=== PATIENT | female | born 1945 | race Caucasian/White ===

== ENCOUNTER → 2016-11-06 | Outpatient (CLI) | payer MEDICARE, BC ==
[2016-11-06 14:58] LABS: Calcium 9.3 mg/dL (8.4-10.2); Potassium 4.6 mmol/L (3.5-5.1); Total Bilirubin 0.4 mg/dL (0.2-1.3); Total Protein 8.1 g/dL (6.3-8.2)
--- NOTE | 2016-11-06 15:29 | XR ---
EXAMINATION TYPE: XR chest 2V DATE OF EXAM: 11/06/2016 2:47 PM COMPARISON: 05/06/16 HISTORY: Shortness of breath TECHNIQUE: Frontal and lateral views of the chest are obtained. FINDINGS: Scattered senescent parenchymal changes noted. Hyperinflation compatible with COPD. No evidence for infiltrate. No evidence for atelectasis. Heart size is stable. Mediastinal structures are stable and grossly unremarkable. No evidence for hilar prominence. Degenerative changes dorsal spine. IMPRESSION: 1. No evidence for acute pulmonary disease.
== END | disposition home or self-care (01) ==
LOC: LABWHC1 14:01
PROVIDERS: ATTEND Urology
DX: C64.2 Malignant neoplasm of left kidney, except renal pelvis (principal)
CPT/HCPCS: 36415; 71020; 80053

== ENCOUNTER → 2017-05-05 | Outpatient (CLI) | payer MEDICARE, BC ==
--- NOTE | 2017-05-05 13:13 | XR ---
EXAMINATION TYPE: XR chest 2V DATE OF EXAM: 05/05/2017 COMPARISON: 11/06/2016 HISTORY: Shortness of breath TECHNIQUE: Frontal and lateral views of the chest are obtained. FINDINGS: Scattered senescent parenchymal changes noted. Hyperinflation compatible with COPD. No evidence for infiltrate. No evidence for atelectasis. Heart size is stable. Mediastinal structures are stable and grossly unremarkable. No evidence for hilar prominence. Degenerative changes dorsal spine. IMPRESSION: 1. No evidence for acute pulmonary disease.
--- NOTE | 2017-05-05 13:20 | CT ---
EXAMINATION TYPE: CT abdomen wo con DATE OF EXAM: 05/05/2017 COMPARISON: 05/01/2016 HISTORY: Neoplasm Lt Kidney CT DLP: 160.9 mGycm Automated exposure control for dose reduction was used. TECHNIQUE: Helical acquisition of images was performed from the lung bases through the top of iliac crest to include entire abdomen. CONTRAST: Performed without Oral Contrast and without IV contrast. FINDINGS: LUNG BASES: No significant abnormality is appreciated. LIVER/GB: No significant abnormality is appreciated. PANCREAS: No significant abnormality is seen. SPLEEN: No significant abnormality is seen. ADRENALS: No significant abnormality is seen. KIDNEYS: Left nephrectomy changes identified. Left renal fossa is free of mass or tumor recurrence. T he right kidney demonstrates mild compensatory hypertrophy. Nonobstructing 3 mm calculus mid pole rig ht kidney. Additional nonobstructing calculus 3 mm lower pole right kidney. No hydronephrosis or sebastien l mass identified. BOWEL: Visualized bowel loops are of normal caliber. No obstructive change. No evidence for inflamma tory process. LYMPH NODES: No significant abnormality is appreciated. OSSEOUS STRUCTURES: Mild degenerative changes noted. FREE AIR: No free air is visualized. OTHER: IMPRESSION: 1. LEFT-SIDED NEPHRECTOMY CHANGE WITHOUT EVIDENCE FOR TUMOR RECURRENCE OR RESIDUAL MASS. 2. NONOBSTRUCTING RIGHT-SIDED NEPHROLITHIASIS.
[2017-05-05 13:27] LABS: Calcium 9.8 mg/dL (8.4-10.2); Potassium 4.9 mmol/L (3.5-5.1); Total Bilirubin 0.3 mg/dL (0.2-1.3); Total Protein 7.7 g/dL (6.3-8.2)
== END | disposition home or self-care (01) ==
LOC: RADCTMAIN 12:37
PROVIDERS: ATTEND Urology
DX: C64.2 Malignant neoplasm of left kidney, except renal pelvis (principal); N20.0 Calculus of kidney; Z88.0 Allergy status to penicillin; Z88.1 Allergy status to other antibiotic agents; Z88.2 Allergy status to sulfonamides
CPT/HCPCS: 71020; 74150; 80053

== ENCOUNTER → 2017-05-12 | Outpatient (CLI) | payer MEDICARE, BC ==
[2017-05-12 14:41] LABS: Basophils % (A) 1 %; CH 29.8; CHCM 32.3; Eosinophils # (A) 0.1 k/uL (0-0.7); Eosinophils % (A) 2 %; Luc # (Auto) 0.19; Luc % (Auto) 2; Lymphocytes # (A) 2.1 k/uL (1.0-4.8); Lymphocytes % (A) 26 %; MCH 30.2 pg (25.0-35.0); MCHC 32.5 g/dL (31.0-37.0); MCV 92.7 fL (80.0-100.0); Mean Platelet Volume 7.5; Monocytes # (A) 0.5 k/uL (0-1.0); Monocytes % (A) 7 %; Neutrophils # (A) 5.2 k/uL (1.3-7.7); Neutrophils % (A) 64 %; RBC 4.64 m/uL (3.80-5.40); RDW 13.9 % (11.5-15.5); WBC 8.2 k/uL (3.8-10.6); WBC (Perox) 7.87
[2017-05-12 15:59] LABS: Erythrocyte Sedimentation Rate 15 mm/hr (0-20)
== END | disposition home or self-care (01) ==
LOC: LABWHC1 14:25
PROVIDERS: ATTEND Internal Medicine
DX: C64.1 Malignant neoplasm of right kidney, except renal pelvis (principal)
CPT/HCPCS: 36415; 85025; 85652

== ENCOUNTER → 2017-08-07 | Outpatient (CLI) | payer MEDICARE, BC ==
--- NOTE | 2017-08-07 15:21 | XR ---
EXAMINATION TYPE: XR KUB DATE OF EXAM: 08/07/2017 COMPARISON: NONE HISTORY: Pain, urinary tract infection TECHNIQUE: One view abdominal series FINDINGS: The osseous structures are intact. The bowel gas pattern is nonspecific. Extensive postsurgical mccarty ges are noted. Vascular calcification seen. Tiny calcification pelvis 2 small to characterize. Arthro melissa of the hips and hypertrophic change of the spine. Upper abdomen not included on the film and, t herefore, limited. IMPRESSION: 1. Nonspecific abdomen.
== END ==
LOC: RADXRMAIN 14:59
PROVIDERS: ATTEND Physician Assistant
DX: N20.0 Calculus of kidney (principal)
CPT/HCPCS: 74000

== ENCOUNTER → 2017-08-27 | Outpatient (CLI) | payer MEDICARE, BC ==
--- NOTE | 2017-08-28 08:39 | US ---
EXAMINATION TYPE: US pelvic complete DATE OF EXAM: 08/27/2017 COMPARISON: CLINICAL HISTORY: R10.9 Abdominal Pelvic Pain. Repeated UTI's. Left kidney removed April 2016. Uteru s removed . Patient states having both ovaries. TECHNIQUE: Transabdominal (TA) EXAM MEASUREMENTS: Uterus: Surgically absent cm Right Ovary: 1.9 x 1.7 x 1.5 cm Left Ovary: 2.1 x 1.5 x 1.3 cm Urinary bladder is sonolucent. The posterior wall is normal 1. Uterus: Surgically absent 2. Endometrium: Surgically absent 3. Right Ovary: Appears small in size, no masses or cysts seen 4. Left Ovary: Appears small in size, no masses or cysts seen Color doppler imaging shows good vascular flow within the ovaries; there is no evidence for ovarian torsion. 5. Bilateral Adnexa: wnl 6. Posterior cul-de-sac: no free fluid IMPRESSION: 1. Normal post hysterectomy pelvic ultrasound.
== END ==
LOC: RADUSWWP 14:38
PROVIDERS: ATTEND Internal Medicine
DX: R10.9 Unspecified abdominal pain (principal); Z90.5 Acquired absence of kidney
CPT/HCPCS: 76856

== ENCOUNTER → 2017-10-27 | Outpatient (CLI) | payer MEDICARE, BC ==
--- NOTE | 2017-10-27 14:05 | XR ---
EXAMINATION TYPE: XR chest 2V DATE OF EXAM: 10/27/2017 COMPARISON: 05/05/2017 TECHNIQUE: PA and lateral views submitted. HISTORY: Renal cancer FINDINGS: The lungs are clear and there is no pneumothorax, pleural effusion, or focal pneumonia. Surgical cl ips in the abdomen noted. Hyperinflation suggests COPD. Biapical pleural thickening. Hypertrophic and degenerative change of the spine. IMPRESSION: 1. No acute process.
== END ==
LOC: RADXRMAIN 13:42
PROVIDERS: ATTEND Urology
DX: C65.9 Malignant neoplasm of unspecified renal pelvis (principal)
CPT/HCPCS: 71046

== ENCOUNTER → 2017-10-27 | Outpatient (CLI) | payer MEDICARE, BC ==
[2017-10-27 14:32] LABS: Albumin 4.4 g/dL (3.5-5.0); Calcium 9.9 mg/dL (8.4-10.2); Potassium 4.9 mmol/L (3.5-5.1); Total Bilirubin 0.3 mg/dL (0.2-1.3)
== END | disposition home or self-care (01) ==
LOC: LABWHC1 13:29
PROVIDERS: ATTEND Urology
DX: C64.2 Malignant neoplasm of left kidney, except renal pelvis (principal)
CPT/HCPCS: 36415; 71046; 80053

== ENCOUNTER → 2017-11-23 | Outpatient (CLI) | payer MEDICARE, BC ==
--- NOTE | 2017-11-23 14:56 | MR ---
EXAMINATION TYPE: MR knee RT wo con DATE OF EXAM: 11/23/2017 COMPARISON: Outside right knee x-ray July 28, 2017 HISTORY: Right knee pain per order. Inner knee pain and swelling since [place] per patient. TECHNIQUE: Multiplanar, multisequence images of the knee is performed without IV contrast. FINDINGS: MEDIAL MENISCUS: Anterior horn is intact without tear. Oblique increased signal posterior horn is pre sent extending to inferior articular surface sagittal image 11. LATERAL MENISCUS: Anterior and posterior horns are intact without tear. CRUCIATE LIGAMENTS: The anterior and posterior cruciate ligaments are intact and unremarkable. COLLATERAL LIGAMENTS: The medial collateral ligament and lateral collateral ligament complex are inta ct and unremarkable. EXTENSOR MECHANISM: Visualized quadriceps and patellar tendons are intact. EFFUSION: Small to moderate size suprapatellar joint effusion. POPLITEAL CYST: No popliteal/raymond cyst. TRICOMPARTMENT SPACES: There is mild to moderate joint space loss patellofemoral compartment. There i s mild joint space loss laterally medial tibiofemoral compartments. No significant spurring is seen. CARTILAGE: There is chondromalacia patella with fissuring and cartilaginous loss likely posterior pat ellar pole. There is full-thickness loss noted superiorly. No reactive osseous changes are identified . Some fissuring and cartilaginous loss medial tibiofemoral compartment is noted. BONE MARROW SIGNAL: No focal abnormal marrow signal is appreciated. OTHER: No additional significant abnormality is appreciated. IMPRESSION: 1. Full-thickness tear posterior horn of medial meniscus. 2. Small to moderate size suprapatellar joint effusion. 3. Mild to moderate tricompartment degenerative changes with full-thickness chondromalacia patella no lissy superiorly. No reactive osseous changes identified.
== END | disposition home or self-care (01) ==
LOC: RADMRIMAIN 13:14
PROVIDERS: ATTEND Orthopaedic Surgery
DX: S83.241A Other tear of medial meniscus, current injury, right knee, initial encounter (principal); M22.41 Chondromalacia patellae, right knee

== ENCOUNTER → 2017-12-29 | Outpatient (CLI) | payer MEDICARE, BC ==
[2017-12-29 14:20] LABS: Basophils % (A) 1 %; Eosinophils # (A) 0.1 k/uL (0-0.7); Eosinophils % (A) 2 %; HCT 43.5 % (34.0-46.0); HGB 13.9 gm/dL (11.4-16.0); Lymphocytes # (A) 2.3 k/uL (1.0-4.8); Lymphocytes % (A) 29 %; MCH 29.5 pg (25.0-35.0); MCV 92.2 fL (80.0-100.0); Mean Platelet Volume 6.8; Monocytes # (A) 0.5 k/uL (0-1.0); Monocytes % (A) 6 %; Neutrophils # (A) 4.8 k/uL (1.3-7.7); Neutrophils % (A) 60 %; Platelet Count 315 k/uL (150-450); RBC 4.72 m/uL (3.80-5.40)
[2017-12-29 14:36] LABS: Potassium 4.8 mmol/L (3.5-5.1)
== END | disposition home or self-care (01) ==
LOC: LABPAT 13:41
PROVIDERS: ATTEND Orthopaedic Surgery
DX: Z01.812 Encounter for preprocedural laboratory examination (principal); Z01.818 Encounter for other preprocedural examination; M23.91 Unspecified internal derangement of right knee
CPT/HCPCS: 36415; 80051; 85025; 93005

== ENCOUNTER → 2018-01-12 | Outpatient (CLI) | payer MEDICARE, BC ==
[~2018-01-12] MED LIST: ONDANSETRON 4 MG/2 ML VIAL ONE
== END | disposition home or self-care (01) ==
LOC: LABWHC1 14:07
PROVIDERS: ATTEND Urology
DX: C64.2 Malignant neoplasm of left kidney, except renal pelvis (principal)
CPT/HCPCS: 36415; 82565; 84520

== ENCOUNTER → 2018-01-14 | Day surgery (SDC) | payer MEDICARE, BC ==
[2018-01-12 10:04] VITALS: BMI 24.5
--- NOTE | 2018-01-13 14:56 | HP ---
HISTORY AND PHYSICAL REASON FOR ADMISSION: Surgery scheduled for 01/14/2018 HISTORY OF PRESENT ILLNESS: Donna Holland is a 72-year-old patient seen with progressive right knee pain. We discussed treatment options. She elected to proceed with right knee arthroscopy. Consent was obtained. PAST MEDICAL HISTORY: Hypertension. PAST SURGICAL HISTORY: Cataract surgery, hysterectomy. MEDICATIONS: Daily medications include: Inderal, Tylenol. ALLERGIES: PENICILLIN, SULFA, ERYTHROMYCINS, DILANTIN. SOCIAL HISTORY: Patient denies tobacco use. PHYSICAL EXAMINATION: Evaluation right knee range of motion 0 to 130 degrees. Mild effusion. Tenderness along the medial joint line. Positive medial Dustin's. Medial crepitus with range of motion. Ligaments stable. Hip rotation without pain. Distal neurovascular exam intact. RADIOGRAPHS: Radiographs of the right knee revealed moderate osteoarthritis. MRI of the right knee revealed a medial meniscal tear. IMPRESSION: 1. Internal derangement right knee with medial meniscal tear. 2. Right knee osteoarthritis. 3. Hypertension. PLAN: Right knee arthroscopy with partial meniscectomy and debridement. Surgery scheduled for 01/14/18. MMODL / IJN: [id number] /
[~2018-01-14] MED LIST changes: +BUPIVACAINE (PF) 0.25% 30 ML VIAL SQ ONE; +CLINDAMYCIN 900 MG in DEXTROSE 5% IN WATER 50 ML IVPB ONE; +DEXAMETHASONE SOD PHOSPHATE 10 MG/ML 1 ML VIAL IV ONE; +HYDROcodone/APAP 5-325MG 1 EACH TAB PO ONE; +HYDROmorphone 0.5 MG/0.5 ML SYRINGE IVP PRN; +LACTATED RINGERS 1,000 ML IV SCH; +LIDOCAINE 1% 20 ML VIAL (10MG/ML) FOR IV START INTRADERMA PRN; +LIDOCAINE 1% INJ 10MG/ML (20 ML MDV) ONE; +MIDAZOLAM 2 MG/2 ML VIAL IV PRN; +MIDAZOLAM 2 MG/2 ML VIAL ONE; +MORPHINE SULFATE 2 MG/ML SYRINGE IV PRN; +ONDANSETRON 4 MG/2 ML VIAL IVP ONE; -ONDANSETRON 4 MG/2 ML VIAL ONE; +PROPOFOL 10 MG/ML 20 ML VIAL IV ONE; +SCOPOLAMINE 1.5MG/72HR PATCH TRANSDERM ONE; +SUCCINYLCHOLINE CHLORIDE 100 MG/5 ML SYR IV ONE; +fentaNYL (PF) 50 MCG/ML 2 ML AMP IV PRN; +fentaNYL (PF) 50 MCG/ML 2 ML AMP ONE
[2018-01-14 06:59] LABS: Glucose,Whole Blood 74 mg/dL (75-99)
[2018-01-14 08:21] VITALS: RESP 16; TEMP 97.2
--- NOTE | 2018-01-14 08:22 | P.OP ---
Date of Procedure: 01/14/18 Preoperative Diagnosis: Internal derangement right knee Postoperative Diagnosis: 1. Tear medial and lateral meniscus right knee 2. Grade 3 chondromalacia medial femoral condyle right knee 3. Grade 3 chondromalacia patella right knee 4. Reactive synovitis medial and suprapatellar compartments right knee Procedure(s) Performed: 1. Arthroscopic partial medial and lateral meniscectomy right knee 2. Arthroscopic chondroplasty medial femoral condyle right knee 3. Arthroscopic chondroplasty patella right knee 4. Arthroscopic partial synovectomy medial and suprapatellar compartments right knee Anesthesia: NATHALIEA, local Surgeon: Joe Pendleton Estimated Blood Loss (ml): 9 Pathology: none sent Condition: stable Disposition: PACU Indications for Procedure: 72-year-old patient seen with progressive right knee pain. After having treatment options discussed, she elected to proceed with arthroscopy. Operative Findings: see description of procedure Description of Procedure: Patient was taken to the operative suite. Patient underwent a general anesthetic by the department of anesthesia. Patient was given preoperative antibiotics. The right lower extremity was placed in a well-padded arthroscopic leg martin. The right leg was prepped and draped in the normal sterile orthopedic fashion. A lateral parapatellar and suprapatellar incision was made. Trochars were inserted. Arthroscopy was initiated. Suprapatellar pouch revealed diffuse thick reactive synovitis. The patellofemoral joint appeared to articulate congruently. There was grade 3 chondromalacia with osteochondral tears involving both the medial and lateral facets.. The scope was guided into the medial gutter. No loose bodies or plica were identified. The scope was then guided into the medial compartment. A medial parapatellar incision was made. Trocar inserted followed by probe. There was a complex tear posterior horn medial meniscus. There were grade 3 chondromalacia changes medial femoral condyle with osteochondral tears. There was reactive synovitis anteriorly. I performed a partial medial meniscectomy down to stable tissue. I performed a chondroplasty of the femoral condyle and partial synovectomy. The residual meniscus and osteochondral surface were stable. Scope and probe were then guided into the intercondylar notch. Cruciates were identified, probed and found to be stable. The scope and probe were then guided into lateral compartment. There was a small radial tear mid body lateral meniscus. Mild grade 1 chondromalacia changes of the tibial plateau with no osteochondral tears. No reactive synovitis or loose bodies. I performed a partial lateral meniscectomy down to stable tissue. The residual meniscus was stable. The scope was in guided back into the suprapatellar compartment. I introduced a motorized shaver into the suprapatellar compartment. I debrided some piecemeal fragments of meniscus I encountered. I performed a partial synovectomy. I performed a chondroplasty of the patella down to stable tissue. The residual osteochondral surface of patella was probed and found to be stable. I took one more look around the entire knee, no residual debris. Instruments were now removed from the joint. The joint was infiltrated with .25% Marcaine. Steri- Strips were applied to the portal sites. Sterile dressings were applied. The patient was placed into a REJI hose. No tourniquet was utilized. The patient was awakened, transferred to a bed and taken to recovery stable satisfactory condition.
[2018-01-14 09:37] VITALS: BP 143/79; PULSE 74
== END | disposition home or self-care (01) ==
LOC: OR 06:13
PROVIDERS: ATTEND Orthopaedic Surgery
DX: S83.231A Complex tear of medial meniscus, current injury, right knee, initial encounter (principal); S83.281A Other tear of lateral meniscus, current injury, right knee, initial encounter; X58.XXXA Exposure to other specified factors, initial encounter; M94.261 Chondromalacia, right knee; M22.41 Chondromalacia patellae, right knee; M65.861 Other synovitis and tenosynovitis, right lower leg; M25.461 Effusion, right knee; M24.851 Other specific joint derangements of right hip, not elsewhere classified; M17.11 Unilateral primary osteoarthritis, right knee; I10 Essential (primary) hypertension; R56.9 Unspecified convulsions; R25.1 Tremor, unspecified; Z90.5 Acquired absence of kidney; Z79.82 Long term (current) use of aspirin; Z79.899 Other long term (current) drug therapy; Z88.1 Allergy status to other antibiotic agents; Z88.0 Allergy status to penicillin; Z88.2 Allergy status to sulfonamides; Z88.8 Allergy status to other drugs, medicaments and biological substances; Z88.7 Allergy status to serum and vaccine
CPT/HCPCS: 29880; J2250; J1100; J2405; J2001; J3010; J0330; J2704

== ENCOUNTER → 2018-02-09 | Outpatient (CLI) | payer MEDICARE, BC ==
[2018-02-09 15:57] LABS: HGB 13.6 gm/dL (11.4-16.0); MCH 29.8 pg (25.0-35.0); MCHC 32.4 g/dL (31.0-37.0); Mean Platelet Volume 6.3; Platelet Count 316 k/uL (150-450); RBC 4.56 m/uL (3.80-5.40); WBC 7.7 k/uL (3.8-10.6)
[2018-02-09 16:14] LABS: Albumin 4.3 g/dL (3.5-5.0); Calcium 9.4 mg/dL (8.4-10.2); Potassium 4.4 mmol/L (3.5-5.1); Total Bilirubin 0.3 mg/dL (0.2-1.3); Total Protein 7.2 g/dL (6.3-8.2)
[2018-02-09 19:25] LABS: Erythrocyte Sedimentation Rate 13 mm/hr (0-20)
== END | disposition home or self-care (01) ==
LOC: LABWHC1 14:53
PROVIDERS: ATTEND Internal Medicine
DX: M25.50 Pain in unspecified joint (principal); I10 Essential (primary) hypertension; E78.2 Mixed hyperlipidemia; J44.9 Chronic obstructive pulmonary disease, unspecified
CPT/HCPCS: 36415; 80053; 84443; 85027; 85652; 86038

== ENCOUNTER → 2018-04-26 | Outpatient (CLI) | payer MEDICARE, BC ==
--- NOTE | 2018-04-26 15:27 | XR ---
EXAMINATION TYPE: XR chest 2V DATE OF EXAM: 04/26/2018 COMPARISON: NONE HISTORY: Renal cell carcinoma. Surveillance. TECHNIQUE: Frontal and lateral views of the chest are obtained. FINDINGS: There is no focal air space opacity, pleural effusion, or pneumothorax seen. Pulmonary hyp erinflation with biapical lucency again suggest underlying COPD. The cardiac silhouette size is withi n normal limits. Mild multilevel degenerative changes of the thoracic spine are noted. The osseous s tructures are intact. There are postsurgical changes in the upper abdomen. IMPRESSION: No acute cardiopulmonary process. Radiographic sequela of COPD.
--- NOTE | 2018-04-26 16:59 | CT ---
EXAMINATION TYPE: CT abdomen wo con DATE OF EXAM: 04/26/2018 COMPARISON: 05/05/2017 HISTORY: 72-year-old female follow-up renal cell cancer and left nephrectomy. TECHNIQUE: Contiguous axial scanning of the abdomen without IV contrast. Coronal and sagittal reconst ructions performed. CT DLP: 213.9 mGycm Automated exposure control for dose reduction was used. FINDINGS: Heart normal size without pericardial effusion. Strandy atelectasis or scarring at the left base. No pleural effusion. Noncontrast appearance of the liver, gallbladder, right adrenal gland, spleen, and pancreas shows no gross abnormality. A few punctate 2 mm calculi in the right kidney. No hydronephrosis. Status post left nephrectomy with surgical clips in the nephrectomy bed. No suspicious soft tissue or nodularity within the nephrectomy bed. The left adrenal gland is difficult to clearly delineate due to the vessels coursing through this region and surgical material. Couple additional surgical clips i n the left para-aortic region. Moderate atherosclerotic calcifications throughout the abdominal aorta and proximal iliac arteries. No mesenteric or retroperitoneal lymphadenopathy seen. No dilated small bowel, free fluid, or free air. No significant stool burden or pericolonic inflammat ory change seen in the upper abdomen. Bones: Mild degenerative disc disease throughout the lumbar spine. Facet arthropathy lower lumbar spi ne. IMPRESSION: 1. STATUS POST LEFT NEPHRECTOMY. NO EVIDENCE FOR LOCOREGIONAL RECURRENCE OR METASTATIC DISEASE ON THI S NONCONTRAST CT. 2. STABLE NONOBSTRUCTIVE PUNCTATE 2 MM RIGHT RENAL CALCULI.
== END | disposition home or self-care (01) ==
LOC: RADCTMAIN 14:48
PROVIDERS: ATTEND Urology
DX: N20.0 Calculus of kidney (principal); J44.9 Chronic obstructive pulmonary disease, unspecified; Z85.528 Personal history of other malignant neoplasm of kidney; Z90.5 Acquired absence of kidney
CPT/HCPCS: 71046; 74150

== ENCOUNTER → 2018-05-18 | Outpatient (CLI) | payer MEDICARE, BC ==
--- NOTE | 2018-05-19 12:11 | MM ---
Reason for exam: screening (asymptomatic). Last mammogram was performed 1 year and 8 months ago. History: Patient is postmenopausal and has history of other cancer at age 70. Implant Removal of both breasts, 1998. Took estrogen for 1 year beginning at age 50. Physical Findings: A clinical breast exam by your physician is recommended on an annual basis and results should be correlated with mammographic findings. MG 3D Screening Mammo W/Cad Bilateral CC and MLO view(s) were taken. Prior study comparison: September 22, 2016, bilateral MG 3d screening mammo w/cad. April 06, 2015, bilateral MG screening mammo w CAD. The breast tissue is heterogeneously dense. This may lower the sensitivity of mammography. No suspicious abnormality. No significant changes when compared with prior studies. ASSESSMENT: Negative, BI-RAD 1 RECOMMENDATION: Routine screening mammogram of both breasts in 1 year.
== END | disposition home or self-care (01) ==
LOC: RADMAMWWP 13:07
PROVIDERS: ATTEND Internal Medicine
DX: Z12.31 Encounter for screening mammogram for malignant neoplasm of breast (principal)
CPT/HCPCS: 77063; 77067

== ENCOUNTER → 2018-08-10 | Outpatient (CLI) | payer MEDICARE, BC ==
[2018-08-10 15:18] LABS: HCT 42.6 % (34.0-46.0); MCH 31.1 pg (25.0-35.0); MCHC 32.8 g/dL (31.0-37.0); MCV 94.7 fL (80.0-100.0); Mean Platelet Volume 6.8; Platelet Count 305 k/uL (150-450); WBC 6.9 k/uL (3.8-10.6)
[2018-08-10 17:38] LABS: Erythrocyte Sedimentation Rate 6 mm/hr (0-20)
== END | disposition home or self-care (01) ==
LOC: LABWHC1 14:10
PROVIDERS: ATTEND Internal Medicine
DX: Z48.816 Encounter for surgical aftercare following surgery on the genitourinary system (principal); Z90.5 Acquired absence of kidney
CPT/HCPCS: 36415; 82565; 84520; 85027; 85652

== ENCOUNTER 2019-01-24 12:49 | Observation (INO) | payer MEDICARE, BC ==
[2019-01-24] MEDS ORDERED: SODIUM CHLORIDE 0.9% 1,000 ML IV STA ×2 (13:03)
--- NOTE | 2019-01-24 13:20 | ED ---
Chest Pain HPI - General Chief Complaint: Chest Pain Stated Complaint: palpitations Time Seen by Provider: 01/24/19 13:03 Source: patient Mode of arrival: ambulatory Limitations: no limitations - Related Data Home Medications Medication Instructions Recorded Confirmed Aspirin 81 mg PO DAILY 11/20/14 01/24/19 PHENobarbital [Phenobarbital] 32.4 mg PO BID 11/20/14 01/24/19 Metoprolol Succinate (ER) [Toprol 50 mg PO DAILY 01/12/18 01/24/19 Xl] Multivitamins, Thera [Multivitamin 1 tab PO DAILY 01/12/18 01/24/19 (formulary)] Acetaminophen [Tylenol] 650 mg PO Q4H PRN 01/24/19 01/24/19 Allergies Allergy/AdvReac Type Severity Reaction Status Date / Time benoxinate HCl [From Fluress] Allergy Unknown Verified 01/24/19 14:52 erythromycin base Allergy Wheezing Verified 01/24/19 14:52 fluorescein sodium Allergy Unknown Verified 01/24/19 14:52 [From Fluress] Influenza Virus Vaccines Allergy tremors,muscle Verified 01/24/19 14:52 weakness Penicillins Allergy TONGUE Verified 01/24/19 14:52 SWELLING phenytoin sodium Allergy HIGH FEVER Verified 01/24/19 14:52 [From Dilantin] phenytoin sodium extended Allergy HIGH FEVER Verified 01/24/19 14:52 [From Dilantin] Sulfa (Sulfonamide AdvReac Wheezing Verified 01/24/19 14:52 Antibiotics) Review of Systems ROS Statement: Those systems with pertinent positive or pertinent negative responses have been documented in the HPI. ROS Other: All systems not noted in ROS Statement are negative. EKG Findings - EKG Comments: EKG Findings:: EKG shows sinus rhythm rate of 89, NC 136, QRS 72, QTc 406 Past Medical History Past Medical History: Cancer, Eye Disorder, Hyperlipidemia, Hypertension, Osteoarthritis (OA), Seizure Disorder Additional Past Medical History / Comment(s): two seizures in 1970's, varicose veins, left kidney mass, hiatal hernia, kidney cancer History of Any Multi-Drug Resistant Organisms: None Reported Past Surgical History: Hysterectomy, Tonsillectomy Additional Past Surgical History / Comment(s): CYSTOCELE repair,VEIN STRIPPING, left cataract Past Anesthesia/Blood Transfusion Reactions: Motion Sickness, Postoperative Nausea & Vomiting (PONV) Additional Past Anesthesia/Blood Transfusion Reaction / Comment(s): HAD SEVERE TREMORS POST SPINAL ANESTHESIA Past Psychological History: No Psychological Hx Reported Smoking Status: Former smoker Past Alcohol Use History: None Reported Past Drug Use History: None Reported - Past Family History Mother Family Medical History: Coronary Artery Disease (CAD), Hypertension Additional Family Medical History / Comment(s): CABG Father Family Medical History: Cancer Additional Family Medical History / Comment(s): COLON Sister(s) Family Medical History: Cancer Additional Family Medical History / Comment(s): OVARIAN General Exam Limitations: no limitations General appearance: alert, in no apparent distress Head exam: Present: atraumatic, normocephalic, normal inspection Eye exam: Present: normal appearance, PERRL, EOMI. Absent: scleral icterus, conjunctival injection, periorbital swelling ENT exam: Present: normal exam, mucous membranes moist Neck exam: Present: normal inspection. Absent: tenderness, meningismus, lymphadenopathy Respiratory exam: Present: normal lung sounds bilaterally. Absent: respiratory distress, wheezes, rales, rhonchi, stridor Cardiovascular Exam: Present: regular rate, normal rhythm, normal heart sounds. Absent: systolic murmur, diastolic murmur, rubs, gallop, clicks GI/Abdominal exam: Present: soft, normal bowel sounds. Absent: distended, tenderness, guarding, rebound, rigid Extremities exam: Present: normal inspection, full ROM, normal capillary refill. Absent: tenderness, pedal edema, joint swelling, calf tenderness Back exam: Present: normal inspection Neurological exam: Present: alert, oriented X3, CN II-XII intact Psychiatric exam: Present: normal affect, normal mood Skin exam: Present: warm, dry, intact, normal color. Absent: rash Course Vital Signs 01/24/19 01/24/19 01/24/19 12:53 13:12 14:33 Temperature 98.2 F Pulse Rate 148 H 92 76 Respiratory 20 18 18 Rate Blood Pressure 176/112 175/92 165/81 O2 Sat by Pulse 96 98 100 Oximetry - Reevaluation(s) Reevaluation #1: 01/24/19 15:23 Medical record reviewed Reevaluation #2: 01/24/19 15:23 she remains in normal sinus rhythm here in the ER Reevaluation #3: 01/24/19 15:24 Patient explained at length regarding findings, need for cardiology evaluation and admission Chest Pain MDM - MDM 73 female to ED for palpitations, arrhythmia. Patient is no longer arrhythmia she converted being brought back to the room. Patient be admitted for cardiology evaluation Disposition Clinical Impression: Atypical chest pain, Arrhythmia, Tachycardia Disposition: ADMITTED IP TO THIS HOSP Condition: Fair Is patient prescribed a controlled substance at d/c from ED?: No
[2019-01-24 13:41] LABS: Basophils # (A) 0.1 k/uL (0-0.2); Basophils % (A) 1 %; Eosinophils # (A) 0.2 k/uL (0-0.7); Eosinophils % (A) 2 %; HCT 45.3 % (34.0-46.0); HGB 14.7 gm/dL (11.4-16.0); Lymphocytes # (A) 2.3 k/uL (1.0-4.8); Lymphocytes % (A) 30 %; MCH 29.6 pg (25.0-35.0); MCHC 32.5 g/dL (31.0-37.0); MCV 91.2 fL (80.0-100.0); Mean Platelet Volume 6.6; Monocytes # (A) 0.6 k/uL (0-1.0); Monocytes % (A) 8 %; Neutrophils # (A) 4.4 k/uL (1.3-7.7); Neutrophils % (A) 57 %; Platelet Count 302 k/uL (150-450); RBC 4.97 m/uL (3.80-5.40); WBC 7.7 k/uL (3.8-10.6)
--- NOTE | 2019-01-24 13:44 | XR ---
EXAMINATION TYPE: XR chest 2V DATE OF EXAM: 01/24/2019 COMPARISON: Prior chest x-ray 04/26/2018 HISTORY: Chest pain TECHNIQUE: Frontal and lateral views of the chest are obtained. FINDINGS: There is no focal air space opacity, pleural effusion, or pneumothorax seen. The cardiac silhouette size is within normal limits. There are overlying cardiac leads. The aorta is dense. Surgi janene clips present in the upper abdomen. Prominent lung volume may be indicative of underlying COPD. T he osseous structures are intact. IMPRESSION: No acute cardiopulmonary process.
[2019-01-24 13:47] LABS: Albumin 4.6 g/dL (3.5-5.0); Calcium 9.9 mg/dL (8.4-10.2); Magnesium 2.2 mg/dL (1.6-2.3); Potassium 4.5 mmol/L (3.5-5.1); Total Bilirubin 0.4 mg/dL (0.2-1.3); Total Protein 8.2 g/dL (6.3-8.2)
[2019-01-24 13:54] LABS: INR 0.9 (<1.2); Partial Thromboplastin Time 24.3 sec (22.0-30.0); Prothrombin Time 9.8 sec (9.0-12.0)
[2019-01-24] MEDS ORDERED: HEPARIN SODIUM,PORCINE 5,000 UNIT/ML 1 ML VIAL IV PRN (14:01)
[2019-01-24] MEDS ORDERED: HEPARIN SODIUM,PORCINE 5,000 UNIT/ML 1 ML VIAL IV ONE (14:01)
[2019-01-24] MEDS ORDERED: NITROGLYCERIN SL TABS 0.4 MG TAB SUBLINGUAL PRN (14:01)
[2019-01-24] MEDS ORDERED: HEPARIN SOD,PORK IN 0.45% NACL 25,000 UNIT in 0.45% NACL 1 250ML.BAG IV SCH (14:15)
--- NOTE | 2019-01-24 15:32 | P.HPIM ---
History of Present Illness H&P Date: 01/24/19 Chief Complaint: Heart palpitations This is a 73-year-old female, patient of Dr. Oliver. She has a known past medical history of hypertension, hyperlipidemia, any cancer with a left nephrectomy, seizure disorder last seizure was in . Patient reports this morning she could feel palpitations on the left side of her chest she felt that her heart was pounding. Also having a burning sensation on the left side of her chest. She reports the symptoms were behind the left breast. She took her vitals at home she reports that her pulse was running between the 140s to 150s. She reports taking her metoprolol home and not skipping any dosages. She admits to feeling a little nauseated and fatigued. She denies any actual chest pain. She denies any vomiting, bowel movement changes or urinary symptoms. Denies any abdominal pain. Denies any cough fever chills or sweats. She denies any history of cardiac arrhythmias. Her last stress test was about 6 years ago and she reports that being normal. She denies any thyroid abnormality. Thyroid level will be checked. Magnesium is 2.2. Chest x-ray negative. EKG showing a normal sinus rhythm. She is currently on IV heparin. Her initial heart rate on admission was 148 is down to 76. Blood pressure was 176/112 and is now 165/81. Satting at 100% on 2 L. First troponin is negative. She does have a mildly stephen vated lipase of 404. Denies any alcohol history. Denies any history of pancreatitis. Denies any abdominal pain. Patient seen and examined in the ER Review of Systems Please refer to HPI otherwise unremarkable Past Medical History Past Medical History: Cancer, Eye Disorder, Hyperlipidemia, Hypertension, Osteoarthritis (OA), Seizure Disorder Additional Past Medical History / Comment(s): two seizures in , varicose veins, left kidney mass, hiatal hernia, kidney cancer History of Any Multi-Drug Resistant Organisms: None Reported Past Surgical History: Hysterectomy, Tonsillectomy Additional Past Surgical History / Comment(s): CYSTOCELE repair,VEIN STRIPPING, left cataract Past Anesthesia/Blood Transfusion Reactions: Motion Sickness, Postoperative Nausea & Vomiting (PONV) Additional Past Anesthesia/Blood Transfusion Reaction / Comment(s): HAD SEVERE TREMORS POST SPINAL ANESTHESIA Past Psychological History: No Psychological Hx Reported Smoking Status: Former smoker Past Alcohol Use History: None Reported Past Drug Use History: None Reported - Past Family History Mother Family Medical History: Coronary Artery Disease (CAD), Hypertension Additional Family Medical History / Comment(s): CABG Father Family Medical History: Cancer Additional Family Medical History / Comment(s): COLON Sister(s) Family Medical History: Cancer Additional Family Medical History / Comment(s): OVARIAN Medications and Allergies Home Medications Medication Instructions Recorded Confirmed Type Aspirin 81 mg PO DAILY 11/20/14 01/24/19 History PHENobarbital [Phenobarbital] 32.4 mg PO BID 11/20/14 01/24/19 History Metoprolol Succinate (ER) [Toprol 50 mg PO DAILY 01/12/18 01/24/19 History Xl] Multivitamins, Thera [Multivitamin 1 tab PO DAILY 01/12/18 01/24/19 History (formulary)] Acetaminophen [Tylenol] 650 mg PO Q4H PRN 01/24/19 01/24/19 History Allergies Allergy/AdvReac Type Severity Reaction Status Date / Time benoxinate HCl [From Fluress] Allergy Unknown Verified 01/24/19 14:52 erythromycin base Allergy Wheezing Verified 01/24/19 14:52 fluorescein sodium Allergy Unknown Verified 01/24/19 14:52 [From Fluress] Influenza Virus Vaccines Allergy tremors,muscle Verified 01/24/19 14:52 weakness Penicillins Allergy TONGUE Verified 01/24/19 14:52 SWELLING phenytoin sodium Allergy HIGH FEVER Verified 01/24/19 14:52 [From Dilantin] phenytoin sodium extended Allergy HIGH FEVER Verified 01/24/19 14:52 [From Dilantin] Sulfa (Sulfonamide AdvReac Wheezing Verified 01/24/19 14:52 Antibiotics) Physical Exam Vitals: Vital Signs Temp Pulse Resp BP Pulse Ox 01/24/19 14:33 76 18 165/81 100 01/24/19 13:12 92 18 175/92 98 01/24/19 12:53 98.2 F 148 H 20 176/112 96 Intake and Output 01/24/19 01/24/19 01/24/19 06:59 14:59 22:59 Other: Weight 68.039 kg Head normocephalic Neck supple Lungs clear to auscultation bilaterally no wheezing or crackles Heart regular rate and rhythm S1-S2, no rub or gallop Abdomen is soft nontender nondistended positive bowel sounds no hepatosplenomegaly Extremities no edema Neuro alert and orientated to 3 Results CBC & Chem 7: 01/24/19 13:14 01/24/19 13:14 Labs: Abnormal Lab Results - Last 24 Hours (Table) 01/24/19 Range/Units 13:14 Sodium 136 L (137-145) mmol/L BUN 22 H (7-17) mg/dL Creatinine 1.14 H (0.52-1.04) mg/dL Glucose 106 H (74-99) mg/dL Lipase 404 H (23-300) U/L Assessment and Plan Assessment: 1. Palpitations with tachycardia heart rate in the 140s on admission. Converted spontaneously back to a normal sinus rhythm. EKG normal sinus rhythm heart rate in the 70s. Patient started on IV heparin in the ER. Cardiology has been placed on consult. Magnesium normal at 2.2 potassium normal at 4.5. Check thyroid level. First troponin is negative. We'll resume metoprolol. Chest x- ray negative 2. Chest discomfort with burning sensation. Monitor cardiac enzymes. Await cardiology evaluation. Last stress test 5 years ago reported normal. 3. Elevated lipase 404. Repeat lipase in a.m. Denies abdominal pain, denies any alcohol use 4. History of kidney cancer with left nephrectomy 04/30/2016 5. History of seizure disorder continue the phenobarbital. Last seizure was in 1970s 6. Essential hypertension GI prophylaxis Protonix and DVT prophylaxis IV heparin Time with Patient: Greater than 30 (Greater than 50% of the total time spent in counseling and coordination of care.I performed an examination of the patient and discussed their management with the physician Dean For Student Affairs. I have reviewed the Physician Dean For Student Affairs's notes and agree with the documented findings and plan of care)
[2019-01-24] MEDS ORDERED: ACETAMINOPHEN TAB 325 MG TAB PO PRN (15:33)
[2019-01-24 23:07] LABS: T4, Free (Free Thyroxine) 0.75 ng/dL (0.78-2.19)
[2019-01-24] MEDS: PHENobarbital 32.4 MG TAB PO SCH (23:36)
[2019-01-25 00:43] LABS: Appearance,Urine Clear (Clear); Bacteria,Urine Many /hpf; Bilirubin,Urine Negative (Negative); Blood,Urine Negative (Negative); Color,Urine Yellow; Glucose,Urine (UA) Negative (Negative); Hyaline Casts,Urine 18 /lpf (0-2); Ketones,Urine Negative (Negative); Leukocyte Esterase,Urine Moderate (Negative); Mucus,Urine Rare /hpf; Nitrite,Urine Negative (Negative); PH, Urine 5.5 (5.0-8.0); Protein,Urine Negative (Negative); RBC,Urine <1 /hpf (0-5); Specific Gravity,Urine 1.018 (1.001-1.035); Squamous Epithelial Cell,Urine 5 /hpf (0-4); Urobilinogen,Urine <2.0 mg/dL (<2.0); WBC,Urine 20 /hpf (0-5)
[2019-01-25 05:04] LABS: Basophils % (A) 0 %; Eosinophils # (A) 0.2 k/uL (0-0.7); Eosinophils % (A) 2 %; HGB 13.7 gm/dL (11.4-16.0); Lymphocytes # (A) 2.8 k/uL (1.0-4.8); Lymphocytes % (A) 33 %; MCH 29.1 pg (25.0-35.0); MCHC 31.9 g/dL (31.0-37.0); MCV 91.3 fL (80.0-100.0); Mean Platelet Volume 6.6; Monocytes # (A) 0.6 k/uL (0-1.0); Monocytes % (A) 7 %; Neutrophils # (A) 4.8 k/uL (1.3-7.7); Neutrophils % (A) 56 %; Platelet Count 295 k/uL (150-450); RBC 4.71 m/uL (3.80-5.40); RDW 13.1 % (11.5-15.5); WBC 8.6 k/uL (3.8-10.6)
[2019-01-25 05:27] LABS: Albumin 3.9 g/dL (3.5-5.0); Calcium 9.3 mg/dL (8.4-10.2); Magnesium 2.1 mg/dL (1.6-2.3); Potassium 4.3 mmol/L (3.5-5.1); Total Bilirubin 0.3 mg/dL (0.2-1.3)
[2019-01-25 07:22] VITALS: RESP 18
[2019-01-25] MEDS ORDERED: PANTOPRAZOLE 40 MG TABLET PO SCH (07:30)
[2019-01-25] MEDS ORDERED: ATORVASTATIN 80 MG TAB PO SCH (09:00)
[2019-01-25] MEDS ORDERED: ASPIRIN 325 MG TAB PO SCH (09:00)
[2019-01-25] MEDS ORDERED: METOPROLOL SUCCINATE (ER) 50 MG TAB.ER.24H PO SCH (09:00)
--- NOTE | 2019-01-25 10:12 | US ---
EXAMINATION TYPE: US abdomen complete DATE OF EXAM: 01/25/2019 COMPARISON: CT CLINICAL HISTORY: nausae elev lipase. EXAM MEASUREMENTS: Liver Length: 13.3 cm Gallbladder Wall: 0.2 cm CBD: 0.4 cm Spleen: 9.4 cm Right Kidney: 11.1 x 3.9 x 5.9 cm Left Kidney: Surgically absent Pancreas: visualized portions wnl Liver: wnl Gallbladder: No stones seen Evidence for sonographic Cardenas's sign: No CBD: wnl Spleen: wnl Right Kidney: No hydronephrosis or masses seen Left Kidney: Surgically absent Upper IVC: wnl Abd Aorta: wnl The liver is homogenous. The intrahepatic portion of the IVC and proximal abdominal aorta are within normal limits. There is no evidence of cholelithiasis. Common bile duct is unremarkable. The visu alized portions of the pancreas are homogenous. The spleen is unremarkable. No renal lesions are s een. IMPRESSION: 1. No distinct abnormality seen. Left kidney is surgically absent.
[2019-01-25] MEDS: PHENobarbital 32.4 MG TAB PO SCH (10:31)
[2019-01-25 11:29] VITALS: BP 158/71; PULSE 77; TEMP 97.6
[2019-01-25] MEDS ORDERED: MULTIVITAMINS, THERA 1 EACH TAB PO SCH (12:00)
--- NOTE | 2019-01-25 12:52 | P.CRDCN ---
History of Present Illness History of present illness: this is a pleasant 73-year-old female past medical history significant for hypertension, dyslipidemia, renal carcinoma status post nephrectomy and former nicotine dependence. She denies history of coronary artery disease. We have been asked to see her in consultation secondary to chest discomfort. She states yesterday she was sitting down and she started feeling her heart flut tering in her chest. She states it was very irregular and rapid. Initially there was no chest pain just palpitations with some shortness of breath. She attempted to check her blood pressure and her machine was reading error, she check her pulse ox and it was reading a heart rate of 140 and irregular. She states upon arrival to the ED she was still feeling the fluttering. They documented an initial heart rate in triage of 148. However, as she was walking back to a room in ED the fluttering subsided and has not returned. Telemetry tracings and EKGs all indicated sinus mechanism with no ectopy. Chest xray is negative for an acute cardiopulmonary process. Since the fluttering has subsided she feels an ache in the left precoridal region that has been constant all night with no specific aggravating or alleviating factors. She denies any further shortness of breath. Laboratory data reviewed, WBC 8.6, hemoglobin 13.7, platelets 295, sodium 140, potassium 4.3, creatinine on admission 1.14 down to 0.94 this morning, magnesium 2.1, cardiac enzymes negative 3, NT proBNP 646, lipase 428, LDL 163, HDL 64, triglycerides 251, total cholesterol 163, TSH 4. 0.9 with a free T4 of 0.75. She is also noted to have a urinary tract infection. She does complain of urinary frequency and nausea over the previous few days. At the time of my exam: CONSTITUTIONAL: Denies fever. Denies chills. EYES: Denies blurred vision. Denies vision changes. Denies eye pain. EARS, NOSE, MOUTH & THROAT: Denies headache. Denies sore throat. Denies ear pain. CARDIOVASCULAR: Complains of chest pain. Denies shortness of breath. Denies orthopnea. Denies PND. Denies palpitations. RESPIRATORY: Denies cough. GASTROINTESTINAL: Denies abdominal pain. Denies diarrhea. Denies constipation. Complains of nausea. Denies vomiting. MUSCULOSKELETAL: Denies myalgias. INTEGUMENTARY: Denies pruitis. Denies rash. NEUROLOGIC: Denies numbness. Denies tingling. Denies weakness. PSYCHIATRIC: Denies anxiety. Denies depression. ENDOCRINE: Denies fatigue. Denies weight change. Denies polydipsia. Denies polyurina. GENITOURINARY: Complains of urinary frequency. HEMATOLOGIC: Denies history of anemia. Denies bleeding. Blood pressure 158/71 heart rate 77 afebrile maintaining oxygen saturation on room air GENERAL: This is a 73-year-old female in no apparent distress at the time of my examination. HEENT: Head is atraumatic, normocephalic. Pupils are equal, round. Sclerae anicteric. Conjunctivae are clear. Mucous membranes of the mouth are moist. Neck is supple. There is no jugular venous distention. No carotid bruit is heard. LUNGS: Clear to auscultation no wheezes, rales or rhonchi. No chest wall tenderness is noted on palpation or with deep breathing. HEART: Regular rate and rhythm without murmurs, rubs or gallops. S1 and S2 heard. ABDOMEN: Soft, non-tender. Bowel sounds are heard. No organomegaly noted. EXTREMITIES: No evidence of peripheral edema and no calf tenderness noted. VASCULAR: Radial and dorsalis pedis pulses palpated, no evidence of clubbing. NEUROLOGIC: Patient is awake, alert and oriented x3. ASSESSMENT Palpitations and fluttering in the chest suggestive of arrhythmia. Possible a- fib with irregularity described. Telemetry tracings have been unremarkable. Chest pain, atypical for angina. An acute event has been ruled out. Elevated lipase, unknown etiology. Denies alcohol use. No abdominal discomfort. Urinary tract infection Dyslipidemia Hypertension Chronic kidney disease History of renal cell carcinoma s/p nephrectomy PLAN An acute coronary event has been ruled out. Obtain ultrasound of the abdomen, specifically to assess the pancreas. Obtain 2D echocardiogram and doppler study to assess cardiac structure and function. Perform stress echocardiogram to assess for stress induced ischemia. Apply 30-day event monitor upon discharge to assess for arrhythmia. Advised her to take a statin for her elevated cholesterol, she states she has tried all statin medications and has significant muscle aches. Does not wish to try again. Her risk has been explained to her in detail. Follow up with Dr. Davila upon discharge. Thank you kindly for this consultation. Nurse Practitioner note has been reviewed, I agree with a documented findings and plan of care. Patient was seen and examined. Past Medical History Past Medical History: Cancer, Eye Disorder, Hyperlipidemia, Hypertension, Osteoarthritis (OA), Seizure Disorder Additional Past Medical History / Comment(s): two seizures in 1970s, varicose veins, left kidney mass, hiatal hernia, kidney cancer History of Any Multi-Drug Resistant Organisms: None Reported Past Surgical History: Hysterectomy, Tonsillectomy Additional Past Surgical History / Comment(s): CYSTOCELE repair,VEIN STRIPPING, left cataract Past Anesthesia/Blood Transfusion Reactions: Motion Sickness, Postoperative Nausea & Vomiting (PONV) Additional Past Anesthesia/Blood Transfusion Reaction / Comment(s): HAD SEVERE TREMORS POST SPINAL ANESTHESIA Past Psychological History: No Psychological Hx Reported Smoking Status: Former smoker Past Alcohol Use History: None Reported Additional Past Alcohol Use History / Comment(s): QUIT SMOKING APPROX 2002,SMOKE D FOR APPROX 40 YRS, < 1 PPD Past Drug Use History: None Reported - Past Family History Mother Family Medical History: Coronary Artery Disease (CAD), Hypertension Additional Family Medical History / Comment(s): CABG Father Family Medical History: Cancer Additional Family Medical History / Comment(s): COLON Sister(s) Family Medical History: Cancer Additional Family Medical History / Comment(s): OVARIAN Medications and Allergies Home Medications Medication Instructions Recorded Confirmed Type Aspirin 81 mg PO DAILY 11/20/14 01/24/19 History PHENobarbital [Phenobarbital] 32.4 mg PO BID 11/20/14 01/24/19 History Metoprolol Succinate (ER) [Toprol 50 mg PO DAILY 01/12/18 01/24/19 History Xl] Multivitamins, Thera [Multivitamin 1 tab PO DAILY 01/12/18 01/24/19 History (formulary)] Acetaminophen [Tylenol] 650 mg PO Q4H PRN 01/24/19 01/24/19 History Allergies Allergy/AdvReac Type Severity Reaction Status Date / Time benoxinate HCl [From Fluress] Allergy Unknown Verified 01/24/19 14:52 erythromycin base Allergy Wheezing Verified 01/24/19 14:52 fluorescein sodium Allergy Unknown Verified 01/24/19 14:52 [From Fluress] Influenza Virus Vaccines Allergy tremors,muscle Verified 01/24/19 14:52 weakness Penicillins Allergy TONGUE Verified 01/24/19 14:52 SWELLING phenytoin sodium Allergy HIGH FEVER Verified 01/24/19 14:52 [From Dilantin] phenytoin sodium extended Allergy HIGH FEVER Verified 01/24/19 14:52 [From Dilantin] Sulfa (Sulfonamide AdvReac Wheezing Verified 01/24/19 14:52 Antibiotics) Physical Exam Vitals: Vital Signs Temp Pulse Pulse Resp BP BP Pulse Ox 01/25/19 11:29 97.6 F 77 18 158/71 96 01/25/19 08:00 18 01/25/19 07:15 97.7 F 76 18 148/75 96 01/25/19 04:00 97.8 F 78 16 143/68 95 01/25/19 03:42 16 01/25/19 00:34 78 16 01/24/19 23:30 16 01/24/19 22:35 97.4 F L 78 16 166/71 98 01/24/19 22:04 97.4 F L 81 18 154/72 97 01/24/19 18:15 78 18 159/72 98 01/24/19 16:21 71 18 167/74 99 01/24/19 14:33 76 18 165/81 100 01/24/19 13:12 92 18 175/92 98 01/24/19 12:53 98.2 F 148 H 20 176/112 96 Intake and Output 01/24/19 01/25/19 01/25/19 22:59 06:59 14:59 Intake Total 60.421 52.958 Balance 60.421 52.958 Intake: Intake, IV Titration 60.421 52.958 Amount Heparin Sod,Pork in 0.45% 60.421 52.958 NaCl 25,000 unit In 0.45 % NaCl 1 250ml.bag @ 12 UNITS/KG/HR 8.165 mls/hr IV .Q24H [facility] Rx#: [id number] Other: Voiding Method Toilet Toilet # Voids 2 Weight 68.039 kg Results 01/25/19 04:14 01/25/19 04:14 Cardiac Enzymes 01/24/19 01/24/19 01/24/19 Range/Units 13:14 13:14 19:51 AST 28 (14-36) U/L Troponin I <0.012 0.013 (0.000-0.034) ng/mL 01/25/19 01/25/19 Range/Units 01:21 04:14 AST 23 (14-36) U/L Troponin I <0.012 (0.000-0.034) ng/mL Coagulation 01/24/19 01/24/19 01/25/19 Range/Units 13:14 19:51 04:14 PT 9.8 (9.0-12.0) sec APTT 24.3 78.8 H 38.5 H (22.0-30.0) sec Lipids 01/25/19 Range/Units 04:14 Triglycerides 121 (<150) mg/dL Cholesterol 251 H (<200) mg/dL HDL Cholesterol 64 H (40-60) mg/dL CBC 01/24/19 01/25/19 Range/Units 13:14 04:14 WBC 7.7 8.6 (3.8-10.6) k/uL RBC 4.97 4.71 (3.80-5.40) m/uL Hgb 14.7 13.7 (11.4-16.0) gm/dL Hct 45.3 43.0 (34.0-46.0) % Plt Count 302 295 (150-450) k/uL Comprehensive Metabolic Panel 01/24/19 01/25/19 Range/Units 13:14 04:14 Sodium 136 L 140 (137-145) mmol/L Potassium 4.5 4.3 (3.5-5.1) mmol/L Chloride 100 105 (98-107) mmol/L Carbon Dioxide 26 26 (22-30) mmol/L BUN 22 H 16 (7-17) mg/dL Creatinine 1.14 H 0.94 (0.52-1.04) mg/dL Glucose 106 H 95 (74-99) mg/dL Calcium 9.9 9.3 (8.4-10.2) mg/dL AST 28 23 (14-36) U/L ALT 33 24 (9-52) U/L Alkaline Phosphatase 106 102 (38-126) U/L Total Protein 8.2 7.0 (6.3-8.2) g/dL Albumin 4.6 3.9 (3.5-5.0) g/dL Current Medications Generic Name Dose Route Start Last Admin Trade Name Freq PRN Reason Stop Dose Admin Acetaminophen 650 mg 01/24/19 15:33 Tylenol Tab PO Q4H PRN Pain Aspirin 325 mg 01/25/19 09:00 01/25/19 10:32 Aspirin PO 325 mg DAILY [facility] Administration Atorvastatin Calcium 80 mg 01/25/19 09:00 01/25/19 10:26 Lipitor PO Not Given DAILY [facility] Heparin Sodium (Porcine) 0 unit 01/24/19 14:01 Heparin IV Q6HR PRN Low PTT Protocol Metoprolol Succinate 50 mg 01/25/19 09:00 01/25/19 10:31 Toprol Xl PO 50 mg DAILY [facility] Administration Multivitamins 1 each 01/25/19 12:00 01/25/19 10:32 Theragran PO 1 each 1200 [facility] Administration Nitroglycerin 0.4 mg 01/24/19 14:01 Nitrostat SUBLINGUAL Q5M PRN Chest Pain Pantoprazole Sodium 40 mg 01/25/19 07:30 01/25/19 10:32 Protonix PO 40 mg [id number] SAMM Administration Phenobarbital 32.4 mg 01/24/19 21:00 01/25/19 10:31 Luminal PO 32.4 mg BID SAM[facility] Administration Intake and Output 01/24/19 01/25/19 01/25/19 22:59 06:59 14:59 Intake Total 60.421 52.958 Balance 60.421 52.958 Intake: Intake, IV Titration 60.421 52.958 Amount Heparin Sod,Pork in 0.45% 60.421 52.958 NaCl 25,000 unit In 0.45 % NaCl 1 250ml.bag @ 12 UNITS/KG/HR 8.165 mls/hr IV .Q24H [facility] Rx#: [id number] Other: Voiding Method Toilet Toilet # Voids 2 Weight 68.039 kg Patient Weight 01/26/19 06:59 Weight 68.039 kg 01/25/19 04:14 01/25/19 04:14
--- NOTE | 2019-01-25 13:56 | ECHOS ---
STRESS ECHOCARDIOGRAM INDICATIONS: Palpitations. BASELINE HEART RATE: 76 BASELINE BLOOD PRESSURE: 163/76 MAXIMUM HEART RATE: 132 MAXIMUM BLOOD PRESSURE: 197/83 85% MPHR: 125 100% MPHR: 147 MAXIMUM STAGE REACHED: 2 TOTAL EXERCISE TIME: 4:07 CLINICAL INFORMATION: Patient was exercised for a total period of 4 minutes. Peak heart rate of 132 was achieved. Maximum blood pressure of 197/83 mmHg was noted. Resting EKG shows normal sinus rhythm with normal WI interval and QRS duration and normal ST-T waves. No ST- segment depression suggestive of ischemia was noted. No dysrhythmias were noted. The baseline echocardiographic images reveals a normal left ventricular chamber size with normal left ventricular systolic function in the immediate postexercise period. Normal increase in the wall thickness and contractility is noted. FINAL IMPRESSION: This stress echocardiographic study is negative for stress-induced ischemia. EKG portion of the stress test is not suggestive of ischemia. Patient's exercise tolerance is average. MMODL / IJN: [id number] /
--- NOTE | 2019-01-25 15:34 | P.DS ---
Providers Date of admission: 01/24/19 14:01 Expected date of discharge: 01/25/19 Attending physician: Edward Bonner Consults: 01/24/19 14:01 Consult Physician Urgent Consulting Provider: Blanca Tinoco Consult Reason/Comments: cp Do you want consulting provider notified?: Yes Primary care physician: Christofer Oliver [facility] Course: Disharge diagnosis 1. Palpitations with tachycardia heart rate in the 140s on admission. Converted spontaneously back to a normal sinus rhythm. EKG normal sinus rhythm heart rate in the 70s. Stress echo completed showing negative for stress- induced ischemia. Per cardiology and acute coronary event has been ruled out 2- D echo has been ordered patient to have 30 day event monitor upon discharge. She to follow-up with cardiology services upon discharge 2. Chest discomfort with burning sensation. Monitor cardiac enzymes. Await cardiology evaluation. Last stress test 5 years ago reported normal. 3. Elevated lipase 404. Repeat lipase in a.m. Denies abdominal pain, denies any alcohol use. Abdominal ultrasound completed showing no distinct abnormality seen. Left kidney is surgically absent 4. History of kidney cancer with left nephrectomy 04/30/2016 5. History of seizure disorder continue the phenobarbital. Last seizure was in 1970s 6. Essential hypertension 7. Hypothyroidism. Patient started on Synthroid 25 mics. TSH level 4.90 free T4 0.75. Recommend 6 week follow-up 8. Hyperlipidemia. Patient declined statin due muscle aches in the past. Cardiology has explained the risks to patient 9. Urinary tract infection. Patient will be DC'd on oral antibiotics for 5 days Hospital course This is a 73-year-old female, patient of Dr. Oliver. She has a known past medical history of hypertension, hyperlipidemia, any cancer with a left nephrectomy, seizure disorder last seizure was in 1970s. Patient reports this morning she could feel palpitations on the left side of her chest she felt that her heart was pounding. Also having a burning sensation on the left side of her chest. She reports the symptoms were behind the left breast. She took her vitals at home she reports that her pulse was running between the 140s to 150s. She reports taking her metoprolol home and not skipping any dosages. She admits to feeling a little nauseated and fatigued. She denies any actual chest pain. She denies any vomiting, bowel movement changes or urinary symptoms. Denies any abdominal pain. Denies any cough fever chills or sweats. She denies any history of cardiac arrhythmias. Her last stress test was about 6 years ago and she reports that being normal. She denies any thyroid abnormality. Thyroid level will be checked. Magnesium is 2.2. Chest x-ray negative. EKG showing a normal sinus rhythm. She is currently on IV heparin. Her initial heart rate on admission was 148 is down to 76. Blood pressure was 176/112 and is now 165/81. Satting at 100% on 2 L. First troponin is negative. She does have a mildly elevated lipase of 404. Denies any alcohol history. Denies any history of pancreatitis. Denies any abdominal pain. Patient seen and examined in the ER On 01/25/2019 patient's alert and oriented 3. Patient expresses that she is very eager to go home. Patient denies chest pain or shortness of breath. Patient denies nausea vomiting or diarrhea. Patient denies any urinary burning or frequency. Patient did have stress test completed and was negative. Patient will be DC'd event 30 day monitor and follow up with cardiology services. Patient also be treated for urinary tract infection. Patient started on Synthroid for hypothyroidism. Patient to follow-up with her PCP for further management Lipase level ordered for 2 days I performed an examination of the patient and discussed their management with the Nurse Practitioner. I have reviewed the Nurse Practitioner's notes and agree with the documented findings and plan of care Patient Condition at Discharge: Stable Plan - Discharge Summary Discharge Rx Participant: No New Discharge Prescriptions: No Action Aspirin 81 mg PO DAILY PHENobarbital [Phenobarbital] 32.4 mg PO BID Multivitamins, Thera [Multivitamin (formulary)] 1 tab PO DAILY Metoprolol Succinate (ER) [Toprol Xl] 50 mg PO DAILY Acetaminophen [Tylenol] 650 mg PO Q4H PRN PRN Reason: Pain Discharge Medication List Aspirin 81 mg PO DAILY 11/20/14 [History] PHENobarbital [Phenobarbital] 32.4 mg PO BID 11/20/14 [History] Metoprolol Succinate (ER) [Toprol Xl] 50 mg PO DAILY 01/12/18 [History] Multivitamins, Thera [Multivitamin (formulary)] 1 tab PO DAILY 01/12/18 [History] Acetaminophen [Tylenol] 650 mg PO Q4H PRN 01/24/19 [History] Follow up Appointment(s)/Referral(s): Christofer Oliver MD [Primary Care Provider] - 1-2 days Marlyn Davila MD [STAFF PHYSICIAN] - 02/25/19 2:45 pm (FOR EVENT MONITOR TURN IN)
--- NOTE | 2019-01-25 19:48 | ECHOF ---
Referral Reason:cp palpitations MEASUREMENTS -------- HEIGHT: 162.6 cm WEIGHT: 68.0 kg BP: 158/71 RVIDd: 3.3 cm (< 3.3) IVSd: 1.2 cm (0.6 - 1.1) LVIDd: 3.2 cm (3.9 - 5.3) LVPWd: 1.0 cm (0.6 - 1.1) IVSs: 1.5 cm LVIDs: 2.1 cm LVPWs: 1.5 cm LA Diam: 2.9 cm (2.7 - 3.8) LAESV Index (A-L): 19.31 ml/m Ao Diam: 3.0 cm (2.0 - 3.7) AV Cusp: 1.7 cm (1.5 - 2.6) MV EXCURSION: 11.106 mm (> 18.000) MV EF SLOPE: 72 mm/s (70 - 150) EPSS: 0.2 cm MV E Kirt: 0.77 m/s MV DecT: 257 ms MV A Kirt: 0.71 m/s MV E/A Ratio: 1.08 AR PHT: 629 ms RAP: 5.00 mmHg RVSP: 30.86 mmHg FINDINGS -------- Sinus rhythm. This was a technically good study. The left ventricular size is normal. Left ventricular wall thickness is normal. Overall left vent ricular systolic function is normal with, an EF between 60 - 65 %. The right ventricle is mildly enlarged. Normal LA size by volume 22+/-6 ml/m2. The right atrium is normal in size. There is mild aortic valve sclerosis. There is mild aortic regurgitation. There is trace mitral regurgitation. Mild tricuspid regurgitation present. Right ventricular systolic pressure is normal at < 35 mmHg. Trace/mild (physiologic) pulmonic regurgitation. The aortic root size is normal. Normal inferior vena cava with normal inspiratory collapse consistent with estimated right atrial pre ssure of 5 mmHg. There is no pericardial effusion. CONCLUSIONS -------- 1. Sinus rhythm. 2. This was a technically good study. 3. The left ventricular size is normal. 4. Left ventricular wall thickness is normal. 5. Overall left ventricular systolic function is normal with, an EF between 60 - 65 %. 6. The right ventricle is mildly enlarged. 7. Normal LA size by volume 22+/-6 ml/m2. 8. The right atrium is normal in size. 9. There is mild aortic valve sclerosis. 10. There is mild aortic regurgitation. 11. There is trace mitral regurgitation. 12. Mild tricuspid regurgitation present. 13. Right ventricular systolic pressure is normal at < 35 mmHg. 14. Trace/mild (physiologic) pulmonic regurgitation. 15. The aortic root size is normal. 16. Normal inferior vena cava with normal inspiratory collapse consistent with estimated right atrial pressure of 5 mmHg. 17. There is no pericardial effusion. ASSISTANT ADMINISTRATOR: Aida Koroma RDCS
[2019-01-26] MEDS ORDERED: LEVOTHYROXINE 25 MCG TAB PO SCH (06:30)
== END 2019-01-25 16:06 | disposition home or self-care (01) ==
LOC: EC 12:49 → 1SOBS 14:01
PROVIDERS: ADMIT Internal Medicine; ATTEND Internal Medicine
DX: R07.89 Other chest pain (principal); R00.0 Tachycardia, unspecified; N39.0 Urinary tract infection, site not specified; E03.9 Hypothyroidism, unspecified; N18.3 Chronic kidney disease, stage 3 (moderate); I12.9 Hypertensive chronic kidney disease with stage 1 through stage 4 chronic kidney disease, or unspecified chronic kidney disease; G40.909 Epilepsy, unspecified, not intractable, without status epilepticus; R74.8 Abnormal levels of other serum enzymes; E78.5 Hyperlipidemia, unspecified; M19.90 Unspecified osteoarthritis, unspecified site; K44.9 Diaphragmatic hernia without obstruction or gangrene; I83.90 Asymptomatic varicose veins of unspecified lower extremity; E78.00 Pure hypercholesterolemia, unspecified; Z79.82 Long term (current) use of aspirin; Z79.899 Other long term (current) drug therapy; Z88.0 Allergy status to penicillin; Z88.4 Allergy status to anesthetic agent; Z88.1 Allergy status to other antibiotic agents; Z88.2 Allergy status to sulfonamides; Z88.7 Allergy status to serum and vaccine; Z88.8 Allergy status to other drugs, medicaments and biological substances; Z85.528 Personal history of other malignant neoplasm of kidney; Z90.710 Acquired absence of both cervix and uterus; Z87.891 Personal history of nicotine dependence; Z98.42 Cataract extraction status, left eye; Z90.5 Acquired absence of kidney; Z82.49 Family history of ischemic heart disease and other diseases of the circulatory system; Z80.41 Family history of malignant neoplasm of ovary; Z80.0 Family history of malignant neoplasm of digestive organs
CPT/HCPCS: 96366 ×3; 96376; 96361; 96365; 99285; 36415; 93005; 93306; 93270; 93351; 84439; 83880; 80061; 80053 ×2; 84443; 83690 ×2; 83735 ×2; 84484 ×2; 85025 ×2; 85610; 85730 ×2; 81001; 87086; 87077; 87186; 71046; 76700; G0378 ×2; J1644 ×2

== ENCOUNTER → 2019-01-27 | Outpatient (CLI) | payer MEDICARE, BC | LOC: LABWHC1 12:31 | PROVIDERS: ATTEND Nurse Practitioner | DX: R74.8 Abnormal levels of other serum enzymes (principal) | CPT/HCPCS: 36415; 83690 ==

== ENCOUNTER → 2019-05-19 | Outpatient (CLI) | payer MEDICARE, BC ==
[2019-05-19 19:03] LABS: African American GFR (CKD) 57.7 (60.0-200.0); Albumin 4.5 g/dL (3.80-4.90); Albumin/Globulin Ratio 1.8 (1.60-3.17); Anion Gap 7.9 mmol/L (4.00-12.00); BUN/Creat Ratio 16.36 Ratio (12.00-20.00); Calcium 9.5 mg/dL (8.7-10.3); Carbon Dioxide 28.1 mmol/L (21.6-31.8); Globulin 2.5 g/dL (1.6-3.3); Non-African American GFR(CKD) 49.8 (60.0-200.0); Potassium 4.9 mmol/L (3.5-5.5); Total Bilirubin 0.3 mg/dL (0.2-1.2)
== END | disposition home or self-care (01) ==
LOC: LABWHC1 12:29
PROVIDERS: ATTEND Urology
DX: C64.2 Malignant neoplasm of left kidney, except renal pelvis (principal)
CPT/HCPCS: 36415; 80053

== ENCOUNTER → 2019-05-25 | Outpatient (CLI) | payer MEDICARE, BC ==
--- NOTE | 2019-05-25 13:52 | XR ---
EXAMINATION TYPE: XR chest 2V DATE OF EXAM: 05/25/2019 COMPARISON: 01/24/2019 HISTORY: Renal cell carcinoma TECHNIQUE: Frontal and lateral views of the chest are obtained. FINDINGS: There is no focal air space opacity, pleural effusion, or pneumothorax seen. Bandlike scar ring is seen at the left lung base in the retrocardiac airspace. Pulmonary hyperinflation and biapica l lucency represent underlying COPD. The cardiac silhouette size is within normal limits. The osseo us structures are intact. Diffuse osseous demineralization is seen with mild multilevel degenerative changes of the spine. Surgical clips in the left mid abdomen are likely from prior nephrectomy. IMPRESSION: 1. No acute cardiac pulmonary process. 2. Linear family pleural parenchymal scarring of the left lung base. 3. Sequela of COPD.
--- NOTE | 2019-05-25 17:50 | CT ---
EXAMINATION TYPE: CT abdomen wo con DATE OF EXAM: 05/25/2019 COMPARISON: 04/26/2018 INDICATION: Follow up to renal CA, recent RUQ pain DLP: 292.6 mGycm, Automated exposure control for dose reduction was used. CONTRAST: 0 mL of Isovue 300. Study performed with Oral Contrast TECHNIQUE: Axial images were obtained from above the diaphragm to the iliac crests in the axial plane at 5 mm thick sections. Reconstructed images are reviewed on the computer in the coronal plane. FINDINGS: Limited CT sections are obtained the lung bases. The lung bases are clear. CT ABDOMEN: Liver: Normal Spleen: Normal Pancreas: Normal Adrenal glands: The adrenal glands are normal. Gallbladder: Normal Right Kidney: No masses are evident. No hydronephrosis is present. No cysts are present. Several n onobstructing renal stones are present measuring 0.3, 0.3, 0.2 cm in size. Left kidney is surgically absent. Aorta: Vascular calcification is within the aorta. Inferior vena cava: Normal. IMPRESSIONS: 1. Stable punctate nonobstructing renal stones right kidney. 2. Status post left nephrectomy. No suspicious changes in the left renal bed are evident.
== END | disposition home or self-care (01) ==
LOC: RADCTMAIN 12:35
PROVIDERS: ATTEND Urology
DX: J44.9 Chronic obstructive pulmonary disease, unspecified (principal); N20.0 Calculus of kidney; C64.2 Malignant neoplasm of left kidney, except renal pelvis; Z90.5 Acquired absence of kidney; Z88.8 Allergy status to other drugs, medicaments and biological substances; Z88.0 Allergy status to penicillin; Z88.1 Allergy status to other antibiotic agents
CPT/HCPCS: 71046; 74150

== ENCOUNTER → 2019-06-13 | Outpatient (CLI) | payer MEDICARE, BC ==
--- NOTE | 2019-06-13 16:11 | US ---
EXAMINATION TYPE: US venous doppler duplex LE RT DATE OF EXAM: 06/13/2019 3:58 PM COMPARISON: NONE CLINICAL HISTORY: M79.661 pain in rt. lower limb. Pain SIDE PERFORMED: Right TECHNIQUE: The lower extremity deep venous system is examined utilizing real time linear array sonog jose with graded compression, doppler sonography and color-flow sonography. VESSELS IMAGED: External Iliac Vein (EIV) Common Femoral Vein Deep Femoral Vein Greater Saphenous Vein * Femoral Vein Popliteal Vein Small Saphenous Vein * Proximal Calf Veins (* superficial vessels) Right Leg: Negative for DVT No evidence of DVT right leg. IMPRESSION: 1. Right lower extremity ultrasound negative for deep venous thrombosis.
[2019-06-13 17:02] LABS: T4, Free (Free Thyroxine) 0.75 ng/dL (0.78-2.19)
== END | disposition home or self-care (01) ==
LOC: RADUSWWP 15:22
PROVIDERS: ATTEND Internal Medicine
DX: M79.661 Pain in right lower leg (principal); E03.9 Hypothyroidism, unspecified
CPT/HCPCS: 36415; 84439; 84443; 84481

== ENCOUNTER → 2019-07-13 | Outpatient (CLI) | payer MEDICARE, BC ==
--- NOTE | 2019-07-15 13:35 | MM ---
Reason for exam: screening (asymptomatic). Last mammogram was performed 1 year and 2 months ago. History: Patient is postmenopausal and has history of other cancer at age 70. Implant Removal of both breasts, 1998. Took estrogen for 1 year beginning at age 50. Physical Findings: A clinical breast exam by your physician is recommended on an annual basis and results should be correlated with mammographic findings. MG 3D Screening Mammo W/Cad Bilateral CC and MLO view(s) were taken. Prior study comparison: May 18, 2018, bilateral MG 3d screening mammo w/cad. September 22, 2016, bilateral MG 3d screening mammo w/cad. The breast tissue is heterogeneously dense. This may lower the sensitivity of mammography. No significant changes when compared with prior studies. ASSESSMENT: Benign, BI-RAD 2 RECOMMENDATION: Routine screening mammogram of both breasts in 1 year.
== END | disposition home or self-care (01) ==
LOC: RADMAMWWP 13:05
PROVIDERS: ATTEND Internal Medicine
DX: Z12.31 Encounter for screening mammogram for malignant neoplasm of breast (principal)
CPT/HCPCS: 77063; 77067

== ENCOUNTER → 2020-06-04 | Outpatient (CLI) | payer MEDICARE, BC ==
[2020-06-04 15:44] LABS: Albumin 4.1 g/dL (3.5-5.0); Calcium 9.4 mg/dL (8.4-10.2); Potassium 4.5 mmol/L (3.5-5.1); Total Bilirubin 0.2 mg/dL (0.2-1.3)
--- NOTE | 2020-06-04 19:35 | XR ---
EXAMINATION TYPE: XR chest 2V DATE OF EXAM: 06/04/2020 COMPARISON: 05/25/2019 HISTORY: 74-year-old female C64.2, 2016 left nephrectomy. TECHNIQUE: Frontal and lateral views FINDINGS: Heart normal size. Atherosclerotic arch calcifications. Hyperinflation with flattening of the hemidia phragms. No consolidation or pleural effusion seen. IMPRESSION: COPD without acute cardiopulmonary process.
== END | disposition home or self-care (01) ==
LOC: RADXRMAIN 13:43
PROVIDERS: ATTEND Urology
DX: J44.9 Chronic obstructive pulmonary disease, unspecified (principal); C64.2 Malignant neoplasm of left kidney, except renal pelvis
CPT/HCPCS: 71046; 80053

== ENCOUNTER → 2020-08-01 | Outpatient (CLI) | payer MEDICARE, BC ==
[2020-08-02 03:56] LABS: African American GFR (CKD) 63.8 (60.0-200.0); Non-African American GFR(CKD) 55.1 (60.0-200.0)
[2020-08-02 04:09] LABS: T4, Free (Free Thyroxine) 0.8 ng/dL (0.80-1.80)
== END | disposition home or self-care (01) ==
LOC: LABWHC1 13:34
PROVIDERS: ATTEND Internal Medicine
DX: R00.2 Palpitations (principal); R53.83 Other fatigue
CPT/HCPCS: 36415; 82565; 84439; 84443; 84481; 84520

== ENCOUNTER 2020-09-20 07:26 | Day surgery (SDC) | payer MEDICARE, BC ==
[2020-09-20 07:55] VITALS: TEMP 97
[2020-09-20] MEDS ORDERED: DEXAMETHASONE SOD PHOSPHATE 10 MG/ML 1 ML VIAL ONE (08:25)
[2020-09-20] MEDS ORDERED: IOPAMIDOL M200 10 ML VIAL ONE (08:25)
--- NOTE | 2020-09-20 08:41 | P.PCN ---
Date of Procedure: 09/20/20 Description of Procedure: PREOPERATIVE DIAGNOSIS: Lumbar radiculopathy POSTOPERATIVE DIAGNOSIS: Lumbar radiculopathy Attending physician: Beau Santana M.D. PROCEDURE 1. Transforaminal epidural steroid injection under fluoroscopic guidance L level, L5-S1side 2. Lumbar epidurogram ANESTHESIA: Local with 1% lidocaine 3 ml ; PROCEDURE INDICATION: The patient with low back pain and radiculopathy symptoms unresponsive to conservative treatment. Fluoroscopy was used for the procedure and fluoroscopic images were saved to the radiology portion of patient's chart. PROCEDURE DESCRIPTION / TECHNIQUE: The patient was seen and identified in the preoperative area. Risks, benefits, complications, and alternatives were discussed with the patient. The patient agreed to proceed with the procedure and signed the consent. IV was started, and vital signs were stable. Patient was taken to the OR and time out was completed. The patient was placed in the prone position on procedure table and a pillow was placed under the abdomen to reduce lumbar lordosis. The lumbosacral area was prepped and draped in the usual sterile fashion. Vital signs were closely monitored during the procedure. Conscious sedation was used. Using oblique fluoroscopy, the chin of the ``Anthony dog and the skin and de eper tissues just below was localized with 1% lidocaine. Subsequently, a 22- gauge 3.5-inch spinal needle was advanced under a tunneled view fluoroscopic guidance just underneath the chin of the ``Anthony dog . Under lateral fluoroscopy, the needle was then advanced to the posterior border of the foramen. After negative aspiration of CSF and blood and with no paresthesias, 1 mL of Isovue-200 contrast dye was injected under live fluoroscopy and there was no evidence of intravascular injection. The injectate solution consisting of 10 mg of dexamethasone with 1 mL of 1% lidocaine was then delivered. The needle was withdrawn intact. At the end of the procedure, skin was cleansed, and bandages were applied. COMPLICATIONS: None COMMENTS: DISPOSITION / PLANS: The patient was placed in a supine position and transferred to the recovery area in a stable condition for observation. There was no evidence of lower extremity motor or sensory deficit after the procedure. Patient was discharged from the recovery room after meeting discharge criteria. Home discharge instructions were given to the patient by the staff. The patient will follow up procedure in 2-4 weeks.
[2020-09-20 09:17] VITALS: BP 173/66; PULSE 79; RESP 18
--- NOTE | 2020-09-20 09:42 | FL ---
Fluoroscopy HISTORY: Pain 9 seconds fluoroscopy time supplied to the referring clinician. 1 intraoperative C-arm images docume nt the procedure. See dictated report from anesthesia.
== END 2020-09-20 09:25 | disposition home or self-care (01) ==
LOC: ORPAIN 07:26
PROVIDERS: ATTEND Anesthesiology
DX: M54.16 Radiculopathy, lumbar region (principal); Z88.0 Allergy status to penicillin; Z90.710 Acquired absence of both cervix and uterus
CPT/HCPCS: 64483; J1100; Q9966

== ENCOUNTER 2020-10-09 08:19 | Day surgery (SDC) | payer MEDICARE, BC ==
[2020-10-08 12:35] VITALS: BMI 26.2
[2020-10-09] MEDS ORDERED: IOPAMIDOL M200 10 ML VIAL ONE (08:47)
[2020-10-09] MEDS ORDERED: DEXAMETHASONE SOD PHOSPHATE 10 MG/ML 1 ML VIAL ONE (08:47)
[2020-10-09 08:48] VITALS: RESP 16; TEMP 97.6
--- NOTE | 2020-10-09 09:04 | P.PCN ---
Date of Procedure: 10/09/20 Description of Procedure: PREOPERATIVE DIAGNOSIS: Lumbar radiculopathy POSTOPERATIVE DIAGNOSIS: Lumbar radiculopathy PROCEDURE 1. Transforaminal epidural steroid injection under fluoroscopic guidance left L5-S1 2. Lumbar epidurogram IMAGING Fluoroscopy was used, images where saved to the medical record ANESTHESIA: Local with 1% lidocaine 5 ml PROCEDURE DESCRIPTION / TECHNIQUE: The patient was seen and identified in the preoperative area. Risks, benefits, complications, and alternatives were discussed with the patient. The patient agreed to proceed with the procedure and signed the consent, vital signs were stable prior to the procedure. Patient was taken to the OR and time out was completed. The patient was placed in the prone position on procedure table and a pillow was placed under the abdomen to reduce lumbar lordosis. The lumbosacral area was prepped and draped in the usual sterile fashion. Vital signs were closely monitored during the procedure. Conscious sedation was used. Using oblique fluoroscopy, the chin of the "Anthony dog" at the pedicle and the skin and deeper tissues just below was localized with 1% lidocaine. Subsequently, a 25-gauge 3.5-inch spinal needle was advanced under a tunneled view fluoroscopic guidance just underneath the chin of the "Anthony dog". Under lateral fluoroscopy, the needle was then advanced to the posterior border interforaminal space. After negative aspiration of CSF and blood and with no paresthesias, 1 mL of Omnipaque-240 contrast dye was injected excellent epidurogram. Subsequently, a solution totalling 2ml of dexamethasone and PFNS was injected after negative aspiration (total of 10mg of dexamethasone was used). The needle was removed intact. COMPLICATIONS: None DISPOSITION: The patient was placed in a supine position and transferred to the recovery area in a stable condition for observation. There was no evidence of lower extremity motor or sensory deficit after the procedure. Patient was discharged from the recovery room after meeting discharge criteria. Home discharge instructions were given to the patient by the staff. The patient was reexamined prior to discharge. I have asked the patient to follow-up in the clinic in 4 weeks. I've asked her to try and return to physical therapy if her pain is under better control.
[2020-10-09] MEDS ORDERED: LACTATED RINGERS 1,000 ML IV SCH (09:09)
[2020-10-09 09:19] VITALS: BP 166/73; PULSE 81
--- NOTE | 2020-10-09 09:49 | FL ---
Fluoroscopy HISTORY: Pain 4 seconds fluoroscopy time supplied to the referring clinician. 1 intraoperative C-arm images docume nt the procedure. See dictated report from anesthesia.
== END 2020-10-09 09:35 | disposition home or self-care (01) ==
LOC: ORPAIN 08:19
PROVIDERS: ATTEND Hospitalist
DX: M54.16 Radiculopathy, lumbar region (principal); Z90.710 Acquired absence of both cervix and uterus
CPT/HCPCS: 64483

== ENCOUNTER → 2020-11-05 | Outpatient (CLI) | payer MEDICARE, BC ==
[2020-11-05 11:06] VITALS: BP 133/71; PULSE 85; RESP 18; TEMP 98.2
--- NOTE | 2020-11-05 12:08 | P.PN ---
Progress Note - Text Progress Note Date: 11/05/20 75-year-old female presents for follow-up visit with chief complaint of low back pain and neck pain. Her initial 2 visits were lumbar epidural steroid injections the L5-S1 interspace. She notes 60-70% relief and improved ambulation. She still has residual pain in L5 nerve root distribution bilaterally. She has significant lumbar spinal stenosis and has classic neuro claudication symptoms. Her chief complaint today is pain in her cervical spine that radiates into her right shoulder and into her right wrist. She was initially having issues with range of motion of her cervical spine, particularly lateral rotation bilaterally. That has improved over the past few months. She is a patient of Dr. Page who suggested cervical epidural steroid injections versus facet joint injections of the cervical spine. Patient endorses some weakness with holding objects in her right hand, and bicep flexion. She denies any gait abnormalities or balance issues. VAS ranges from a 4-7 out of 10 in severity and cervical spine worse with activity and movement. She has difficulty mostly with her right side versus left. Patient's past social, medical, family, surgical history were reviewed from referral notes and unchanged. In addition to above, 13-point review of systems is also negative for chest pain, shortness of breath, changes in vision, changes in hearing, new onset weakness, abdominal pain, diarrhea, extreme fatigue, malaise, fever, skin changes, homicidal or suicidal ideation, or bowel or bladder incontinence. 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 Cervical Radiculopathy 2. Cervical spondylosis 3. Lumbar spondylosis 4. Lumbar radiculopathy I. Lumbar spinal stenosis Plan: 1. Explanation: Diagnoses, prognoses, and multiple treatment options including but not limited to physical therapy, interventional therapies, adjuvant medical therapies, narcotic medication therapies, and surgery were discussed with the patient and all questions were answered to the patient's satisfaction. 2. Opioid agreement: Not required 3. Counseling: Patient was counseled on exercises involving the cervical spine and range of motion. Specifically, the patient was instructed regarding the importance of smoking cessation, obesity, and exercise in the context of both chronic pain and overall health. 4. Procedures: Cervical epidural 5. Consultations: None 6. Investigations: None 7. Medications: None 8. Disposition: We'll schedule for cervical epidural steroid injection at C6- C7. Risks and benefits of the procedure were discussed in detail which include but are not limited to hematoma causing spinal cord compression, infection, and possible worsening pain PQRS measures: On separate sheet
== END | disposition home or self-care (01) ==
LOC: PNWHC3 10:51
PROVIDERS: ATTEND Anesthesiology
DX: M48.061 Spinal stenosis, lumbar region without neurogenic claudication (principal); M47.22 Other spondylosis with radiculopathy, cervical region; M47.26 Other spondylosis with radiculopathy, lumbar region
CPT/HCPCS: 99211

== ENCOUNTER 2020-11-20 07:20 | Day surgery (SDC) | payer MEDICARE, BC ==
[2020-11-16 15:58] VITALS: BMI 26.4
[2020-11-20 07:47] VITALS: RESP 16; TEMP 97
[2020-11-20] MEDS ORDERED: LACTATED RINGERS 1,000 ML IV ONE ×2 (07:53)
[2020-11-20] MEDS ORDERED: LIDOCAINE 1% (10MG/ML) FOR IV START INTRADERMA ONE (07:53)
[2020-11-20] MEDS ORDERED: fentaNYL (PF) 50 MCG/ML 2 ML AMP ONE (08:16)
[2020-11-20] MEDS ORDERED: IOPAMIDOL M200 10 ML VIAL ONE (08:16)
[2020-11-20] MEDS ORDERED: MIDAZOLAM 2 MG/2 ML VIAL ONE (08:16)
[2020-11-20] MEDS ORDERED: DEXAMETHASONE SOD PHOSPHATE 10 MG/ML 1 ML VIAL ONE (08:16)
--- NOTE | 2020-11-20 08:30 | P.PCN ---
Date of Procedure: 11/20/20 Description of Procedure: Diagnosis: Cervical radiculopathy Cervical degenerative disc disease POSTOPERATIVE DIAGNOSIS: Diagnoses: Cervical radiculopathy Cervical degenerative disc disease PROCEDURE Cervical Epidural steroid injection under fluoroscopic guidance at the C7-T1 interspace using right paramedian approach Cervical epidurogram ANESTHESIA: Local with 1% lidocaine 3 ml and IV sedation with Versed and fentanyl, sedation time 9 min Fluoroscopy was used for the procedure and images were saved in the radiology portion of the chart. EBL: Minimal PROCEDURE INDICATION: The patient presents with cervical radicular symptoms unresponsive to conservative treatment. This is the firstcervical epidural steroid injection. PROCEDURE DESCRIPTION / TECHNIQUE: The patient was seen and identified in the preoperative area. Risks, benefits, complications including but not limited to infections ,bleeding ,allergic reaction to the medications ,nerve damage and incomplete pain relief, and alternatives were discussed with the patient. The patient agreed to proceed with the procedure and signed the consent. IV was started, and vital signs were stable. Patient was taken to the OR and time out was completed. The patient was placed in the prone position on procedure table and a pillow was placed under the chest area. The cervical area was prepped and draped in the usual sterile fashion. Conscious sedation was used during the procedure to decrease patients anxiety. Vital signs was monitored during the entire procedure. Using anterior-posterior fluoroscopy, the C7-T1 interlaminar space was identified and the skin over this site was marked and then infiltrated with 1% lidocaine subcutaneously. Subsequently, a 20-gauge Tuohy epidural needle was inserted and advanced toward the epidural space using the loss of resistance technique and guided by AP and 50 oblique fluoroscopy. The correct needle position in the epidural space was verified. After negative aspiration for blood and CSF and in the absence of paresthesias, Isovue 200 2 mL's was injected under live fluoroscopy with good epidural spread. After negative aspiration, a 4 ml mixture containing 10 mg of dexamethasone, 3 mL of preservative free normal saline. Needle was withdrawn intact, skin was cleansed, and bandages were applied. COMPLICATIONS: None DISPOSITION / PLANS: The patient was placed in a supine position and transferred to the recovery area in a stable condition for observation. There was no e vidence of lower extremity motor or sensory deficit after the procedure. Patient was discharged from the recovery room after meeting discharge criteria. Home discharge instructions were given to the patient by the staff. The patient will follow up with Dr Evans. This is her third injection with steroid in the calendar year so we would like to prolong the 4th as long as possible..
[2020-11-20] MEDS ORDERED: IV FLUID CONTINUATION 600 ML IV ONE (08:39)
[2020-11-20 09:01] VITALS: BP 161/78; PULSE 75
--- NOTE | 2020-11-20 09:24 | FL ---
Fluoroscopy History: Cerv Epid Inj 11sec fluoro time,2 images scanned
== END 2020-11-20 09:17 | disposition home or self-care (01) ==
LOC: ORPAIN 07:20
PROVIDERS: ATTEND Anesthesiology
DX: M50.10 Cervical disc disorder with radiculopathy, unspecified cervical region (principal); Z88.0 Allergy status to penicillin; Z88.1 Allergy status to other antibiotic agents; Z88.8 Allergy status to other drugs, medicaments and biological substances
CPT/HCPCS: 62321; J2250; J1100; J3010; Q9966

== ENCOUNTER 2020-12-31 15:16 | Emergency (ER) | payer MEDICARE, BC ==
[2020-12-31] MEDS ORDERED: ALBUTEROL HFA INHALER INHALATION STA (16:03)
--- NOTE | 2020-12-31 16:17 | ED ---
General Adult HPI - General Chief complaint: Shortness of Breath Stated complaint: SOB,Sinus infection Time Seen by Provider: 12/31/20 15:20 Source: patient, RN notes reviewed, old records reviewed Mode of arrival: ambulatory Limitations: no limitations - History of Present Illness Initial comments: This is a 75-year-old female whose had recent exposure to cold. Patient states she's had symptoms for 6 days a cough and now the last day or 2 some shortness of breath. Patient states the shortness of breath is only noticeable last day or so Patient denies any fever. Patient denies any diarrhea but she states she does have some loose stools. Patient denies loss of taste or smell. Patient denies abdominal pain patient denies any headache patient denies numbness weakness. - Related Data Home Medications Medication Instructions Recorded Confirmed Aspirin 81 mg PO DAILY 11/20/14 12/31/20 PHENobarbital [Phenobarbital] 32.4 mg PO BID 11/20/14 12/31/20 Acetaminophen [Tylenol Arthritis] 1,300 mg PO HS 12/31/20 12/31/20 Acetaminophen [Tylenol Arthritis] 650 mg PO DAILY@1200 12/31/20 12/31/20 Acetaminophen [Tylenol Arthritis] 650 mg PO Q8H PRN 12/31/20 12/31/20 Azithromycin [Zithromax Z-pack (6 See Taper PO DIRECTED 12/31/20 12/31/20 tabs)] Budesonide/Formoterol Fumarate 2 puff INHALATION RT-BID 12/31/20 12/31/20 [Symbicort 160-4.5 Mcg Inhaler] Metoprolol Succinate [Toprol XL] 100 mg PO DAILY 12/31/20 12/31/20 Naproxen Sodium [Aleve] 220 mg PO DAILY 12/31/20 12/31/20 Previous Rx's Medication Instructions Recorded Dexamethasone [Decadron] 6 mg PO DAILY #9 tablet 12/31/20 Allergies Allergy/AdvReac Type Severity Reaction Status Date / Time benoxinate HCl [From Fluress] Allergy Unknown Verified 12/31/20 16:26 erythromycin base Allergy Wheezing Verified 12/31/20 16:26 fluorescein sodium Allergy Unknown Verified 12/31/20 16:26 [From Fluress] Influenza Virus Vaccines Allergy tremors,muscle Verified 12/31/20 16:26 weakness Penicillins Allergy TONGUE Verified 12/31/20 16:26 SWELLING phenytoin sodium Allergy HIGH FEVER Verified 12/31/20 16:26 [From Dilantin] phenytoin sodium extended Allergy HIGH FEVER Verified 12/31/20 16:26 [From Dilantin] Hmubqyk-Nfu-Qih Reductase AdvReac muscle pain Verified 12/31/20 16:26 Inhibitor Sulfa (Sulfonamide AdvReac Wheezing Verified 12/31/20 16:26 Antibiotics) Review of Systems ROS Statement: Those systems with pertinent positive or pertinent negative responses have been documented in the HPI. ROS Other: All systems not noted in ROS Statement are negative. Past Medical History Past Medical History: Cancer, COPD, Eye Disorder, Hyperlipidemia, Hypertension, Osteoarthritis (OA), Seizure Disorder Additional Past Medical History / Comment(s): two seizures in 1969's, varicose veins, hx left kidney mass R/T kidney renal cell cancer 2016. , Shoulder, neck and right wrist pain. History of Any Multi-Drug Resistant Organisms: None Reported Past Surgical History: Hysterectomy, Tonsillectomy Additional Past Surgical History / Comment(s): CYSTOCELE repair, VEIN STRIPPING, bilat cataract, Lt kidney removed, Pain procedure Past Anesthesia/Blood Transfusion Reactions: Motion Sickness, Postoperative Nausea & Vomiting (PONV) Additional Past Anesthesia/Blood Transfusion Reaction / Comment(s): HAD SEVERE TREMORS POST SPINAL ANESTHESIA Past Psychological History: No Psychological Hx Reported Smoking Status: Former smoker Past Alcohol Use History: None Reported Past Drug Use History: None Reported - Past Family History Mother Family Medical History: Coronary Artery Disease (CAD), Hypertension Additional Family Medical History / Comment(s): CABG Father Family Medical History: Cancer Additional Family Medical History / Comment(s): COLON Sister(s) Family Medical History: Cancer Additional Family Medical History / Comment(s): OVARIAN General Exam - General Exam Comments Initial Comments: GENERAL: Patient is well-developed and well-nourished. Patient is nontoxic and well-hyd rated and is in mild distress. ENT: Neck is soft and supple. No significant lymphadenopathy is noted. Oropharynx is clear. Moist mucous membranes. Neck has full range of motion without eliciting any pain. EYES: The sclera were anicteric and conjunctiva were pink and moist. Extraocular movements were intact and pupils were equal round and reactive to light. Eyelids were unremarkable. PULMONARY: Unlabored respirations. Good breath sounds bilaterally. Patient has expiratory wheezing with some crackles in the bilateral bases CARDIOVASCULAR: There is a regular rate and rhythm without any murmurs gallops or rubs. ABDOMEN: Soft and nontender with normal bowel sounds. SKIN: Skin is clear with no lesions or rashes and otherwise unremarkable. NEUROLOGIC: Patient is alert and oriented x3. Cranial nerves II through XII are grossly intact. Motor and sensory are also intact. Normal speech, volume and content. Symmetrical smile. . MUSCULOSKELETAL: Normal extremities with adequate strength and full range of motion. No lower extremity swelling or edema. No calf tenderness. LYMPHATICS: No significant lymphadenopathy is noted PSYCHIATRIC: Normal psychiatric evaluation. Limitations: no limitations Course Vital Signs 12/31/20 12/31/20 15:18 17:36 Temperature 98.5 F Pulse Rate 90 98 Respiratory 16 18 Rate Blood Pressure 135/66 152/72 O2 Sat by Pulse 93 L 93 L Oximetry Medical Decision Making - Medical Decision Making EKG shows normal sinus rhythm at 83 bpm TX interval is 148 QRS is 70 QT interval 362 QTC is 425. Patient's EKG shows no ST segment elevation or depression. Chest x-ray shows COVID Pneumonia. Patient elevated d-dimer. I did a CT chest to rule out PE patient had no pulmonary embolism but again showed COVID pneumonia. I patient was actually about 92% on room air sitting in a chair however she would drop down to about 88-89 if she walks and then when she sat down to come right back up to 92. Patient stated she did not want to stay overnight she wanted to go home and try the monoclonal antibodies and see if that helped. Patient understood the risks of going home and she understood she needs to come back immediately if her breathing gets any worse. Patient was given monoclonal antibodies. - Lab Data Result diagrams: 12/31/20 15:44 12/31/20 15:44 Lab Results 12/31/20 12/31/20 12/31/20 Range/Units 15:44 15:44 15:44 WBC 4.5 (3.8-10.6) k/uL RBC 4.48 (3.80-5.40) m/uL Hgb 12.1 (11.4-16.0) gm/dL Hct 37.8 (34.0-46.0) % MCV 84.2 (80.0-100.0) fL MCH 26.9 (25.0-35.0) pg MCHC 31.9 (31.0-37.0) g/dL RDW 14.0 (11.5-15.5) % Plt Count 240 (150-450) k/uL MPV 6.9 Neutrophils % 61 % Lymphocytes % 25 % Monocytes % 11 % Eosinophils % 0 % Basophils % 1 % Neutrophils # 2.8 (1.3-7.7) k/uL Lymphocytes # 1.1 (1.0-4.8) k/uL Monocytes # 0.5 (0-1.0) k/uL Eosinophils # 0.0 (0-0.7) k/uL Basophils # 0.0 (0-0.2) k/uL PT 9.9 (9.0-12.0) sec INR 0.9 (<1.2) APTT 27.3 (22.0-30.0) sec D-Dimer 1.38 H (<0.60) mg/L FEU Sodium 133 L (137-145) mmol/L Potassium 4.6 (3.5-5.1) mmol/L Chloride 101 (98-107) mmol/L Carbon Dioxide 22 (22-30) mmol/L Anion Gap 10 mmol/L BUN 16 (7-17) mg/dL Creatinine 0.94 (0.52-1.04) mg/dL Est GFR (CKD-EPI)AfAm 69 (>60 ml/min/1.73 sqM) Est GFR (CKD-EPI)NonAf 60 (>60 ml/min/1.73 sqM) Glucose 110 H (74-99) mg/dL Plasma Lactic Acid Joaquin (0.7-2.0) mmol/L Calcium 8.6 (8.4-10.2) mg/dL Magnesium 2.0 (1.6-2.3) mg/dL Total Bilirubin 0.3 (0.2-1.3) mg/dL AST 29 (14-36) U/L ALT 12 (4-34) U/L Alkaline Phosphatase 108 (38-126) U/L Lactate Dehydrogenase 641 H (313-618) U/L C-Reactive Protein 64.3 H (<10.0) mg/L Total Protein 7.1 (6.3-8.2) g/dL Albumin 4.0 (3.5-5.0) g/dL Coronavirus (PCR) (Not Detectd) 12/31/20 12/31/20 Range/Units 15:44 15:55 WBC (3.8-10.6) k/uL RBC (3.80-5.40) m/uL Hgb (11.4-16.0) gm/dL Hct (34.0-46.0) % MCV (80.0-100.0) fL MCH (25.0-35.0) pg MCHC (31.0-37.0) g/dL RDW (11.5-15.5) % Plt Count (150-450) k/uL MPV Neutrophils % % Lymphocytes % % Monocytes % % Eosinophils % % Basophils % % Neutrophils # (1.3-7.7) k/uL Lymphocytes # (1.0-4.8) k/uL Monocytes # (0-1.0) k/uL Eosinophils # (0-0.7) k/uL Basophils # (0-0.2) k/uL PT (9.0-12.0) sec INR (<1.2) APTT (22.0-30.0) sec D-Dimer (<0.60) mg/L FEU Sodium (137-145) mmol/L Potassium (3.5-5.1) mmol/L Chloride (98-107) mmol/L Carbon Dioxide (22-30) mmol/L Anion Gap mmol/L BUN (7-17) mg/dL Creatinine (0.52-1.04) mg/dL Est GFR (CKD-EPI)AfAm (>60 ml/min/1.73 sqM) Est GFR (CKD-EPI)NonAf (>60 ml/min/1.73 sqM) Glucose (74-99) mg/dL Plasma Lactic Acid Joaquin 1.3 (0.7-2.0) mmol/L Calcium (8.4-10.2) mg/dL Magnesium (1.6-2.3) mg/dL Total Bilirubin (0.2-1.3) mg/dL AST (14-36) U/L ALT (4-34) U/L Alkaline Phosphatase (38-126) U/L Lactate Dehydrogenase (313-618) U/L C-Reactive Protein (<10.0) mg/L Total Protein (6.3-8.2) g/dL Albumin (3.5-5.0) g/dL Coronavirus (PCR) Detected A (Not Detectd) Disposition Clinical Impression: Pneumonia due to COVID-19 virus Disposition: HOME SELF-CARE Instructions (If sedation given, give patient instructions): Coronavirus Disease 2019 (COVID-19) Prescriptions: Dexamethasone [Decadron] 6 mg PO DAILY #9 tablet Is patient prescribed a controlled substance at d/c from ED?: No Referrals: Christofer Oliver MD [Primary Care Provider] - 1-2 days Time of Disposition: 19:04
[2020-12-31 16:24] LABS: Basophils % (A) 1 %; Eosinophils % (A) 0 %; HCT 37.8 % (34.0-46.0); HGB 12.1 gm/dL (11.4-16.0); Lymphocytes # (A) 1.1 k/uL (1.0-4.8); Lymphocytes % (A) 25 %; MCH 26.9 pg (25.0-35.0); MCHC 31.9 g/dL (31.0-37.0); MCV 84.2 fL (80.0-100.0); Mean Platelet Volume 6.9; Monocytes # (A) 0.5 k/uL (0-1.0); Monocytes % (A) 11 %; Neutrophils # (A) 2.8 k/uL (1.3-7.7); Neutrophils % (A) 61 %; Platelet Count 240 k/uL (150-450); RBC 4.48 m/uL (3.80-5.40); WBC 4.5 k/uL (3.8-10.6)
--- NOTE | 2020-12-31 16:31 | XR ---
EXAMINATION TYPE: XR chest 1V portable DATE OF EXAM: 12/31/2020 COMPARISON: Chest x-ray June 04, 2020 HISTORY: Cough. TECHNIQUE: Single frontal view of the chest is obtained. FINDINGS: There is chronic parenchymal changes bilaterally with patchy mid to lower lung opacities o n current study. No pleural effusion or pneumothorax seen bilaterally. The cardiac silhouette size re alma within normal limits. The osseous structures are intact. IMPRESSION: New patchy mid to lower lung bilateral acute opacities worrisome for covid-19 infection on background chronic parenchymal changes.
[2020-12-31 16:36] LABS: C Reactive Protein 64.3 mg/L (<10.0); Calcium 8.6 mg/dL (8.4-10.2); Potassium 4.6 mmol/L (3.5-5.1); Total Bilirubin 0.3 mg/dL (0.2-1.3); Total Protein 7.1 g/dL (6.3-8.2)
[2020-12-31 16:43] LABS: INR 0.9 (<1.2); Partial Thromboplastin Time 27.3 sec (22.0-30.0); Prothrombin Time 9.9 sec (9.0-12.0)
[2020-12-31 16:58] LABS: D-Dimer 1.38 mg/L FEU (<0.60)
[2020-12-31 17:36] VITALS: RESP 18
--- NOTE | 2020-12-31 18:00 | CT ---
EXAMINATION TYPE: CT chest angio for PE DATE OF EXAM: 12/31/2020 COMPARISON: None HISTORY: Elevated d-dimer, +covid, shortness of breath. CT DLP: 253 mGycm Automated exposure control for dose reduction was used. CONTRAST: Performed with IV Contrast, patient injected with 100 mL of Isovue 370. There are 3-D post processed images. There is patchy reticular pulmonary infiltrates throughout both lungs. There is some coalescent 2 cm density in the posterior right lower lobe. There is no pleural effusion. Heart size is normal. There are no hilar masses. There are right bronchial lymph nodes measuring less than 1 cm. There is no boris cardial effusion. Thoracic aorta is intact. There is no aneurysm or dissection. There is no mediastin al adenopathy. I see no evidence of filling defect in the pulmonary arteries. Thoracic spine is intact. Sternum is intact. The ribs appear intact. IMPRESSION: No evidence of pulmonary embolism. Patchy reticular nodular pulmonary infiltrates scattered in both l ungs more likely related to inflammatory or infectious disease. Normal heart.
[2020-12-31] MEDS ORDERED: dexAMETHasone 2 MG TAB PO STA (18:54)
[2020-12-31] MEDS ORDERED: BAMLANIVIMAB 700 MG in SODIUM CHLORIDE 0.9% 50 ML IVPB ONE (19:45)
[2020-12-31 21:42] VITALS: BP 134/79; PULSE 82; TEMP 98.9
[2021-01-01 01:15] LABS: Ferritin 111.7 ng/mL (10.0-291.0)
== END 2020-12-31 21:42 | disposition home or self-care (01) ==
LOC: EC 15:16
DX: U07.1 COVID-19 (principal); J12.82 Pneumonia due to coronavirus disease 2019; I10 Essential (primary) hypertension; J44.0 Chronic obstructive pulmonary disease with (acute) lower respiratory infection; M19.90 Unspecified osteoarthritis, unspecified site; Z79.51 Long term (current) use of inhaled steroids; Z79.82 Long term (current) use of aspirin; Z79.899 Other long term (current) drug therapy; Z85.528 Personal history of other malignant neoplasm of kidney; Z87.891 Personal history of nicotine dependence; Z88.0 Allergy status to penicillin
CPT/HCPCS: 36415; 94640; 93005; 85379; 80053; 82728; 83605; 83615; 83735; 85025; 85610; 85730; 86140; 87040; 84145; 87635; 71045; 71275; 99285; 96374; J8540; Q9967; Q0239

== ENCOUNTER → 2021-03-29 | Outpatient (CLI) | payer MEDICARE, BC ==
--- NOTE | 2021-04-03 13:40 | MM ---
Reason for exam: screening (asymptomatic). Last mammogram was performed 1 year and 9 months ago. History: Patient is postmenopausal and has history of other cancer at age 70. Implant Removal of both breasts, 1998. Took estrogen for 1 year beginning at age 50. Physical Findings: A clinical breast exam by your physician is recommended on an annual basis and results should be correlated with mammographic findings. MG 3D Screening Mammo W/Cad Bilateral CC and MLO view(s) were taken. Prior study comparison: July 13, 2019, bilateral MG 3d screening mammo w/cad. May 18, 2018, bilateral MG 3d screening mammo w/cad. There are scattered fibroglandular densities. There are increasing benign appearing vascular calcifications bilaterally. There is no discrete abnormality. ASSESSMENT: Benign, BI-RAD 2 RECOMMENDATION: Routine screening mammogram of both breasts in 1 year.
== END | disposition home or self-care (01) ==
LOC: RADMAMWWP 13:33
PROVIDERS: ATTEND Internal Medicine
DX: Z12.31 Encounter for screening mammogram for malignant neoplasm of breast (principal); Z78.0 Asymptomatic menopausal state
CPT/HCPCS: 77063; 77067

== ENCOUNTER → 2021-05-29 | Outpatient (CLI) | payer MEDICARE, BC ==
--- NOTE | 2021-05-29 15:48 | XR ---
EXAMINATION TYPE: XR chest 2V DATE OF EXAM: 05/29/2021 COMPARISON: 12/31/2020 INDICATION: Renal cell cancer TECHNIQUE: Single frontal view of the chest is obtained. FINDINGS: The heart size is normal. The pulmonary vasculature is normal. Minimal linear opacities in the periphery of the right mid lung likely related to scarring present p reviously. No suspicious focal consolidation. Osseous structures are intact. IMPRESSION: 1. Suspected scarring right midlung periphery. 2. No suspicious changes to suggest metastasis.
--- NOTE | 2021-05-29 16:27 | CT ---
EXAMINATION TYPE: CT abdomen wo con DATE OF EXAM: 05/29/2021 COMPARISON: CT 05/25/2019 HISTORY: f/u renal ca CT DLP: 283.5 mGycm Automated exposure control for dose reduction was used. TECHNIQUE: Helical acquisition of images was performed from the lung bases through the top of iliac crest to include entire abdomen. CONTRAST: Performed with Oral Contrast and without IV contrast. FINDINGS: Lack of contrast could compromise sensitivity. There is a small hiatal hernia present. LUNG BASES: Bandlike areas of increased attenuation at the lung bases may reflect scarring. LIVER/GB: No significant interval change is appreciated, patient is post cholecystectomy. PANCREAS: No significant abnormality is seen. SPLEEN: No significant abnormality is seen. ADRENALS: No significant interval change is seen. KIDNEYS: Patient is post left nephrectomy. Calcifications are again noted within the right kidney whi ch may be vascular. No hydronephrosis. BOWEL: No significant abnormality is seen. Metallic clips are present at the right lower quadrant LYMPH NODES: No significant abnormality is appreciated. OSSEOUS STRUCTURES: No significant abnormality is seen. FREE AIR: No Free Air visible ASCITES: None visible. RETROPERITONEAL ADENOPATHY: No Retroperitoneal Adenopathy visible. OTHER: IMPRESSION: POSTOP CHANGES. NONCONTRAST EXAM.1
== END | disposition home or self-care (01) ==
LOC: RADCTMAIN 12:25
PROVIDERS: ATTEND Urology
DX: C64.2 Malignant neoplasm of left kidney, except renal pelvis (principal)
CPT/HCPCS: 71046; 74150

== ENCOUNTER → 2021-05-30 | Outpatient (CLI) | payer MEDICARE, BC ==
[2021-05-31 15:49] LABS: African American GFR (CKD) 56.9 (60.0-200.0); Albumin 4.4 g/dL (3.80-4.90); Albumin/Globulin Ratio 1.52 (1.60-3.17); Anion Gap 5.1 mmol/L (4.00-12.00); BUN/Creat Ratio 13.64 Ratio (12.00-20.00); Calcium 9.1 mg/dL (8.7-10.3); Carbon Dioxide 28.9 mmol/L (21.6-31.8); Globulin 2.9 g/dL (1.6-3.3); Non-African American GFR(CKD) 49.1 (60.0-200.0); Potassium 4.6 mmol/L (3.5-5.5); Total Bilirubin 0.3 mg/dL (0.2-1.2); Total Protein 7.3 g/dL (6.2-8.2)
== END | disposition home or self-care (01) ==
LOC: LABWHC1 13:29
PROVIDERS: ATTEND Urology
DX: C64.2 Malignant neoplasm of left kidney, except renal pelvis (principal)
CPT/HCPCS: 36415; 80053

== ENCOUNTER → 2021-10-14 | Outpatient (CLI) | payer MEDICARE, BC ==
[2021-10-14 12:55] VITALS: BP 177/77; PULSE 77; RESP 18; TEMP 97.8
--- NOTE | 2021-10-14 13:04 | P.PN ---
Subjective Progress Note Date: 10/14/21 This is follow-up visit for this 76 years old female with a chronic history of severe low back pain and neck pain, previously we have done cervical epidural steroid injection which helped her neck pain tremendously, and before that we have done lumbar transforaminal epidural steroid injection which helped her low back pain significantly, patient did very well until recently when she started having severe low back pain, which is radiated to the left buttock area, not radiated below the knee, denies any motor or sensory deficit she denies any fever or night sweats she denies any change in the bowel movement or urination, pain is constant and increases with any activity, interfere with the quality of life, interfere with activity of daily livings, denies any initiating event, patient continued to use pain medication Aleve and Tylenol and she uses heat therapy and she is already done physical therapy and chiropractics Objective - Vital Signs Vital signs: Vital Signs Temp 97.8 F 10/14/21 12:45 Pulse 77 10/14/21 12:45 Resp 18 10/14/21 12:45 BP 177/77 10/14/21 12:45 Pulse Ox 95 10/14/21 12:45 - Exam Physical Examinations : -Constitutiona : Cooperative , not in acute distress . -HEENT : nech : supple , no Lymphadenopathy , normal thyroid size . : eyes : no ptosis , no icterus, no photophobia . - neurologic : Cranial nerve II to XII intact , no focal neurological deffecit . -psychatric : alert , oriented X 3 , appropriate affect , intact judgment and insight . -Lymphatic : no Lymphadenopathy . - musculoskeltal : Lumber spine moter stegnth lower extremities ,thigh and legs 5/5 Right side , 5/5 Left side deep tendon reflexes : normal Knee Jerk , normal ankle Jerk lumber facet Loading Test =positive Right , positive Left Range of motion of the lumbar spine Flexion 30 degrees, extension 10 degrees strait leg raising test = negative bilaterally Fabere test= negative bilaterally. Sever tenderness over the Sacroiliac joint on the Left sides Gaenslen test= positive left . Seated flexion test= positive Left . Distraction test= positive left side Sacroiliac compression test= positive left side. Tenderness over the trochanteric bursa bilaterally MRI of the lumbar spine multilevel lumbar bulging disc disease multilevel lumbar foraminal stenosis and multi lumen lumbar facet arthropathy Assessment and Plan Plan: Assessment and plan= 1-left sacroiliitis. 2-Lumbar foraminal stenosis. 3-lumbar spondylosis with lumbar facet arthropathy. 4-trechonteric bursitis Clinically most of the pain is coming from the left sacroiliac joint component, and could benefit from left sacroiliac joint steroid injections under fluoroscopy guidance - PQRS measures = - Patient's medications are documented in the chart. -Tobacco use is negative and counseling.Given. -Patient's has not received pneumococcal vaccine. -Advanced care planning discussed, patient not eligible. -Opiate contract not signed. -Pain positive and follow-up visit/procedure is scheduled. -Patient's blood pressure measured [ 170/77 ] , and documented in the record ,and patient will follow up with the primary care. -Patient's weight was measured and body mass index [ 26.8 ] above the normal limits and counseling was done. and patient instructed to follow-up with the primary care physician. -Patient was not identified as an unhealthy alcohol user Time with Patient: Less than 30
== END | disposition home or self-care (01) ==
LOC: PNWHC3 12:01
PROVIDERS: ATTEND Specialist
DX: M48.061 Spinal stenosis, lumbar region without neurogenic claudication (principal); M47.816 Spondylosis without myelopathy or radiculopathy, lumbar region; M46.96 Unspecified inflammatory spondylopathy, lumbar region
CPT/HCPCS: 99211

== ENCOUNTER 2021-11-07 12:27 | Day surgery (SDC) | payer MEDICARE, BC ==
[2021-11-01 15:22] VITALS: BMI 26.9
[~2021-11-07 12:27] MED LIST changes: -BUPIVACAINE (PF) 0.25% 30 ML VIAL SQ ONE; -CLINDAMYCIN 900 MG in DEXTROSE 5% IN WATER 50 ML IVPB ONE; -DEXAMETHASONE SOD PHOSPHATE 10 MG/ML 1 ML VIAL IV ONE; -HYDROcodone/APAP 5-325MG 1 EACH TAB PO ONE; -HYDROmorphone 0.5 MG/0.5 ML SYRINGE IVP PRN; -LIDOCAINE 1% 20 ML VIAL (10MG/ML) FOR IV START INTRADERMA PRN; -LIDOCAINE 1% INJ 10MG/ML (20 ML MDV) ONE; -MIDAZOLAM 2 MG/2 ML VIAL IV PRN; -MIDAZOLAM 2 MG/2 ML VIAL ONE; -MORPHINE SULFATE 2 MG/ML SYRINGE IV PRN; -ONDANSETRON 4 MG/2 ML VIAL IVP ONE; -PROPOFOL 10 MG/ML 20 ML VIAL IV ONE; -SCOPOLAMINE 1.5MG/72HR PATCH TRANSDERM ONE; -SUCCINYLCHOLINE CHLORIDE 100 MG/5 ML SYR IV ONE; -fentaNYL (PF) 50 MCG/ML 2 ML AMP IV PRN; -fentaNYL (PF) 50 MCG/ML 2 ML AMP ONE
[2021-11-07 13:41] VITALS: TEMP 97.5
[2021-11-07] MEDS ORDERED: ROPIVACAINE 5MG/ML 20ML VIAL ONE (14:05)
[2021-11-07] MEDS ORDERED: methylPREDNISolone ACETATE 40 MG/ML 1 ML VIAL ONE (14:05)
--- NOTE | 2021-11-07 14:19 | P.PCN ---
Date of Procedure: 11/07/21 Procedure(s) Performed: Procedure= Left sacroiliac joints steroid injection under fluoroscopy guidance (fluoroscopy image stored on file in the radiology Department ) Preoperative diagnosis= 1-sacroiliitis 2-lumbar foraminal stenosis 3-lumbar spondylosis with facet arthropathy Postoperative diagnosis=Same as preop Diagnosis . Complication = none Condition= stable Anesthesia= ropivaciane 0.5% 3 mL . Indication for the procedure= patient complaining of low back pain , examination was positive for severe tenderness over the left sacroiliac joints , and patient diagnosed with sacroiliitis, for this reason she was good candidate for sacroiliac joint steroid injection. Description of the procedure= procedure risk and benefits discussed with the patient, including but not limited, risk of infection and bleeding, and ALLERGIC reaction to the medication and not complete pain relief and patient agreed with the preceding patient taken to the operating room, placed in prone position or standard monitors applied to the patient then after induction of anesthesia back prepped with chlorhexidine 3 times ,. Then the left sacroiliac joint steroid injection done under strict sterile technique local infiltration of the skin and subcu interstitial at the location of the left sacroiliac joint then a 22-gauge Quincke Needle advanced slowly under fluoroscopy time placed in the left sacroiliac joint, needle placement confirmed with AP and oblique and lateral view then after appropriate needle pl acement confirmed and after negative aspiration 0.5% Ropivacaine 4 mL and 40 mg of Depo-Medrol injected in the left sacroiliac joint after negative aspiration patient tolerated the procedure well that any complications and she will follow up in clinic 3 weeks
[2021-11-07] MEDS ORDERED: IV FLUID CONTINUATION 1,000 ML IV ONE (14:21)
[2021-11-07 14:28] VITALS: PULSE 76; RESP 16
[2021-11-07 14:38] VITALS: BP 153/76
--- NOTE | 2021-11-07 14:40 | FL ---
Fluoroscopy HISTORY: Pain 7 seconds fluoroscopy time supplied to the referring clinician. 2 intraoperative C-arm images docume nt the procedure. See dictated report from anesthesia.
== END 2021-11-07 15:13 | disposition home or self-care (01) ==
LOC: ORPAIN 12:27
PROVIDERS: ATTEND Specialist
DX: M46.1 Sacroiliitis, not elsewhere classified (principal); M47.816 Spondylosis without myelopathy or radiculopathy, lumbar region; M54.16 Radiculopathy, lumbar region; M48.061 Spinal stenosis, lumbar region without neurogenic claudication
CPT/HCPCS: G0260; J1030; J2795; 27096

== ENCOUNTER 2021-12-12 07:36 | Day surgery (SDC) | payer MEDICARE, BC ==
[2021-12-11 11:22] VITALS: BMI 27.1
[~2021-12-12 07:36] MED LIST changes: +LIDOCAINE 1% (10MG/ML) FOR IV START INTRADERMA PRN
[2021-12-12 07:59] VITALS: TEMP 97.6
[2021-12-12 08:12] LABS: Glucose,Whole Blood 78 mg/dL (75-99)
[2021-12-12] MEDS ORDERED: methylPREDNISolone ACETATE 40 MG/ML 1 ML VIAL ONE (08:22)
[2021-12-12] MEDS ORDERED: MIDAZOLAM 2 MG/2 ML VIAL ONE (08:22)
[2021-12-12] MEDS ORDERED: ROPIVACAINE 5MG/ML 20ML VIAL ONE (08:22)
[2021-12-12] MEDS ORDERED: fentaNYL (PF) 50 MCG/ML 2 ML AMP ONE (08:22)
--- NOTE | 2021-12-12 08:40 | P.PCN ---
Date of Procedure: 12/12/21 Procedure(s) Performed: Procedure= Left sacroiliac joints steroid injection under fluoroscopy guidance (fluoroscopy image stored on file in the radiology Department ) Preoperative diagnosis= 1-sacroiliitis 2-lumbar degenerative disc disease 3- lumbar facet arthropathy Postoperative diagnosis=Same as preop Diagnosis . Complication = none Condition= stable Anesthesia= moderate sedation with intravenous Versed 1 mg , and fentanyl 50 micrograms . Indication for the procedure= patient complaining of low back pain , examination was positive for severe tenderness over the left sacroiliac joints and patient diagnosed with sacroiliitis, for this reason she was good candidate for sacroiliac joint steroid injection. Description of the procedure= procedure risk and benefits discussed with the patient, including but not limited, risk of infection and bleeding, and ALLERGIC reaction to the medication and not complete pain relief and patient agreed with the preceding patient taken to the operating room, placed in prone position or standard monitors applied to the patient then after induction of anesthesia back prepped with chlorhexidine 3 times , Then under strict sterile technique, I did the Left sacroiliac joint the which was identified under fluoroscopy guidance been local infiltration of the skin and subcu interstitial with lidocaine 1% then 22-gauge Quincke Needle advanced slowly under fluoroscopy and placed in the Left sacroiliac joint needle placement confirmed with AP and oblique and lateral view and after appropriate needle placement confirmed and after negative aspiration, or heme , then Ropivacaine 0.5% 4 mL, and 40 mg of Depo-Medrol mixed together and injected in the right sacroiliac joint after negative aspiration patient tolerated the procedure well without any complication.
[2021-12-12] MEDS ORDERED: IV FLUID CONTINUATION 700 ML IV ONE (08:48)
[2021-12-12 08:50] VITALS: RESP 18
[2021-12-12 09:32] VITALS: BP 161/85; PULSE 73
--- NOTE | 2021-12-12 10:06 | FL ---
Fluoroscopy HISTORY: Pain 3 seconds fluoroscopy time supplied to the referring clinician. 1 intraoperative C-arm images docume nt the procedure. See dictated report from anesthesia.
== END 2021-12-12 09:35 | disposition home or self-care (01) ==
LOC: ORPAIN 07:36
PROVIDERS: ATTEND Specialist
DX: M46.1 Sacroiliitis, not elsewhere classified (principal); M51.36 Other intervertebral disc degeneration, lumbar region; M47.816 Spondylosis without myelopathy or radiculopathy, lumbar region
CPT/HCPCS: J2250; J1030; J3010; J2795; G0260; 27096

== ENCOUNTER → 2022-01-02 | Outpatient (CLI) | payer MEDICARE, BC ==
[2022-01-02 11:59] VITALS: BP 156/69; PULSE 69; RESP 16; TEMP 98
--- NOTE | 2022-01-02 12:16 | P.PN ---
Subjective Progress Note Date: 01/02/22 Principal diagnosis: A 76 yr old female with a history of severe and chronic low back pain secondary to lumbar degenerative disc diseases and lumbar spondylosis with facet arthropathy presents today for evaluation status post left SI joint injection #2. She states she experienced 90% pain relief for several weeks and is also currently 90% pain free. She admits she is able to lift laundry baskets, twist, bend, do dishes without intractable pain. Pain level is 1 out of 10 in intensity, dull in character in the left aspect of the lower lumbar spine where it meets the sacrum without radiation of pain. Pain is provoked by bending and lifting. Pain is alleviated with medications, injections, heat, physical therapy in the past, chiropractic treatments which were helpful in the past, home stretching regimen, heating pad use and rest. Interventional pain procedures completed include L SI joint injection #2 Patient is currently on Tylenol OTC Patient denies any side effects of the medication(s), denies excessive drowsiness or sleepiness, denies suicidal ideation and reports that the current pain medication is helping to control the pain and improve activities of daily living. Patient denies any motor or sensory deficits. Patient denies any fever or night sweats, denies any change in the bowel movements or urination. Physical Examination: -Constitutional: Cooperative. Not in acute distress . -HEENT: Neck is supple. No lymphadenopathy. No thyromegaly. Normal thyroid size. Eyes: No ptosis , no icterus, no photophobia. ENT: No auditory deficits. Normal oropharynx. No Thrush. - Respiratory: Chest clear to auscultations bilaterally. No wheezing. No rhonchi. - Cardiovascular: Regular rate and rhythm. S1 / S2 , no S3 , no S4. - Gastrointestinal: Abdomen soft no tenderness. Bowel sounds positive in all four quadrants. No organomegaly. - Genitourinary: Deferred. - Neurologic: Cranial nerve II to XII intact. No focal neurological deficits. - Psychatric: Alert & oriented x 3. Matching mood & appropriate affect. Judgment and insight intact. - Lymphatic: No Lymphadenopathy. - Musculoskeletal: Cervical spine: Muscle bulk/ tone/ strength in the bilateral upper extremities normal. Facet loading test cervical area positive. Lumbar spine: Motor bulk/ tone/ strength lower extremities , thigh and legs : 5/5 Deep tendon reflexes : Normal Knee Jerk. Normal Ankle Jerk . Vertebral body tenderness to palpation over Lumbar Facet Loading Test positive Straight Leg Raise: positive at 30 degrees right side/ left side Gaenslen's Test positive Sacral spine : Severe tenderness over the Sacroiliac joint: right side / left side Range of motion: Flexion of the lumbar spine <60 degrees Range of motion: Extension of the lumbar spine <20 degrees Gaenslen's Test positive Nacho test: positive right side / left side Assessment and plan: Chronic low back pain secondary to lumbar degenerative disc disease , lumbar spondylosis with facet arthropathy without myelopathy, L Sacroileitis. Patient admits to sufficient and substantial pain relief that extends to this day status post procedure. Patient is aware she may return to work clinic on an as-needed basis. All patient questions answered MAPS reviewed and it was appropriate. I have spent 31 minutes on patient care today. Dr Harman was available by phone for the evaluation of this patient. The time was used to review the medical records including relevant urine studies and Prescription history (MAPs), review of the available imaging, evaluation and examination of the patient, coordination of care with the medical staff and if applicable referring physicians, as well as creation of the medical record Objective - Vital Signs Vital signs: Vital Signs Temp 98 F 01/02/22 11:55 Pulse 69 01/02/22 11:55 Resp 16 01/02/22 11:55 BP 156/69 01/02/22 11:55 Pulse Ox 94 L 01/02/22 11:55 PQRS Measure Charge Sheet Mode of Arrival: Ambulatory - Pain Location Left Lower Back Non-Pharmacological Interventions: Chiropractic Treatment, Heat, Home Exercise, Inactivity, Physical Therapy, Position/Reposition, Sitting, Stretching Pharmacological Interventions: Epidural, PRN Medication PQRS Narrative: Smoking Status Former smoker Blood Pressure 156/69 Pain Intensity [Left Lower 1 Back] Scale Used Numeric (1 - 10) Hx Alcohol Use (MH) No Home Medications: Ambulatory Orders Aspirin 81 mg PO DAILY 11/20/14 PHENobarbital [Phenobarbital] 32.4 mg PO BID 11/20/14 Acetaminophen [Tylenol Arthritis] 1,300 mg PO HS 12/31/20 Budesonide/Formoterol Fumarate [Symbicort 160-4.5 Mcg Inhaler] 2 puff INHALATION BID 12/31/20 Metoprolol Succinate [Toprol XL] 100 mg PO DAILY 12/31/20 Naproxen Sodium [Aleve] 220 mg PO DAILY 11/01/21
== END | disposition home or self-care (01) ==
LOC: PNWHC3 11:03
PROVIDERS: ATTEND Specialist
DX: M47.896 Other spondylosis, lumbar region (principal); M51.36 Other intervertebral disc degeneration, lumbar region
CPT/HCPCS: 99211

== ENCOUNTER → 2022-07-14 | Outpatient (CLI) | payer MEDICARE, BC ==
--- NOTE | 2022-07-14 17:05 | XR ---
EXAMINATION TYPE: XR chest 2V DATE OF EXAM: 07/14/2022 COMPARISON: 05/29/2021 HISTORY: 77-year-old female C64.2, follow-up staging left kidney cancer. TECHNIQUE: Frontal and lateral views FINDINGS: Heart normal size. Mild atherosclerotic arch calcifications. Hazy densities in the lower lungs relate s to overlying soft tissue. Slightly prominent anterior clear space. No consolidation or pleural effu carly. Questionable subtle nodule periphery of the right midlung and left upper lobe. IMPRESSION: Underlying COPD. Questionable subtle nodule versus summation artifact at the periphery of the right m id lung and left upper lobe. CT can provide more detailed parenchymal assessment.
== END | disposition home or self-care (01) ==
LOC: RADXRMAIN 15:05
PROVIDERS: ATTEND Urology
DX: C64.2 Malignant neoplasm of left kidney, except renal pelvis (principal)
CPT/HCPCS: 71046

== ENCOUNTER → 2022-07-31 | Outpatient (CLI) | payer MEDICARE, BC ==
--- NOTE | 2022-07-31 10:46 | CT ---
EXAMINATION TYPE: CT chest w con DATE OF EXAM: 07/31/2022 COMPARISON: 12/31/2020, chest x-ray 07/14/2022 HISTORY: Nodule CT DLP: 574 mGycm Automated exposure control for dose reduction was used. TECHNIQUE: CT scan of the chest is performed with IV Contrast, patient injected with 70 mL of Isovue 300. MIP I mages are created on CT scanner and reviewed. 3D reconstructed images are created on an independent w orkstation and reviewed. FINDINGS: LUNGS: The lungs are grossly clear, there is no solid consolidative pneumonia pneumonia. There is n o pleural effusion or pneumothorax seen. The tracheobronchial tree is patent. Within the anterior se gment right upper lobe there is a 4 mm pulmonary nodule. Subsegmental linear changes involving the lanny ngs most typical of scarring or discoid atelectasis. Underlying COPD and emphysematous changes are no lissy. MEDIASTINUM: There are no greater than 1 cm hilar or mediastinal lymph nodes. No pericardial effusi on is seen. Atherosclerotic change of aorta and proximal left subclavian artery. Thyroid tissue is p rominent. Coronary artery calcification noted. OTHER: A nonobstructing right renal calculi are seen and there is absence of the left kidney with bingham rgical clips in the renal bed correlate clinically. Subcentimeter hypodensities within the right kidn ey small to characterize. IMPRESSION: 1. COPD with no acute process. 2. 4 mm right upper lobe anterior segment nodule has a benign appearance recommend follow-up in 6 mon th follow-up to confirm stability 3. Coronary artery calcification 4. Thyromegaly
== END | disposition home or self-care (01) ==
LOC: RADCTMAIN 08:37
PROVIDERS: ATTEND Internal Medicine Critical Care Medicine
DX: R91.1 Solitary pulmonary nodule (principal); J44.9 Chronic obstructive pulmonary disease, unspecified; I25.10 Atherosclerotic heart disease of native coronary artery without angina pectoris; E01.0 Iodine-deficiency related diffuse (endemic) goiter
CPT/HCPCS: 82565; 84520; 71260; 36415; Q9967

== ENCOUNTER → 2022-08-12 | Outpatient (CLI) | payer MEDICARE, BC ==
--- NOTE | 2022-08-13 10:10 | MM ---
Reason for Exam: Screening (asymptomatic). Last mammogram was performed 1 year(s) and 4 month(s) ago. Patient History: Menarche at age 15. First Full-Term at age 17. Hysterectomy at age 32. Postmenopausal. Other cancer, age 70. Estrogen for 1 year from age 50 until age 51. 1998, Bilateral Implant Removal. Sister had ovarian cancer. Risk Values: Della 5 year model risk: 1.1%. NCI Lifetime model risk: 2.2%. Prior Study Comparison: 05/18/2018 Bilateral Screening Mammogram, [facility]. 07/13/2019 Bilateral Screening Mammogram, [facility]. 03/29/2021 Bilateral Screening Mammogram, [facility]. Tissue Density: There are scattered fibroglandular densities. Findings: Analyzed By CAD. Benign-appearing vascular calcifications in the bilateral breasts are redemonstrated. Benign-appearing bilateral axillary lymph nodes are again seen. There is no suspicious group of microcalcifications or new suspicious mass in either breast. Overall Assessment: Benign, BI-RAD 2 Management: Screening Mammogram of both breasts in 1 year. A clinical breast exam by your physician is recommended on an annual basis and results should be correlated with mammographic findings. Electronically signed and approved by: Trey Ellis M.D.
== END | disposition home or self-care (01) ==
LOC: RADMAMWWP 13:08
PROVIDERS: ATTEND Internal Medicine
DX: Z12.31 Encounter for screening mammogram for malignant neoplasm of breast (principal); M85.88 Other specified disorders of bone density and structure, other site
CPT/HCPCS: 77063; 77067

== ENCOUNTER → 2023-07-17 | Outpatient (CLI) | payer MEDICARE, BC ==
[2023-07-17 21:38] LABS: ALT 18 U/L (8-44); AST 19 U/L (13-35); Albumin 4.2 d/dL (3.8-4.9); Alkaline Phosphatase 88 U/L (41-126); BUN/Creat Ratio 14.17 Ratio (12.00-20.00); Calcium 9.6 mg/dL (8.7-10.3); Carbon Dioxide 25.2 mmol/L (21.6-31.8); Chloride 102 mmol/L (96-109); Globulin 2.8 d/dL (1.6-3.3); Glucose 107 mg/dL (70-110); Potassium 4.9 mmol/L (3.5-5.5); Sodium 139 mmol/L (135-145); Total Bilirubin <0.2 mg/dL (0.3-1.2)
== END | disposition home or self-care (01) ==
LOC: LABWHC1 14:51
PROVIDERS: ATTEND Urology
DX: C64.2 Malignant neoplasm of left kidney, except renal pelvis (principal)
CPT/HCPCS: 36415; 80053

== ENCOUNTER → 2023-11-11 | Outpatient (CLI) | payer MEDICARE, BC ==
--- NOTE | 2023-11-12 09:02 | MM ---
Reason for Exam: Screening (asymptomatic). Last mammogram was performed 1 year(s) and 3 month(s) ago. Patient History: Menarche at age 15. First Full-Term at age 17. Hysterectomy at age 32. Postmenopausal. Other cancer, age 70. Estrogen for 1 year from age 50 until age 51. 1998, Bilateral Implant Removal. Sister had ovarian cancer. Risk Values: Della 5 year model risk: 1.1%. NCI Lifetime model risk: 2.0%. Prior Study Comparison: 07/13/2019 Bilateral Screening Mammogram, [facility]. 03/29/2021 Bilateral Screening Mammogram, [facility]. 08/12/2022 Bilateral MG 3D screening mammo w/cad, [facility]. Tissue Density: There are scattered fibroglandular densities. Findings: Analyzed By CAD. There is no suspicious group of microcalcifications or new suspicious mass. Overall Assessment: Negative, BI-RAD 1 Management: Screening Mammogram of both breasts in [address] [facility] will attempt to contact patient to return for supplemental views and ultrasound if indicated. Patient should continue monthly self-breast exams. A clinical breast exam by your physician is recommended on an annual basis. This exam should not preclude additional follow-up of suspicious palpable abnormalities. Note on Della scores and lifetime risk: 1. A Della score greater than 3% is considered moderate risk. If this is the case, consider specialist referral to assess eligibility for a risk reducing agent. 2. If overall lifetime risk for the development of breast cancer is 20% or higher, the patient may qualify for future screening with alternating mammogram and breast MRI. Electronically signed and approved by: Ernie Nava DO
== END | disposition home or self-care (01) ==
LOC: RADMAMWWP 13:39
PROVIDERS: ATTEND Internal Medicine
DX: Z12.31 Encounter for screening mammogram for malignant neoplasm of breast (principal)
CPT/HCPCS: 77063; 77067

== ENCOUNTER 2023-12-12 08:23 | Inpatient (IN) | payer MEDICARE, BC ==
[2023-12-12] MEDS: methylPREDNISolone SOD SUCCI 125 MG/2 ML VIAL IV STA (09:29)
--- NOTE | 2023-12-12 09:49 | XR ---
EXAMINATION TYPE: XR chest 2V DATE OF EXAM: 12/12/2023 9:04 AM CLINICAL INDICATION:Female, 78 years old with history of difficulty breathing; [facility] COMPARISON: 07/14/2022 TECHNIQUE: XR chest 2V. Frontal and lateral views of the chest.. FINDINGS: Lines/Tubes/Devices: No indwelling lines are seen. Heart/mediastinum: Heart size is normal. Aorta is mildly tortuous with partial calcification. Pulmonary vascularity: Not increased, Lungs/Pleura: Lungs appear hyperinflated with interstitial coarsening, flattening of the diaphragm, w idening of the AP dimension of the chest, findings suggestive of COPD. No acute consolidation, pleura l effusion, or pneumothorax. Tiny pulmonary nodularity appears grossly unchanged but not well assesse d radiographically; continued correlation and follow-up CT chest. Musculoskeletal: No acute osseous abnormality demonstrated in the limits of the exam. Mild degenerat manny disc disease changes with slight exaggeration of the normal thoracic kyphosis. Other findings: None. IMPRESSION: No acute cardiopulmonary abnormality. COPD changes.
[2023-12-12 09:55] LABS: Basophils % (A) 1 %; Eosinophils % (A) 0 %; HCT 47.2 % (34.0-46.0); HGB 14.9 gm/dL (11.4-16.0); Lymphocytes % (A) 14 %; MCHC 31.7 g/dL (31.0-37.0); MCV 94.8 fL (80.0-100.0); Mean Platelet Volume 7.5; Monocytes # (A) 0.5 k/uL (0-1.0); Monocytes % (A) 7 %; Neutrophils # (A) 5.2 k/uL (1.3-7.7); Neutrophils % (A) 75 %; Platelet Count 230 k/uL (150-450); RBC 4.98 m/uL (3.80-5.40); RDW 13.6 % (11.5-15.5); WBC 6.9 k/uL (3.8-10.6)
[2023-12-12] MEDS: IPRATROPIUM-ALBUTEROL 3 ML NEB INHALATION STA (10:02)
[2023-12-12 10:16] LABS: ALT 22 U/L (4-34); AST 42 U/L (14-36); African American GFR (CKD) 67 (>60 ml/min/1.73 sqM); Albumin 4.4 g/dL (3.5-5.0); Alkaline Phosphatase 88 U/L (38-126); Anion Gap 7 mmol/L; Blood Urea Nitrogen 16 mg/dL (7-17); Calcium 9.4 mg/dL (8.4-10.2); Carbon Dioxide 25 mmol/L (22-30); Chloride 105 mmol/L (98-107); Glucose 106 mg/dL (74-99); Magnesium 2.1 mg/dL (1.6-2.3); Non-African American GFR(CKD) 58 (>60 ml/min/1.73 sqM); Sodium 137 mmol/L (137-145); Total Bilirubin 0.6 mg/dL (0.2-1.3); Total Protein 7.6 g/dL (6.3-8.2)
[2023-12-12 10:18] LABS: Potassium 5.1 mmol/L (3.5-5.1)
[2023-12-12 10:25] LABS: NT-Pro-B-Type Natriuretic Pept 595 pg/mL
[2023-12-12 10:28] LABS: Partial Thromboplastin Time 26.3 sec (22.0-30.0); Prothrombin Time 10.7 sec (10.0-12.5)
[2023-12-12] MEDS ORDERED: NALOXONE 0.4 MG/ML 1 ML VIAL IVP PRN (10:49)
[2023-12-12] MEDS ORDERED: IPRATROPIUM-ALBUTEROL 3 ML NEB INHALATION PRN (10:49)
--- NOTE | 2023-12-12 10:56 | ED ---
URI HPI - General Chief Complaint: Upper Respiratory Infection Stated Complaint: SOB Time Seen by Provider: 12/12/23 08:30 Source: patient, RN notes reviewed Mode of arrival: ambulatory Limitations: no limitations - History of Present Illness Initial Comments: 78-year-old female presents emergency department complaint shortness of breath. Patient states she is not feeling well of recent. Patient states that she was seen at Dr. Bonner's office in which she had negative COVID and influenza. Patient states that her symptoms are worsening she had increasing dyspnea she states that she does use her regular inhalers at tried her rescue inhaler with no relief. - Related Data Home Medications Medication Instructions Recorded Confirmed Aspirin 81 mg PO DAILY 11/20/14 01/02/22 PHENobarbitaL [Phenobarbital] 32.4 mg PO BID 11/20/14 01/02/22 Acetaminophen [Tylenol Arthritis] 1,300 mg PO HS 12/31/20 01/02/22 Budesonide/Formoterol Fumarate 2 puff INHALATION BID 12/31/20 01/02/22 [Symbicort 160-4.5 Mcg Inhaler] Metoprolol Succinate [Toprol XL] 100 mg PO DAILY 12/31/20 01/02/22 Naproxen Sodium [Aleve] 220 mg PO DAILY 11/01/21 01/02/22 Allergies Allergy/AdvReac Type Severity Reaction Status Date / Time benoxinate HCl [From Fluress] Allergy Unknown Verified 12/12/23 08:29 ciprofloxacin [From Cipro] Allergy "head felt Verified 12/12/23 08:29 weird like I might have seizure" erythromycin base Allergy Wheezing Verified 12/12/23 08:29 fluorescein sodium Allergy Unknown Verified 12/12/23 08:29 [From Fluress] Influenza Virus Vaccines Allergy tremors,muscle Verified 12/12/23 08:29 weakness Penicillins Allergy TONGUE Verified 12/12/23 08:29 SWELLING phenytoin sodium Allergy HIGH FEVER Verified 12/12/23 08:29 [From Dilantin] phenytoin sodium extended Allergy HIGH FEVER Verified 12/12/23 08:29 [From Dilantin] Egjmpht-IYV-RmE Reductase AdvReac muscle Verified 12/12/23 08:29 Inhibitor weakness [Tkwjoqc-Obi-Qad Reductase Inhibitor] Sulfa (Sulfonamide AdvReac Wheezing Verified 12/12/23 08:29 Antibiotics) Review of Systems ROS Statement: Those systems with pertinent positive or pertinent negative responses have been documented in the HPI. ROS Other: All systems not noted in ROS Statement are negative. Past Medical History Past Medical History: Atrial Fibrillation, Cancer, COPD, Eye Disorder, Fibromyalgia, Hyperlipidemia, Hypertension, Osteoarthritis (OA), Pneumonia, Seizure Disorder Additional Past Medical History / Comment(s): Hx two seizures in the 1970's, varicose veins, hx left kidney mass R/T kidney renal cell cancer 2016, shoulder, neck and right wrist pain. History of Any Multi-Drug Resistant Organisms: None Reported Past Surgical History: Hysterectomy, Tonsillectomy Additional Past Surgical History / Comment(s): CYSTOCELE repair, VEIN STRIPPING, bilateral cataracts, left kidney removed, pain procedure. Past Anesthesia/Blood Transfusion Reactions: Previous Problems w/ Anesthesia, Motion Sickness, Postoperative Nausea & Vomiting (PONV) Additional Past Anesthesia/Blood Transfusion Reaction / Comment(s): HAD SEVERE TREMORS POST SPINAL ANESTHESIA. Past Psychological History: No Psychological Hx Reported Smoking Status: Former smoker Past Alcohol Use History: None Reported Past Drug Use History: None Reported - Past Family History Mother Family Medical History: Coronary Artery Disease (CAD), Hypertension Additional Family Medical History / Comment(s): CABG Father Family Medical History: Cancer Additional Family Medical History / Comment(s): COLON CANCER. Sister(s) Family Medical History: Cancer Additional Family Medical History / Comment(s): OVARIAN CANCER. General Exam Limitations: no limitations General appearance: alert, in no apparent distress Head exam: Present: atraumatic, normocephalic, normal inspection Eye exam: Present: normal appearance, PERRL, EOMI. Absent: scleral icterus, conjunctival injection, periorbital swelling Neck exam: Present: normal inspection. Absent: tenderness, meningismus, lymphadenopathy Respiratory exam: Present: wheezes, decreased breath sounds. Absent: normal lung sounds bilaterally, respiratory distress, rales, rhonchi, stridor Cardiovascular Exam: Present: regular rate, normal rhythm, normal heart sounds. Absent: systolic murmur, diastolic murmur, rubs, gallop, clicks GI/Abdominal exam: Present: soft, normal bowel sounds. Absent: distended, tenderness, guarding, rebound, rigid Course Vital Signs 12/12/23 12/12/23 12/12/23 08:24 08:43 09:38 Temperature 98.1 F 98.6 F Pulse Rate 89 94 83 Respiratory 20 16 16 Rate Blood Pressure 179/78 124/79 162/72 O2 Sat by Pulse 91 L 93 L 93 L Oximetry 12/12/23 12/12/23 12/12/23 10:00 10:05 10:14 Temperature Pulse Rate 86 84 87 Respiratory 18 Rate Blood Pressure 167/80 O2 Sat by Pulse 93 L Oximetry Medical Decision Making - Medical Decision Making Was pt. sent in by a medical professional or institution (, BILL, STRUCTURES ENGINEER, urgent care, hospital, or fci...) When possible be specific @ -No Did you speak to anyone other than the patient for history (EMS, parent, family, police, friend...)? What history was obtained from this source @ -No Did you review nursing and triage notes (agree or disagree)? Why? @ -I reviewed and agree with nursing and triage notes Were old charts reviewed (outside hosp., previous admission, EMS record, old EKG, old radiological studies, urgent care reports/EKG's, fci records)? Report findings @ -No old charts were reviewed Differential Diagnosis (chest pain, altered mental status, abdominal pain women, abdominal pain men, vaginal bleeding, weakness, fever, dyspnea, syncope, headache, dizziness, GI bleed, back pain, seizure, CVA, palpatations, mental health, musculoskeletal)? @ -[Differential Dyspnea: Coronary syndrome, arrhythmia, tamponade, asthma, COPD, pulmonary embolism, pneumonia, pneumothorax, pulmonary effusion, anaphylaxis, diabetic ketoacidosis, flailed chest, pulmonary contusion, diaphragmatic rupture, anemia, neuromuscular, this is not meant to be an all-inclusive list. EKG interpreted by me (3pts min.). @ -As above X-rays interpreted by me (1pt min.). @ -Chest x-ray shows COPD changes CT interpreted by me (1pt min.). @ -None done U/S interpreted by me (1pt. min.). @ -None done What testing was considered but not performed or refused? (CT, X-rays, U/S, labs)? Why? @ -None What meds were considered but not given or refused? Why? @ -None Did you discuss the management of the patient with other professionals (alexandria sueonalpriya i.e. , PA, STRUCTURES ENGINEER, lab, RT, psych nurse, social service manager, security director, teacher, network security officer, case technician)? Give summary @ -[Dr. Bonner for admission for COPD exacerbation, RSV and hypoxia Was smoking cessation discussed for >3mins.? @ -No Was critical care preformed (if so, how long)? @ -No Were there social determinants of health that impacted care today? How? (Homelessness, low income, unemployed, alcoholism, drug addiction, transportation, low edu. Level, literacy, decrease access to med. care, detention, rehab)? @ -No Was there de-escalation of care discussed even if they declined (Discuss DNR or withdrawal of care, Hospice)? DNR status @ -No What co-morbidities impacted this encounter? (DM, HTN, Smoking, COPD, CAD, Cancer, CVA, ARF, Chemo, Hep., AIDS, mental health diagnosis, sleep apnea, morbid obesity)? @ -COPD Was patient admitted / discharged? Hospital course, mention meds given and route, prescriptions, significant lab abnormalities, going to OR and other pertinent info. @ -Patient has persistent dyspnea, mild hypoxia with COPD exacerbation. Patient is RSV positive. Patient was given steroids, breathing treatments with minimal improvement. She was admitted with consult to pulmonology. Patient does have D-dimer .8 which is age-appropriate. Undiagnosed new problem with uncertain prognosis? @ -No Drug Therapy requiring intensive monitoring for toxicity (Heparin, Nitro, Insulin, Cardizem)? @ -No Were any procedures done? @ -No Diagnosis/symptom? @ -[COPD exacerbation, RSV Acute, or Chronic, or Acute on Chronic? @ -Acute Uncomplicated (without systemic symptoms) or Complicated (systemic symptoms)? @ -Complicated Side effects of treatment? @ -[No Exacerbation, Progression, or Severe Exacerbation? @ -[Exacerbation Poses a threat to life or bodily function? How? (Chest pain, USA, PR, pneumonia, PE, COPD, DKA, ARF, appy, cholecystitis, CVA, Diverticulitis, Homicidal, Suicidal, threat to staff... and all critical care pts) @ -Yes, COPD, hypoxia - Lab Data Result diagrams: 12/12/23 08:47 12/12/23 08:47 Lab Results 12/12/23 12/12/23 12/12/23 Range/Units 08:47 08:47 08:47 WBC 6.9 (3.8-10.6) k/uL RBC 4.98 (3.80-5.40) m/uL Hgb 14.9 (11.4-16.0) gm/dL Hct 47.2 H (34.0-46.0) % MCV 94.8 (80.0-100.0) fL MCH 30.0 (25.0-35.0) pg MCHC 31.7 (31.0-37.0) g/dL RDW 13.6 (11.5-15.5) % Plt Count 230 (150-450) k/uL MPV 7.5 Neutrophils % 75 % Lymphocytes % 14 % Monocytes % 7 % Eosinophils % 0 % Basophils % 1 % Neutrophils # 5.2 (1.3-7.7) k/uL Lymphocytes # 1.0 (1.0-4.8) k/uL Monocytes # 0.5 (0-1.0) k/uL Eosinophils # 0.0 (0-0.7) k/uL Basophils # 0.0 (0-0.2) k/uL PT 10.7 (10.0-12.5) sec INR 1.0 (<1.2) APTT 26.3 (22.0-30.0) sec D-Dimer 0.85 H (<0.60) mg/L FEU Sodium 137 (137-145) mmol/L Potassium 5.1 (3.5-5.1) mmol/L Chloride 105 (98-107) mmol/L Carbon Dioxide 25 (22-30) mmol/L Anion Gap 7 mmol/L BUN 16 (7-17) mg/dL Creatinine 0.94 (0.52-1.04) mg/dL Est GFR (CKD-EPI)AfAm 67 (>60 ml/min/1.73 sqM) Est GFR (CKD-EPI)NonAf 58 (>60 ml/min/1.73 sqM) Glucose 106 H (74-99) mg/dL Plasma Lactic Acid Joaquin (0.7-2.0) mmol/L Calcium 9.4 (8.4-10.2) mg/dL Magnesium 2.1 (1.6-2.3) mg/dL Total Bilirubin 0.6 (0.2-1.3) mg/dL AST 42 H (14-36) U/L ALT 22 (4-34) U/L Alkaline Phosphatase 88 (38-126) U/L Troponin I (0.000-0.034) ng/mL NT-Pro-B Natriuret Pep 595 pg/mL Total Protein 7.6 (6.3-8.2) g/dL Albumin 4.4 (3.5-5.0) g/dL Influenza Type A (PCR) (Not Detectd) Influenza Type B (PCR) (Not Detectd) RSV (PCR) (Not Detectd) SARS-CoV-2 (PCR) (Not Detectd) 12/12/23 12/12/23 12/12/23 Range/Units 08:47 08:47 08:47 WBC (3.8-10.6) k/uL RBC (3.80-5.40) m/uL Hgb (11.4-16.0) gm/dL Hct (34.0-46.0) % MCV (80.0-100.0) fL MCH (25.0-35.0) pg MCHC (31.0-37.0) g/dL RDW (11.5-15.5) % Plt Count (150-450) k/uL MPV Neutrophils % % Lymphocytes % % Monocytes % % Eosinophils % % Basophils % % Neutrophils # (1.3-7.7) k/uL Lymphocytes # (1.0-4.8) k/uL Monocytes # (0-1.0) k/uL Eosinophils # (0-0.7) k/uL Basophils # (0-0.2) k/uL PT (10.0-12.5) sec INR (<1.2) APTT (22.0-30.0) sec D-Dimer (<0.60) mg/L FEU Sodium (137-145) mmol/L Potassium (3.5-5.1) mmol/L Chloride (98-107) mmol/L Carbon Dioxide (22-30) mmol/L Anion Gap mmol/L BUN (7-17) mg/dL Creatinine (0.52-1.04) mg/dL Est GFR (CKD-EPI)AfAm (>60 ml/min/1.73 sqM) Est GFR (CKD-EPI)NonAf (>60 ml/min/1.73 sqM) Glucose (74-99) mg/dL Plasma Lactic Acid Joaquin 1.1 (0.7-2.0) mmol/L Calcium (8.4-10.2) mg/dL Magnesium (1.6-2.3) mg/dL Total Bilirubin (0.2-1.3) mg/dL AST (14-36) U/L ALT (4-34) U/L Alkaline Phosphatase (38-126) U/L Troponin I <0.012 (0.000-0.034) ng/mL NT-Pro-B Natriuret Pep pg/mL Total Protein (6.3-8.2) g/dL Albumin (3.5-5.0) g/dL Influenza Type A (PCR) Not Detected (Not Detectd) Influenza Type B (PCR) Not Detected (Not Detectd) RSV (PCR) Detected A (Not Detectd) SARS-CoV-2 (PCR) Not Detected (Not Detectd) - EKG Data -: EKG Interpreted by [place] EKG Comments: EKG performed at 9: 39 sinus rhythm rate of 87 [place] 177 QRS 77 QT/QTc 341/386 Disposition Clinical Impression: RSV infection, COPD exacerbation Disposition: ADMITTED IP TO THIS HOSP Condition: Fair Referrals: Christofer Oliver MD [Primary Care Provider] - 1-2 days Time of Disposition: 10:55
--- NOTE | 2023-12-12 11:49 | CT ---
EXAMINATION TYPE: CT chest angio for PE CT DLP: 241.9 mGycm, Automated exposure control for dose reduction was used. DATE OF EXAM: 12/12/2023 11:25 AM COMPARISON: Chest radiograph from same day. 12/31/2020. CLINICAL INDICATION:Female, 78 years old with history of sob; SOB,.+ RSV TECHNIQUE/CONTRAST: CTA scan of the thorax is performed with IV Contrast, patient injected with 80 mL of Isovue 300, MIP images are created and reviewed these are created on a separate workstation.. FINDINGS: Pulmonary Artery: There is no evidence for a filling defect within the pulmonary vasculature to sugge st acute pulmonary embolism. The pulmonary artery is of normal size. Lungs/Pleura: No evidence of focal consolidation, pleural effusion or pneumothorax. Mild centrilobula r emphysema changes are seen throughout the lungs. Airway: Large airways are patent. Heart: Heart is within normal limits for size. Atherosclerosis of the coronary arteries. Aortic leafl et consultations. Vasculature: Mild atherosclerotic calcifications are present throughout the aorta and its branches. Mediastinum: No gross evidence of adenopathy. Musculoskeletal: Mild degenerative disc disease changes are present throughout the thoracolumbar spin e. Soft Tissues: Unremarkable. Lower neck: No significant findings. Upper Abdomen: The left kidney is not visualized and may be surgically absent. IMPRESSION: 1. No evidence of pulmonary embolism. 2. Mild emphysema
[2023-12-12] MEDS: IPRATROPIUM-ALBUTEROL 3 ML NEB INHALATION SCH (12:15)
[2023-12-12] MEDS: methylPREDNISolone SOD SUCCI 125 MG/2 ML VIAL IV SCH (12:31)
--- NOTE | 2023-12-12 13:38 | P.CONS ---
History of Present Illness - Reason for Consult Consult date: 12/12/23 - History of Present Illness Donna Holland, is a 78-year-old female who presented to [facility] emergency room with a chief complaint of worsening shortness of breath She was evaluated in the emergency room vital examination on presentation revealed a temperature of 98.1 pulse 89 respiration 20 blood pressure 179/78 pulse ox 91% on room air Laboratory data revealed a white blood count of 6.9 hemoglobin 14.9 platelet count 2:30 d-dimer 0.85 BUN 16 creatinine 0.94 RSV PCR was positive Testing in the emergency room revealed EKG revealed normal sinus rhythm, chest x-ray did not reveal any acute abnormality, chest CT angiogram was negative for pulmonary embolism Patient was admitted to medical floor for further evaluation and treatment Past Medical History Past Medical History: Atrial Fibrillation, Cancer, COPD, Eye Disorder, Fibromyalgia, Hyperlipidemia, Hypertension, Osteoarthritis (OA), Pneumonia, Seizure Disorder Additional Past Medical History / Comment(s): Hx two seizures in the s, varicose veins, hx left kidney mass R/T kidney renal cell cancer 2015, shoulder, neck and right wrist pain. History of Any Multi-Drug Resistant Organisms: None Reported Past Surgical History: Hysterectomy, Tonsillectomy Additional Past Surgical History / Comment(s): CYSTOCELE repair, VEIN STRIPPING, bilateral cataracts, left kidney removed, pain procedure. Past Anesthesia/Blood Transfusion Reactions: Previous Problems w/ Anesthesia, Motion Sickness, Postoperative Nausea & Vomiting (PONV) Additional Past Anesthesia/Blood Transfusion Reaction / Comm: HAD SEVERE TREMORS POST SPINAL ANESTHESIA. Past Psychological History: No Psychological Hx Reported Smoking Status: Former smoker Past Alcohol Use History: None Reported Past Drug Use History: None Reported - Past Family History Mother Family Medical History: Coronary Artery Disease (CAD), Hypertension Additional Family Medical History / Comment(s): CABG Father Family Medical History: Cancer Additional Family Medical History / Comment(s): COLON CANCER. Sister(s) Family Medical History: Cancer Additional Family Medical History / Comment(s): OVARIAN CANCER. Medications and Allergies Home Medications Medication Instructions Recorded Confirmed Type Aspirin 81 mg PO DAILY 11/20/14 01/02/22 History PHENobarbitaL [Phenobarbital] 32.4 mg PO BID 11/20/14 01/02/22 History Acetaminophen [Tylenol Arthritis] 1,300 mg PO HS 12/31/20 01/02/22 History Budesonide/Formoterol Fumarate 2 puff INHALATION BID 12/31/20 01/02/22 History [Symbicort 160-4.5 Mcg Inhaler] Metoprolol Succinate [Toprol XL] 100 mg PO DAILY 12/31/20 01/02/22 History Naproxen Sodium [Aleve] 220 mg PO DAILY 11/01/21 01/02/22 History Allergies Allergy/AdvReac Type Severity Reaction Status Date / Time benoxinate HCl [From Fluress] Allergy Unknown Verified 12/12/23 08:29 ciprofloxacin [From Cipro] Allergy "head felt Verified 12/12/23 08:29 weird like I might have seizure" erythromycin base Allergy Wheezing Verified 12/12/23 08:29 fluorescein sodium Allergy Unknown Verified 12/12/23 08:29 [From Fluress] Influenza Virus Vaccines Allergy tremors,muscle Verified 12/12/23 08:29 weakness Penicillins Allergy TONGUE Verified 12/12/23 08:29 SWELLING phenytoin sodium Allergy HIGH FEVER Verified 12/12/23 08:29 [From Dilantin] phenytoin sodium extended Allergy HIGH FEVER Verified 12/12/23 08:29 [From Dilantin] [id number] Reductase AdvReac muscle Verified 12/12/23 08:29 Inhibitor weakness [Tfaxtoz-Dng-Nza Reductase Inhibitor] Sulfa (Sulfonamide AdvReac Wheezing Verified 12/12/23 08:29 Antibiotics) Physical Exam Vitals: Vital Signs Temp Pulse Resp BP Pulse Ox 12/12/23 11:00 162/72 93 L 12/12/23 10:14 87 12/12/23 10:05 84 12/12/23 10:00 86 18 167/80 93 L 12/12/23 09:38 83 16 162/72 93 L 12/12/23 08:43 98.6 F 94 16 124/79 93 L 12/12/23 08:24 98.1 F 89 20 179/78 91 L Intake and Output 12/11/23 12/12/23 12/12/23 22:59 06:59 14:59 Other: Weight 70.76 kg In general patient is alert and oriented x 3 in no distress HEENT head normocephalic and atraumatic Neck is supple no JVD no goiter no lymphadenopathy no carotid bruit Chest examination reveals a scattered crackles bilaterally with wheezing Cardiac exam reveals regular heart sounds S1 and S2 no gallops no murmurs Abdomen is soft nontender no organomegaly with normal bowel sounds Extremity exam reveals no edema no cyanosis or clubbing Neurological examination reveals no gross focal deficits Results CBC & Chem 7: 12/12/23 08:47 12/12/23 08:47 Labs: Abnormal Lab Results - Last 24 Hours (Table) 12/12/23 12/12/23 12/12/23 Range/Units 08:47 08:47 08:47 Hct 47.2 H (34.0-46.0) % D-Dimer 0.85 H (<0.60) mg/L FEU Glucose 106 H (74-99) mg/dL AST 42 H (14-36) U/L RSV (PCR) (Not Detectd) 12/12/23 Range/Units 08:47 Hct (34.0-46.0) % D-Dimer (<0.60) mg/L FEU Glucose (74-99) mg/dL AST (14-36) U/L RSV (PCR) Detected A (Not Detectd) Assessment and Plan Plan: Acute RSV infection Acute exacerbation of chronic obstructive pulmonary disease Underlying history of hypertension Underlying history of hyperlipidemia Underlying history of seizure disorder Underlying history of COPD Underlying history of kidney cancer diagnosed in 2016 and had left nephrectomy Underlying history of osteoarthritis Previous history of atrial fibrillation At this time patient was seen and examined Home medications reviewed Patient was started on IV Solu-Medrol and inhaled bronchodilators Pulmonary consultation requested For DVT prophylaxis subcu Lovenox Will follow closely
[2023-12-12] MEDS: ACETAMINOPHEN TAB 325 MG TAB PO PRN (14:03)
[2023-12-12] MEDS: SYMBICORT 160-4.5 MCG INHALER INHALATION SCH (20:01)
[2023-12-12] MEDS: CEFDINIR 300 MG CAP PO SCH (20:37)
[2023-12-13] MEDS: ENOXAPARIN 40 MG/0.4 ML SYRINGE SQ SCH (08:57)
[2023-12-13] MEDS: MULTIVITAMINS, THERA 1 EACH TAB PO SCH (08:58)
[2023-12-13] MEDS: ASPIRIN 81 MG PO SCH (08:58)
[2023-12-13] MEDS: METOPROLOL SUCCINATE (ER) 100 MG TAB.ER.24H PO SCH (08:58)
--- NOTE | 2023-12-13 09:56 | P.PN ---
Subjective Progress Note Date: 12/13/23 Donna Holland, is a 78-year-old female who presented to [facility] emergency room with a chief complaint of worsening shortness of breath She was evaluated in the emergency room vital examination on presentation revealed a temperature of 98.1 pulse 89 respiration 20 blood pressure 179/78 pulse ox 91% on room air Laboratory data revealed a white blood count of 6.9 hemoglobin 14.9 platelet count 2:30 d-dimer 0.85 BUN 16 creatinine 0.94 RSV PCR was positive Testing in the emergency room revealed EKG revealed normal sinus rhythm, chest x-ray did not reveal any acute abnormality, chest CT angiogram was negative for pulmonary embolism Patient was admitted to medical floor for further evaluation and treatment On 12/13/2023 patient alert and oriented 3. Patient reports some improvement still having some episodes of shortness of breath the last congested cough. Patient remains on IV Solu-Medrol pulmonary service is consulted. Current vital signs of 97.8, heart rate 78, respiratory rate 17, blood pressure 160/75 and pulse ox 97% on 3 L. Patient denies chest pain. Patient denies nausea vomiting or diarrhea. Patient denies any urinary burning or frequency anticipate discha rge in the next 24-48 hours Objective - Vital Signs Vital signs: Vital Signs Temp 97.8 F 12/13/23 08:00 Pulse 78 12/13/23 08:00 Resp 17 12/13/23 08:00 BP 168/75 12/13/23 08:00 Pulse Ox 97 12/13/23 08:00 FiO2 Intake & Output 12/12/23 12/13/23 12/13/23 18:59 06:59 18:59 Intake Total 594 Balance 594 Weight 70.76 kg Intake: Oral 594 Other: # Voids 1 4 - Exam In general patient is alert and oriented x 3 in no distress HEENT head normocephalic and atraumatic Neck is supple no JVD no goiter no lymphadenopathy no carotid bruit Chest examination reveals a scattered crackles bilaterally with wheezing Cardiac exam reveals regular heart sounds S1 and S2 no gallops no murmurs Abdomen is soft nontender no organomegaly with normal bowel sounds Extremity exam reveals no edema no cyanosis or clubbing Neurological examination reveals no gross focal deficits - Labs CBC & Chem 7: 12/12/23 08:47 02/24/24 08:47 Labs: Abnormal Lab Results - Last 24 Hours (Table) 12/12/23 12/12/23 12/12/23 Range/Units 08:47 08:47 08:47 Hct 47.2 H (34.0-46.0) % D-Dimer 0.85 H (<0.60) mg/L FEU Glucose 106 H (74-99) mg/dL AST 42 H (14-36) U/L Assessment and Plan Plan: Acute RSV infection Acute exacerbation of chronic obstructive pulmonary disease Underlying history of hypertension Underlying history of hyperlipidemia Underlying history of seizure disorder Underlying history of COPD Underlying history of kidney cancer diagnosed in 2016 and had left nephrectomy Underlying history of osteoarthritis Previous history of atrial fibrillation At this time patient was seen and examined Home medications reviewed Patient was started on IV Solu-Medrol and inhaled bronchodilators Pulmonary consultation requested For DVT prophylaxis subcu Lovenox Will follow closely
--- NOTE | 2023-12-13 11:07 | P.CNPUL ---
History of Present Illness Consult date: 12/13/23 Requesting physician: Edward Bonner Reason for consult: dyspnea, cough, COPD Chief complaint: Shortness of breath, cough, congestion History of present illness: This is a very pleasant 78-year-old female patient with a known history of atrial fibrillation, fibromyalgia, hyperlipidemia, hypertension, seizure disorder, former smoker with subsequent chronic obstructive pulmonary disease. This past week she had been having issues with upper respiratory symptoms. She was initiated on Ceftin and prednisone in the outpatient setting. This was only 2 days ago and she had only had 1 day of the medications without significant improvement and presented here to the emergency room yesterday for the same. He was having shortness of breath, sore throat, cough and congestion. Chest x-ray shows no acute cardiopulmonary abnormalities. Evidence of COPD. CT angiogram showed no evidence of pulmonary embolism. Lungs were clear of focal consolidation, pleural effusion or pneumothorax. Mild centrilobular emphysema changes noted. White count 6.9. Hemoglobin 14.9. Platelets 230. D-dimer 0.85. Sodium 137. Potassium 5.1. Bicarb 25. BUN 16. Creatinine 0.94. Glucose 106. Troponin negative x 1. proBNP 595. Viral screen was positive for RSV. She is seen today in consultation on the regular medical floor. She is currently sitting up at the bedside. Awake and alert in no acute distress. She does have some hoarseness. She is maintaining good O2 saturations in the 90s on 3 L/min per nasal cannula. She has been initiated on DuoNeb inhalations, Symbicort, Solu-Medrol. Continued on Omnicef. Lovenox for DVT prophylaxis. Review of Systems REVIEW OF SYSTEMS: CONSTITUTIONAL: Denies any recent significant weight loss or weight gain. EYES: Denies change in vision. EARS, NOSE, MOUTH, THROAT: Positive for sore throat. CARDIOVASCULAR: Denies chest pain, palpitations or syncopal episodes. RESPIRATORY: Positive for shortness of breath, cough, congestion no hemoptysis. GASTROINTESTINAL: Denies change in appetite, denies abdominal pain GENITOURINARY: Denies hematuria, denies infections. MUSKULOSKELETAL: Denies pain, denies swelling. INTEGUMENTARY: Denies rash, denies eczema. NEUROLOGICAL: Denies recent memory loss, no recent seizure activity. PSYCHIATRIC: Denies anxiety, denies depression. HEMATOLOGIC/LYMPHATIC: Denies anemia, denies enlarged lymph nodes. Past Medical History Past Medical History: Atrial Fibrillation, Cancer, COPD, Eye Disorder, Fibromyalgia, Hyperlipidemia, Hypertension, Osteoarthritis (OA), Pneumonia, Seizure Disorder Additional Past Medical History / Comment(s): Hx two seizures in the 1970s, varicose veins, hx left kidney mass R/T kidney renal cell cancer 2016, shoulder, neck and right wrist pain. History of Any Multi-Drug Resistant Organisms: None Reported Past Surgical History: Hysterectomy, Tonsillectomy Additional Past Surgical History / Comment(s): CYSTOCELE repair, VEIN STRIPPING, bilateral cataracts, left kidney removed, pain procedure. Past Anesthesia/Blood Transfusion Reactions: Previous Problems w/ Anesthesia, Motion Sickness, Postoperative Nausea & Vomiting (PONV) Additional Past Anesthesia/Blood Transfusion Reaction / Comment(s): HAD SEVERE TREMORS POST SPINAL ANESTHESIA. Past Psychological History: No Psychological Hx Reported Smoking Status: Former smoker Past Alcohol Use History: None Reported Past Drug Use History: None Reported - Past Family History Mother Family Medical History: Coronary Artery Disease (CAD), Hypertension Additional Family Medical History / Comment(s): CABG Father Family Medical History: Cancer Additional Family Medical History / Comment(s): COLON CANCER. Sister(s) Family Medical History: Cancer Additional Family Medical History / Comment(s): OVARIAN CANCER. Medications and Allergies Home Medications Medication Instructions Recorded Confirmed Type Aspirin 81 mg PO DAILY 11/20/14 12/12/23 History PHENobarbitaL [Phenobarbital] 32.4 mg PO BID 11/20/14 12/12/23 History Budesonide/Formoterol Fumarate 2 puff INHALATION RT-BID 12/31/20 12/12/23 History [Symbicort 160-4.5 Mcg Inhaler] Metoprolol Succinate [Toprol XL] 100 mg PO DAILY 12/31/20 12/12/23 History Multivitamins, Thera [Multivitamin 1 tab PO DAILY 12/12/23 12/12/23 History (formulary)] cefUROXime axetiL [Ceftin] 500 mg PO BID 12/12/23 12/12/23 History predniSONE 10 mg PO Q2D 12/12/23 12/12/23 History Allergies Allergy/AdvReac Type Severity Reaction Status Date / Time benoxinate HCl [From Fluress] Allergy Unknown Verified 12/12/23 13:35 erythromycin base Allergy Wheezing Verified 12/12/23 13:35 fluorescein sodium Allergy Unknown Verified 12/12/23 13:35 [From Fluress] Penicillins Allergy TONGUE Verified 12/12/23 13:35 SWELLING Sulfa (Sulfonamide Allergy Wheezing Verified 12/12/23 13:35 Antibiotics) ciprofloxacin [From Cipro] AdvReac "head felt Verified 12/12/23 13:35 weird like I might have seizure" Influenza Virus Vaccines AdvReac tremors,muscle Verified 12/12/23 13:35 weakness phenytoin sodium AdvReac HIGH FEVER Verified 12/12/23 13:35 [From Dilantin] phenytoin sodium extended AdvReac HIGH FEVER Verified 12/12/23 13:35 [From Dilantin] Rqkxvxj-TSP-EiO Reductase AdvReac muscle Verified 12/12/23 13:35 Inhibitor weakness [Idukzwa-Hem-Qqv Reductase Inhibitor] Physical Exam Vitals: Vital Signs Temp Pulse Pulse Resp BP Pulse Ox 12/13/23 08:00 97.8 F 78 17 168/75 97 12/13/23 00:56 97.9 F 81 14 166/64 97 12/12/23 20:22 97.7 F 91 14 185/85 96 12/12/23 15:58 85 12/12/23 15:48 87 12/12/23 12:53 97.4 F L 100 22 137/73 94 L 12/12/23 12:25 93 12/12/23 12:15 88 Intake and Output 12/12/23 12/13/23 12/13/23 22:59 06:59 14:59 Intake Total 594 Balance 594 Intake: Oral 594 Other: # Voids 4 GENERAL EXAM: Alert, active, pleasant 78-year-old female, on 3 L nasal cannula, comfortable in no apparent distress. HEAD: Normocephalic. EYES: Normal reaction of pupils, equal size. NOSE: Clear with pink turbinates. THROAT: No erythema or exudates. NECK: No masses, no JVD. CHEST: No chest wall deformity. LUNGS: Equal air entry with bilateral end expiratory wheeze, diminished. CVS: S1 and S2 normal with no audible murmur, regular rhythm. ABDOMEN: No hepatosplenomegaly, normal bowel sounds, no guarding or rigidity. SPINE: No scoliosis or deformity SKIN: No rashes CENTRAL NERVOUS SYSTEM: No focal deficits, tone is normal in all 4 extremities. EXTREMITIES: There is no peripheral edema. No clubbing, no cyanosis. Pe ripheral pulses are intact. Results - Laboratory Findings CBC and BMP: 12/12/23 08:47 12/12/23 08:47 PT/INR, D-dimer PT 10.7 sec (10.0-12.5) 12/12/23 08:47 INR 1.0 (<1.2) 12/12/23 08:47 D-Dimer 0.85 mg/L FEU (<0.60) H 12/12/23 08:47 Abnormal lab findings: Abnormal Labs 12/12/23 12/12/23 12/12/23 08:47 08:47 08:47 Hct 47.2 H D-Dimer 0.85 H Glucose 106 H AST 42 H RSV (PCR) 12/12/23 08:47 Hct D-Dimer Glucose AST RSV (PCR) Detected A - Diagnostic Findings Chest x-ray: image reviewed CT scan - chest: image reviewed Assessment and Plan Assessment: Acute hypoxemic respiratory failure secondary to an acute exacerbation of COPD complicated by RSV Acute RSV infection Former smoker Hypertension History of seizure disorder Plan: The patient was seen and evaluated Chest x-ray, CT angiogram, labs and medications reviewed Continue bronchodilators, steroids Titrate the FiO2 as tolerated We will continue to follow and make further recommendations based on her clinical status I have personally seen and examined the patient, performed the documentation and the assessment and plan as written. Number of minutes spent on the visit: 20.
[2023-12-14 08:27] LABS: Basophils # (A) 0.02 X 10*3/uL (0.00-0.10); Basophils % (A) 0.3 %; Eosinophils # (A) 0.11 X 10*3/uL (0.04-0.35); Eosinophils % (A) 1.8 %; HCT 44.5 % (37.2-46.3); HGB 13.9 g/dL (12.0-15.0); Lymphocytes # (A) 1.34 X 10*3/uL (0.90-5.00); MCH 29.6 pg (27.0-32.0); MCHC 31.2 g/dL (32.0-37.0); MCV 94.9 FL (80.0-97.0); Mean Platelet Volume 9.6 FL (9.5-12.2); Monocytes # (A) 0.94 X 10*3/uL (0.20-1.00); Monocytes % (A) 15.4 %; NRBC Per 100 WBC 0 X 10*3/uL (0.00-0.01); Neutrophils # (A) 3.66 X 10*3/uL (1.80-7.70); Neutrophils % (A) 60.2 %; Platelet Count 230 X 10*3/uL (140-440); RBC 4.69 X 10*6/uL (4.10-5.20); RDW 13.6 % (11.5-14.5); WBC 6.09 X 10*3/uL (4.50-10.00)
[2023-12-14 08:29] LABS: ALT 18 U/L (8-44); AST 28 U/L (13-35); Albumin 4.1 g/dL (3.8-4.9); Albumin/Globulin Ratio 1.46 Ratio (1.60-3.17); Alkaline Phosphatase 79 U/L (41-126); BUN/Creat Ratio 22.89 Ratio (12.00-20.00); Blood Urea Nitrogen 20.6 mg/dL (9.0-27.0); Calcium 9.1 mg/dL (8.7-10.3); Carbon Dioxide 25.4 mmol/L (21.6-31.8); Chloride 102 mmol/L (96-109); Globulin 2.8 g/dL (1.6-3.3); Glucose 112 mg/dL (70-110); Potassium 4.6 mmol/L (3.5-5.5); Sodium 138 mmol/L (135-145); Total Bilirubin <0.2 mg/dL (0.3-1.2); Total Protein 6.9 g/dL (6.2-8.2)
--- NOTE | 2023-12-14 15:34 | P.PN ---
Subjective Progress Note Date: 12/14/23 This is a very pleasant 78-year-old female patient with a known history of atri al fibrillation, fibromyalgia, hyperlipidemia, hypertension, seizure disorder, former smoker with subsequent chronic obstructive pulmonary disease. This past week she had been having issues with upper respiratory symptoms. She was initiated on Ceftin and prednisone in the outpatient setting. This was only 2 days ago and she had only had 1 day of the medications without significant improvement and presented here to the emergency room yesterday for the same. He was having shortness of breath, sore throat, cough and congestion. Chest x-ray shows no acute cardiopulmonary abnormalities. Evidence of COPD. CT angiogram showed no evidence of pulmonary embolism. Lungs were clear of focal cons olidation, pleural effusion or pneumothorax. Mild centrilobular emphysema changes noted. White count 6.9. Hemoglobin 14.9. Platelets 230. D-dimer 0.85. Sodium 137. Potassium 5.1. Bicarb 25. BUN 16. Creatinine 0.94. Glucose 106. Troponin negative x 1. proBNP 595. Viral screen was positive for RSV. She is seen today in consultation on the regular medical floor. She is currently sitting up at the bedside. Awake and alert in no acute distress. She does have some hoarseness. She is maintaining good O2 saturations in the 90s on 3 L/min per nasal cannula. She has been initiated on DuoNeb inhalations, Symbicort, Solu-Medrol. Continued on Omnicef. Lovenox for DVT prophylaxis. On today's evaluation of 12/14/2023, the patient is being seen for a follow-up. The patient is being treated for an acute exacerbation of COPD and RSV infection patient is known to have A-fib, fibromyalgia, hypertension hyperlipidemia. She has been maintained on Symbicort on outpatient basis. Albuterol updrafts are making her shaky and I asked him to take up To Twice a Day. She Remains on IV Solu-Medrol 60 Mg Every 6 Hours. She Remains on OxygenAt 2 L/min nasal cannula with a pulse ox of 97%. Labs from today shows a white cell count of 6 with a hemoglobin of 15.9 and a platelet count of 230. Electrolytes are within normal limits. Procalcitonin level is at 0.15. Objective - Vital Signs Vital signs: Vital Signs Temp 98.3 F 12/14/23 07:37 Pulse 77 02/26/24 07:37 Resp 19 12/14/23 07:37 BP 155/75 12/14/23 07:37 Pulse Ox 97 12/14/23 07:47 FiO2 Intake & Output 12/13/23 12/14/23 12/14/23 18:59 06:59 18:59 Intake Total 1074 Balance 1074 Intake: Oral 1074 Other: # Voids 1 5 - Exam stress. HEAD: Normocephalic. EYES: Normal reaction of pupils, equal size. NOSE: Clear with pink turbinates. THROAT: No erythema or exudates. NECK: No masses, no JVD. CHEST: No chest wall deformity. LUNGS: Equal air entry with bilateral end expiratory wheeze, diminished. CVS: S1 and S2 normal with no audible murmur, regular rhythm. ABDOMEN: No hepatosplenomegaly, normal bowel sounds, no guarding or rigidity. SPINE: No scoliosis or deformity SKIN: No rashes CENTRAL NERVOUS SYSTEM: No focal deficits, tone is normal in all 4 extremities. EXTREMITIES: There is no peripheral edema. No clubbing, no cyanosis. Peripheral pulses are intact. - Labs CBC & Chem 7: 12/14/23 04:53 12/14/23 04:53 Labs: Abnormal Lab Results - Last 24 Hours (Table) 12/13/23 12/14/23 12/14/23 Range/Units 12:26 04:53 04:53 MCHC 31.2 L (32.0-37.0) g/dL BUN/Creatinine Ratio 22.89 H (12.00-20.00) Ratio Glucose 112 H (70-110) mg/dL Total Bilirubin <0.2 L (0.3-1.2) mg/dL Albumin/Globulin Ratio 1.46 L (1.60-3.17) Ratio Procalcitonin 0.15 H (0.02-0.09) ng/mL Assessment and Plan Plan: Acute hypoxemic respiratory failure secondary to an acute exacerbation of COPD complicated by RSV, still bronchospastic and wheezy although slightly improved compared to yesterday Acute RSV infection, no vaccination the patient is currently on IV Solu-Medrol COPD maintained on Symbicort on outpatient basis Former smoker Hypertension History of seizure disorder Plan Clinically the patient is improving. Continue with DuoNeb updrafts and cut down the frequency to twice a day and as needed Continue Symbicort Continue IV Solu-Medrol Wean down FiO2 as tolerated to maintain saturation above 90%
--- NOTE | 2023-12-14 17:48 | P.PN ---
Subjective Progress Note Date: 12/14/23 Donna Holland, is a 78-year-old female who presented to [facility] emergency room with a chief complaint of worsening shortness of breath She was evaluated in the emergency room vital examination on presentation revealed a temperature of 98.1 pulse 89 respiration 20 blood pressure 179/78 pulse ox 91% on room air Laboratory data revealed a white blood count of 6.9 hemoglobin 14.9 platelet count 2:30 d-dimer 0.85 BUN 16 creatinine 0.94 RSV PCR was positive Testing in the emergency room revealed EKG revealed normal sinus rhythm, chest x-ray did not reveal any acute abnormality, chest CT angiogram was negative for pulmonary embolism Patient was admitted to medical floor for further evaluation and treatment On 12/13/2023 patient alert and oriented 3. Patient reports some improvement still having some episodes of shortness of breath the last congested cough. Patient remains on IV Solu-Medrol pulmonary service is consulted. Current vital signs of 97.8, heart rate 78, respiratory rate 17, blood pressure 160/75 and pulse ox 97% on 3 L. Patient denies chest pain. Patient denies nausea vomiting or diarrhea. Patient denies any urinary burning or frequency anticipate discha rge in the next 24-48 hours On 12/14/2023 patient was seen and examined on the medical floor she is alert and oriented 3 in no apparent distress there is no fever or chills no headache or dizziness she is still complaining of cough shortness of breath and wheezing there is no chest pain no nausea or vomiting no abdominal pain no diarrhea and no urinary symptoms. Patient is improving gradually, will continue to follow closely. Objective - Vital Signs Vital signs: Vital Signs Temp 98.3 F 12/14/23 07:37 Pulse 77 12/14/23 07:37 Resp 19 12/14/23 07:37 BP 155/75 12/14/23 07:37 Pulse Ox 97 12/14/23 07:47 FiO2 Intake & Output 12/13/23 12/14/23 12/14/23 18:59 06:59 18:59 Intake Total 1074 Balance 1074 Intake: Oral 1074 Other: # Voids 1 5 - Exam In general patient is alert and oriented x 3 in no distress HEENT head normocephalic and atraumatic Neck is supple no JVD no goiter no lymphadenopathy no carotid bruit Chest examination reveals a scattered crackles bilaterally with wheezing Cardiac exam reveals regular heart sounds S1 and S2 no gallops no murmurs Abdomen is soft nontender no organomegaly with normal bowel sounds Extremity exam reveals no edema no cyanosis or clubbing Neurological examination reveals no gross focal deficits - Labs CBC & Chem 7: 12/14/23 04:53 12/14/23 04:53 Labs: Abnormal Lab Results - Last 24 Hours (Table) 12/13/23 12/14/23 12/14/23 Range/Units 12:26 04:53 04:53 MCHC 31.2 L (32.0-37.0) g/dL BUN/Creatinine Ratio 22.89 H (12.00-20.00) Ratio Glucose 112 H (70-110) mg/dL Total Bilirubin <0.2 L (0.3-1.2) mg/dL Albumin/Globulin Ratio 1.46 L (1.60-3.17) Ratio Procalcitonin 0.15 H (0.02-0.09) ng/mL Assessment and Plan Plan: Acute RSV infection Acute exacerbation of chronic obstructive pulmonary disease Underlying history of hypertension Underlying history of hyperlipidemia Underlying history of seizure disorder Underlying history of COPD Underlying history of kidney cancer diagnosed in 2016 and had left nephrectomy Underlying history of osteoarthritis Previous history of atrial fibrillation At this time patient was seen and examined Home medications reviewed Patient was started on IV Solu-Medrol and inhaled bronchodilators Pulmonary consultation requested For DVT prophylaxis subcu Lovenox Will follow closely
[2023-12-15 08:28] LABS: Basophils # (A) 0.02 X 10*3/uL (0.00-0.10); Basophils % (A) 0.2 %; Eosinophils # (A) 0 X 10*3/uL (0.04-0.35); Eosinophils % (A) 0 %; HCT 43.4 % (37.2-46.3); HGB 13.7 g/dL (12.0-15.0); Lymphocytes # (A) 1.63 X 10*3/uL (0.90-5.00); Lymphocytes % (A) 19.4 %; MCH 29.8 pg (27.0-32.0); MCHC 31.6 g/dL (32.0-37.0); MCV 94.6 FL (80.0-97.0); Mean Platelet Volume 9.5 FL (9.5-12.2); Monocytes # (A) 0.89 X 10*3/uL (0.20-1.00); Monocytes % (A) 10.6 %; NRBC Per 100 WBC 0 X 10*3/uL (0.00-0.01); Neutrophils # (A) 5.73 X 10*3/uL (1.80-7.70); Neutrophils % (A) 68.4 %; Platelet Count 252 X 10*3/uL (140-440); RBC 4.59 X 10*6/uL (4.10-5.20); RDW 13.5 % (11.5-14.5); WBC 8.39 X 10*3/uL (4.50-10.00)
[2023-12-15 08:50] LABS: ALT 20 U/L (8-44); AST 23 U/L (13-35); Albumin 4.1 g/dL (3.8-4.9); Albumin/Globulin Ratio 1.58 Ratio (1.60-3.17); Alkaline Phosphatase 76 U/L (41-126); Blood Urea Nitrogen 22.4 mg/dL (9.0-27.0); Calcium 9.1 mg/dL (8.7-10.3); Carbon Dioxide 25.7 mmol/L (21.6-31.8); Chloride 102 mmol/L (96-109); Globulin 2.6 g/dL (1.6-3.3); Glucose 112 mg/dL (70-110); Potassium 4.4 mmol/L (3.5-5.5); Sodium 139 mmol/L (135-145); Total Bilirubin <0.2 mg/dL (0.3-1.2); Total Protein 6.7 g/dL (6.2-8.2)
--- NOTE | 2023-12-15 09:23 | P.PN ---
Subjective Progress Note Date: 12/15/23 Donna Holland, is a 78-year-old female who presented to [facility] emergency room with a chief complaint of worsening shortness of breath She was evaluated in the emergency room vital examination on presentation revealed a temperature of 98.1 pulse 89 respiration 20 blood pressure 179/78 pulse ox 91% on room air Laboratory data revealed a white blood count of 6.9 hemoglobin 14.9 platelet count 2:30 d-dimer 0.85 BUN 16 creatinine 0.94 RSV PCR was positive Testing in the emergency room revealed EKG revealed normal sinus rhythm, chest x-ray did not reveal any acute abnormality, chest CT angiogram was negative for pulmonary embolism Patient was admitted to medical floor for further evaluation and treatment On 12/13/2023 patient alert and oriented 3. Patient reports some improvement still having some episodes of shortness of breath the last congested cough. Patient remains on IV Solu-Medrol pulmonary service is consulted. Current vital signs of 97.8, heart rate 78, respiratory rate 17, blood pressure 160/75 and pulse ox 97% on 3 L. Patient denies chest pain. Patient denies nausea vomiting or diarrhea. Patient denies any urinary burning or frequency anticipate disch arge in the next 24-48 hours On 12/14/2023 patient was seen and examined on the medical floor she is alert and oriented 3 in no apparent distress there is no fever or chills no headache or dizziness she is still complaining of cough shortness of breath and wheezing there is no chest pain no nausea or vomiting no abdominal pain no diarrhea and no urinary symptoms. Patient is improving gradually, will continue to follow closely. On 12/15/2023 patient is alert and oriented x 3. Patient reports some improvement but does report shortness of breath with activity. Patient remains on IV steroids. Discussed with nursing staff to assess for home oxygen. Awaiting further recommendation from pulmonary standpoint. Current vital signs Temp 97.5, heart rate 79, respiratory rate 19 blood pressure remains elevated at 174/79 will adjust blood pressure medications patient on 2 L with 93% pulse ox Objective - Vital Signs Vital signs: Vital Signs Temp 97.5 F L 12/15/23 07:50 Pulse 79 12/15/23 07:50 Resp 19 12/15/23 07:50 BP 174/79 12/15/23 07:50 Pulse Ox 93 L 12/15/23 07:50 FiO2 Intake & Output 12/14/23 12/15/23 12/15/23 18:59 06:59 18:59 Intake Total 900 Balance 900 Intake: Oral 900 Other: # Voids 3 3 - Exam In general patient is alert and oriented x 3 in no distress HEENT head normocephalic and atraumatic Neck is supple no JVD no goiter no lymphadenopathy no carotid bruit Chest examination reveals a scattered crackles bilaterally with wheezing Cardiac exam reveals regular heart sounds S1 and S2 no gallops no murmurs Abdomen is soft nontender no organomegaly with normal bowel sounds Extremity exam reveals no edema no cyanosis or clubbing Neurological examination reveals no gross focal deficits - Labs CBC & Chem 7: 12/15/23 05:11 12/15/23 05:11 Labs: Abnormal Lab Results - Last 24 Hours (Table) 12/15/23 12/15/23 Range/Units 05:11 05:11 MCHC 31.6 L (32.0-37.0) g/dL Immature Gran # 0.12 H (0.00-0.04) X 10*3/uL Eosinophils # 0 L (0.04-0.35) X 10*3/uL Est GFR (CKD-EPI) 58 L (>=60) BUN/Creatinine Ratio 22.40 H (12.00-20.00) Ratio Glucose 112 H (70-110) mg/dL Total Bilirubin <0.2 L (0.3-1.2) mg/dL Albumin/Globulin Ratio 1.58 L (1.60-3.17) Ratio Assessment and Plan Assessment: Acute RSV infection Acute exacerbation of chronic obstructive pulmonary disease Underlying history of hypertension Underlying history of hyperlipidemia Underlying history of seizure disorder Underlying history of COPD Underlying history of kidney cancer diagnosed in 2016 and had left nephrectomy Underlying history of osteoarthritis Previous history of atrial fibrillation At this time patient was seen and examined Home medications reviewed Patient was started on IV Solu-Medrol and inhaled bronchodilators Pulmonary consultation requested For DVT prophylaxis subcu Lovenox Will follow closely
[2023-12-15] MEDS: LOSARTAN 50 MG TAB PO SCH (10:10)
--- NOTE | 2023-12-15 14:28 | P.PN ---
Subjective Progress Note Date: 12/15/23 This is a very pleasant 78-year-old female patient with a known history of atri al fibrillation, fibromyalgia, hyperlipidemia, hypertension, seizure disorder, former smoker with subsequent chronic obstructive pulmonary disease. This past week she had been having issues with upper respiratory symptoms. She was initiated on Ceftin and prednisone in the outpatient setting. This was only 2 days ago and she had only had 1 day of the medications without significant improvement and presented here to the emergency room yesterday for the same. He was having shortness of breath, sore throat, cough and congestion. Chest x-ray shows no acute cardiopulmonary abnormalities. Evidence of COPD. CT angiogram showed no evidence of pulmonary embolism. Lungs were clear of focal cons olidation, pleural effusion or pneumothorax. Mild centrilobular emphysema changes noted. White count 6.9. Hemoglobin 14.9. Platelets 230. D-dimer 0.85. Sodium 137. Potassium 5.1. Bicarb 25. BUN 16. Creatinine 0.94. Glucose 106. Troponin negative x 1. proBNP 595. Viral screen was positive for RSV. She is seen today in consultation on the regular medical floor. She is currently sitting up at the bedside. Awake and alert in no acute distress. She does have some hoarseness. She is maintaining good O2 saturations in the 90s on 3 L/min per nasal cannula. She has been initiated on DuoNeb inhalations, Symbicort, Solu-Medrol. Continued on Omnicef. Lovenox for DVT prophylaxis. On today's evaluation of 12/14/2023, the patient is being seen for a follow-up. The patient is being treated for an acute exacerbation of COPD and RSV infection patient is known to have A-fib, fibromyalgia, hypertension hyperlipidemia. She has been maintained on Symbicort on outpatient basis. Albuterol updrafts are making her shaky and I asked him to take up To Twice a Day. She Remains on IV Solu-Medrol 60 Mg Every 6 Hours. She Remains on OxygenAt 2 L/min nasal cannula with a pulse ox of 97%. Labs from today shows a white cell count of 6 with a hemoglobin of 15.9 and a platelet count of 230. Electrolytes are within normal limits. Procalcitonin level is at 0.15. On 12/15/2023, the patient is improving. She was able to ambulate longer distances. She still having oxygen saturations. She is less bronchospastic and wheezy compared to yesterday. She remains on IV Solu-Medrol. She is able to tolerate albuterol with some limited tremors and no major other side effects. She is able to communicate. No cough or sputum production. No hemoptysis or pleurisy. No other complaints otherwise for now. WBC count of 8.3 with a hemoglobin of 13.7. BUN is at 22 with a creatinine of 1 and a sodium levels at 139 and a potassium level is at 4.4. No fever. No nausea vomiting or diarrhea or abdominal pain. No other new complaints. Objective - Vital Signs Vital signs: Vital Signs Temp 97.5 F L 12/15/23 07:50 Pulse 80 12/15/23 11:05 Resp 19 12/15/23 07:50 BP 174/79 12/15/23 07:50 Pulse Ox 93 L 12/15/23 10:55 FiO2 Intake & Output 12/14/23 12/15/23 12/15/23 18:59 06:59 18:59 Intake Total 900 Balance 900 Intake: Oral 900 Other: # Voids 3 3 - Exam stress. HEAD: Normocephalic. EYES: Normal reaction of pupils, equal size. NOSE: Clear with pink turbinates. THROAT: No erythema or exudates. NECK: No masses, no JVD. CHEST: No chest wall deformity. LUNGS: Equal air entry with bilateral end expiratory wheeze, diminished. CVS: S1 and S2 normal with no audible murmur, regular rhythm. ABDOMEN: No hepatosplenomegaly, normal bowel sounds, no guarding or rigidity. SPINE: No scoliosis or deformity SKIN: No rashes CENTRAL NERVOUS SYSTEM: No focal deficits, tone is normal in all 4 extremities. EXTREMITIES: There is no peripheral edema. No clubbing, no cyanosis. Peripheral pulses are intact. - Labs CBC & Chem 7: 12/15/23 05:11 12/15/23 05:11 Labs: Abnormal Lab Results - Last 24 Hours (Table) 12/15/23 12/15/23 Range/Units 05:11 05:11 MCHC 31.6 L (32.0-37.0) g/dL Immature Gran # 0.12 H (0.00-0.04) X 10*3/uL Eosinophils # 0 L (0.04-0.35) X 10*3/uL Est GFR (CKD-EPI) 58 L (>=60) BUN/Creatinine Ratio 22.40 H (12.00-20.00) Ratio Glucose 112 H (70-110) mg/dL Total Bilirubin <0.2 L (0.3-1.2) mg/dL Albumin/Globulin Ratio 1.58 L (1.60-3.17) Ratio Assessment and Plan Plan: Acute hypoxemic respiratory failure secondary to an acute exacerbation of COPD complicated by RSV, still bronchospastic and wheezy although slightly improved compared to yesterday Acute RSV infection, no vaccination the patient is currently on IV Solu-Medrol COPD maintained on Symbicort on outpatient basis Former smoker Hypertension History of seizure disorder Plan Clinically the patient is improving. I suggest continued IV Solu-Medrol for another 24 hours. Continue with DuoNeb updrafts and cut down the frequency to twice a day and as needed Continue Symbicort Continue IV Solu-Medrol Wean down FiO2 as tolerated to maintain saturation above 90% it is likely that the patient may require home O2 the time of discharge May consider switching this patient to prednisone burst taper as of tomorrow and will continue to follow.
[2023-12-16 08:13] VITALS: BP 177/90; RESP 17; TEMP 97.7
[2023-12-16 08:37] LABS: Basophils # (A) 0.04 X 10*3/uL (0.00-0.10); Basophils % (A) 0.6 %; Eosinophils # (A) 0 X 10*3/uL (0.04-0.35); Eosinophils % (A) 0 %; HCT 39.8 % (37.2-46.3); HGB 12.6 g/dL (12.0-15.0); Lymphocytes # (A) 1.32 X 10*3/uL (0.90-5.00); Lymphocytes % (A) 18.8 %; MCH 30.1 pg (27.0-32.0); MCHC 31.7 g/dL (32.0-37.0); MCV 95.2 FL (80.0-97.0); Mean Platelet Volume 9.6 FL (9.5-12.2); Monocytes # (A) 0.62 X 10*3/uL (0.20-1.00); Monocytes % (A) 8.8 %; NRBC Per 100 WBC 0 X 10*3/uL (0.00-0.01); Neutrophils # (A) 4.94 X 10*3/uL (1.80-7.70); Neutrophils % (A) 70.2 %; Platelet Count 240 X 10*3/uL (140-440); RBC 4.18 X 10*6/uL (4.10-5.20); RDW 13.5 % (11.5-14.5); WBC 7.03 X 10*3/uL (4.50-10.00)
[2023-12-16 09:13] LABS: ALT 17 U/L (8-44); AST 18 U/L (13-35); Albumin 3.8 g/dL (3.8-4.9); Albumin/Globulin Ratio 1.65 Ratio (1.60-3.17); Alkaline Phosphatase 67 U/L (41-126); Blood Urea Nitrogen 22.6 mg/dL (9.0-27.0); Carbon Dioxide 25.6 mmol/L (21.6-31.8); Chloride 103 mmol/L (96-109); Globulin 2.3 g/dL (1.6-3.3); Glucose 134 mg/dL (70-110); Potassium 4.5 mmol/L (3.5-5.5); Sodium 138 mmol/L (135-145); Total Bilirubin <0.2 mg/dL (0.3-1.2); Total Protein 6.1 g/dL (6.2-8.2)
--- NOTE | 2023-12-16 11:22 | P.DS ---
Providers Date of admission: 12/15/23 12:06 Expected date of discharge: 12/16/23 Attending physician: Edward Bonner Consults: 12/12/23 10:49 Consult Physician Routine Consulting Provider: Ernie Valera Consult Reason/Comments: COPD, RSV Do you want consulting provider notified?: Yes Primary care physician: Christofer Oliver [facility] Course: Discharge diagnosis Acute RSV infection Acute exacerbation of chronic obstructive pulmonary disease Underlying history of hypertension Underlying history of hyperlipidemia Underlying history of seizure disorder Underlying history of COPD Underlying history of kidney cancer diagnosed in 2016 and had left nephrectomy Underlying history of osteoarthritis Previous history of atrial fibrillation Hospital course Donna Holland, is a 78-year-old female who presented to [facility] emergency room with a chief complaint of worsening shortness of breath She was evaluated in the emergency room vital examination on presentation revealed a temperature of 98.1 pulse 89 respiration 20 blood pressure 179/78 pulse ox 91% on room air Laboratory data revealed a white blood count of 6.9 hemoglobin 14.9 platelet count 2:30 d-dimer 0.85 BUN 16 creatinine 0.94 RSV PCR was positive Testing in the emergency room revealed EKG revealed normal sinus rhythm, chest x-ray did not reveal any acute abnormality, chest CT angiogram was negative for pulmonary embolism Patient was admitted to medical floor for further evaluation and treatment On 12/13/2023 patient alert and oriented 3. Patient reports some improvement still having some episodes of shortness of breath the last congested cough. Patient remains on IV Solu-Medrol pulmonary service is consulted. Current vital signs of 97.8, heart rate 78, respiratory rate 17, blood pressure 160/75 and pulse ox 97% on 3 L. Patient denies chest pain. Patient denies nausea vomiting or diarrhea. Patient denies any urinary burning or frequency anticipate discharge in the next 24-48 hours On 12/14/2023 patient was seen and examined on the medical floor she is alert and oriented 3 in no apparent distress there is no fever or chills no headache or dizziness she is still complaining of cough shortness of breath and wheezing there is no chest pain no nausea or vomiting no abdominal pain no diarrhea and no urinary symptoms. Patient is improving gradually, will continue to follow closely. On 12/15/2023 patient is alert and oriented x 3. Patient reports some improvement but does report shortness of breath with activity. Patient remains on IV steroids. Discussed with nursing staff to assess for home oxygen. Awaiting further recommendation from pulmonary standpoint. Current vital signs Temp 97.5, heart rate 79, respiratory rate 19 blood pressure remains elevated at 174/79 will adjust blood pressure medications patient on 2 L with 93% pulse ox On 12/16/2023 patient is alert and oriented x 3. Patient reports improvement with shortness of breath. Patient has been transitioned to p.o. steroids. Discussed case with pulmonary services patient may be discharged from pulmonary standpoint. Patient has qualified for home O2. Patient denies chest pain or shortness of breath. Patient denies nausea vomiting or diarrhea. Patient denies any urinary burning or frequency Patient Condition at Discharge: Stable Plan - Discharge Summary Discharge Rx Participant: No New Discharge Prescriptions: New Losartan [Cozaar] 50 mg PO DAILY 30 Days #30 tab predniSONE [Deltasone] 40 mg PO DAILY 16 Days #30 tab Continue Aspirin 81 mg PO DAILY PHENobarbitaL [Phenobarbital] 32.4 mg PO BID Budesonide/Formoterol Fumarate [Symbicort 160-4.5 Mcg Inhaler] 2 puff INHALATION RT-BID Metoprolol Succinate [Toprol XL] 100 mg PO DAILY Discontinued predniSONE 10 mg PO Q2D cefUROXime axetiL [Ceftin] 500 mg PO BID No Action Multivitamins, Thera [Multivitamin (formulary)] 1 tab PO DAILY Discharge Medication List Aspirin 81 mg PO DAILY 11/20/14 [History] PHENobarbitaL [Phenobarbital] 32.4 mg PO BID 11/20/14 [History] Budesonide/Formoterol Fumarate [Symbicort 160-4.5 Mcg Inhaler] 2 puff INHALATION RT-BID 12/31/20 [History] Metoprolol Succinate [Toprol XL] 100 mg PO DAILY 12/31/20 [History] Multivitamins, Thera [Multivitamin (formulary)] 1 tab PO DAILY 12/12/23 [History] Losartan [Cozaar] 50 mg PO DAILY 30 Days #30 tab 12/16/23 [Rx] predniSONE [Deltasone] 40 mg PO DAILY 16 Days #30 tab 12/16/23 [Rx] Follow up Appointment(s)/Referral(s): [facility] [NON-STAFF] - As Needed (Nebulizer and oxygen) Christofer Oliver MD [Primary Care Provider] - 1-2 days
[2023-12-16 12:08] VITALS: PULSE 71
[2023-12-16] MEDS: predniSONE 20 MG TAB PO SCH (14:32)
--- NOTE | 2023-12-16 19:22 | P.PN ---
Subjective Progress Note Date: 12/16/23 This is a very pleasant 78-year-old female patient with a known history of atri al fibrillation, fibromyalgia, hyperlipidemia, hypertension, seizure disorder, former smoker with subsequent chronic obstructive pulmonary disease. This past week she had been having issues with upper respiratory symptoms. She was initiated on Ceftin and prednisone in the outpatient setting. This was only 2 days ago and she had only had 1 day of the medications without significant improvement and presented here to the emergency room yesterday for the same. He was having shortness of breath, sore throat, cough and congestion. Chest x-ray shows no acute cardiopulmonary abnormalities. Evidence of COPD. CT angiogram showed no evidence of pulmonary embolism. Lungs were clear of focal cons olidation, pleural effusion or pneumothorax. Mild centrilobular emphysema changes noted. White count 6.9. Hemoglobin 14.9. Platelets 230. D-dimer 0.85. Sodium 137. Potassium 5.1. Bicarb 25. BUN 16. Creatinine 0.94. Glucose 106. Troponin negative x 1. proBNP 595. Viral screen was positive for RSV. She is seen today in consultation on the regular medical floor. She is currently sitting up at the bedside. Awake and alert in no acute distress. She does have some hoarseness. She is maintaining good O2 saturations in the 90s on 3 L/min per nasal cannula. She has been initiated on DuoNeb inhalations, Symbicort, Solu-Medrol. Continued on Omnicef. Lovenox for DVT prophylaxis. On today's evaluation of 12/14/2023, the patient is being seen for a follow-up. The patient is being treated for an acute exacerbation of COPD and RSV infection patient is known to have A-fib, fibromyalgia, hypertension hyperlipidemia. She has been maintained on Symbicort on outpatient basis. Albuterol updrafts are making her shaky and I asked him to take up To Twice a Day. She Remains on IV Solu-Medrol 60 Mg Every 6 Hours. She Remains on OxygenAt 2 L/min nasal cannula with a pulse ox of 97%. Labs from today shows a white cell count of 6 with a hemoglobin of 15.9 and a platelet count of 230. Electrolytes are within normal limits. Procalcitonin level is at 0.15. On 12/15/2023, the patient is improving. She was able to ambulate longer distances. She still having oxygen saturations. She is less bronchospastic and wheezy compared to yesterday. She remains on IV Solu-Medrol. She is able to tolerate albuterol with some limited tremors and no major other side effects. She is able to communicate. No cough or sputum production. No hemoptysis or pleurisy. No other complaints otherwise for now. WBC count of 8.3 with a hemoglobin of 13.7. BUN is at 22 with a creatinine of 1 and a sodium levels at 139 and a potassium level is at 4.4. No fever. No nausea vomiting or diarrhea or abdominal pain. No other new complaints. On today's evaluation of 12/16/2023, the patient is doing much better. She still having some oxygen desaturation and the patient will likely need home O2. Pulse ox on 2 L of oxygen nasal cannula is in order of 98%. Less bronchospastic and wheezy. Remains on steroids. Remains on bronchodilators. She is still recovering from her acute RSV infection/pneumonia of the lungs with secondary COPD exacerbation. There was a white cell count of 7 with a hemoglobin 12.6 and a platelet count of 240. BUN is at 22 with a creatinine of 1. Electrolytes are all within normal limits. Objective - Vital Signs Vital signs: Vital Signs Temp 97.7 F 12/16/23 07:42 Pulse 71 12/16/23 12:05 Resp 17 12/16/23 07:42 BP 177/90 12/16/23 07:42 Pulse Ox 98 12/16/23 08:51 FiO2 Intake & Output 12/16/23 12/16/23 12/17/23 06:59 18:59 06:59 Intake Total 850 Balance 850 Intake: Oral 850 Other: Voiding Method Toilet # Voids 3 - Exam stress. HEAD: Normocephalic. EYES: Normal reaction of pupils, equal size. NOSE: Clear with pink turbinates. THROAT: No erythema or exudates. NECK: No masses, no JVD. CHEST: No chest wall deformity. LUNGS: Equal air entry with bilateral end expiratory wheeze, diminished. CVS: S1 and S2 normal with no audible murmur, regular rhythm. ABDOMEN: No hepatosplenomegaly, normal bowel sounds, no guarding or rigidity. SPINE: No scoliosis or deformity SKIN: No rashes CENTRAL NERVOUS SYSTEM: No focal deficits, tone is normal in all 4 extremities. EXTREMITIES: There is no peripheral edema. No clubbing, no cyanosis. Peripheral pulses are intact. - Labs CBC & Chem 7: 12/16/23 04:40 12/16/23 04:40 Labs: Abnormal Lab Results - Last 24 Hours (Table) 12/16/23 12/16/23 Range/Units 04:40 04:40 MCHC 31.7 L (32.0-37.0) g/dL Immature Gran # 0.11 H (0.00-0.04) X 10*3/uL Eosinophils # 0 L (0.04-0.35) X 10*3/uL Est GFR (CKD-EPI) 58 L (>=60) BUN/Creatinine Ratio 22.60 H (12.00-20.00) Ratio Glucose 134 H (70-110) mg/dL Total Bilirubin <0.2 L (0.3-1.2) mg/dL Total Protein 6.1 L (6.2-8.2) g/dL Assessment and Plan Plan: Acute hypoxemic respiratory failure secondary to an acute exacerbation of COPD complicated by RSV, improved considerably Acute RSV infection, no vaccination the patient is currently on IV Solu-Medrol COPD maintained on Symbicort on outpatient basis Former smoker Hypertension History of seizure disorder Plan Clinically the patient is improving. Will discharge the patient home on home O2 in addition to a prednisone burst taper. Anticipate further improvement in oxygenation over the next few weeks as the patient is recovering from an acute RSV pneumonia/COPD exacerbation. Continue with DuoNeb updrafts and cut down the frequency to twice a day and as needed Continue Symbicort Follow-up with pulmonary in outpatient basis. Cleared for discharge from a pulmonary standpoint. The patient has to continue her DuoNeb updrafts on outpatient basis. A nebulizer be provided. Home O2 will be also provided. This will be utilized at 2 L nasal cannula.
[2023-12-17] MEDS ORDERED: predniSONE 20 MG TAB PO SCH (09:00)
== END 2023-12-16 16:23 | disposition home or self-care (01) | DRG 190 ==
LOC: EC 08:23 → SUPCPDRO 08:23 → 4SSUR 10:55 → OBSVTOIN 12-15 12:06
PROVIDERS: ADMIT Internal Medicine; ATTEND Internal Medicine
DX: J43.2 Centrilobular emphysema (principal); J96.01 Acute respiratory failure with hypoxia; B97.4 Respiratory syncytial virus as the cause of diseases classified elsewhere; Z99.81 Dependence on supplemental oxygen; I48.91 Unspecified atrial fibrillation; I10 Essential (primary) hypertension; E78.5 Hyperlipidemia, unspecified; M79.7 Fibromyalgia; Z79.82 Long term (current) use of aspirin; Z79.51 Long term (current) use of inhaled steroids; Z79.1 Long term (current) use of non-steroidal anti-inflammatories (NSAID); Z87.891 Personal history of nicotine dependence; Z11.52 Encounter for screening for COVID-19; Z85.528 Personal history of other malignant neoplasm of kidney; Z90.5 Acquired absence of kidney; Z79.899 Other long term (current) drug therapy; Z88.8 Allergy status to other drugs, medicaments and biological substances; Z88.1 Allergy status to other antibiotic agents; Z88.7 Allergy status to serum and vaccine; Z88.0 Allergy status to penicillin; Z88.2 Allergy status to sulfonamides; Z86.69 Personal history of other diseases of the nervous system and sense organs
CPT/HCPCS: 36415; 71046; 71275; 80053; 83605; 83735; 83880; 84145; 84484; 85025; 85379; 85610; 85730; 87636; 93005; 94640; 94760; 96374; 96375; 99285